=== PATIENT | female | born 1970 | race Caucasian/White ===

== ENCOUNTER 2017-01-29 11:55 | Emergency (ER) | payer OTHER ==
[~2017-01-29] VITALS: Ht 170.2 cm; Wt 90.5 kg
[~2017-01-29 11:55] MED LIST: ALBUAER2 INH; ATOR10TA88 PO; CETI10TA84 PO; CITA40TA4 PO; FENO134C PO; FERROUS SULFATE PO; LRS10 PO; NAPR500T3 PO; NSNN50 NAE; TNR25 PO
[2017-01-29 12:04] VITALS: TEMP 36.9; Ht 170.2 cm; Wt 90.5 kg
[2017-01-29] MEDS ORDERED: VNTHFA/IN INH (12:22)
[2017-01-29] MEDS ORDERED: MOME6000 (12:22)
[2017-01-29] MEDS ORDERED: AZITHROMYCIN 250 MG TAB PO STA (12:40)
[2017-01-29] MEDS ORDERED: ALBUT/IPRATROP 3MG/0.5MG NEB 3 ML VIAL INH ONE (12:45)
[2017-01-29 12:56] VITALS: O2SAT 95
[2017-01-29 13:07] VITALS: PULSE 64; O2SAT 97
--- NOTE | 2017-01-29 13:09 | DIAGNOSTIC IMAGING REPORT ---
CHEST ONE VIEW PORTABLE CLINICAL HISTORY: Shortness of breath. COMPARISON STUDY: Chest radiograph August 21, 2014. FINDINGS: Lung volumes are at the lower limits of normal. Lungs are clear. There is no pneumothorax or pleural effusion. Cardiac size is normal. Mediastinal contours are normal. There is no evidence of pulmonary edema. IMPRESSION: No acute cardiopulmonary findings. Electronically signed by: Tay De Leon M.D. 01/29/2017 1:08 PM Dictated Date/Time: 01/29/2017 1:08 PM
[2017-01-29 13:13] LABS: HEMATOCRIT 38.3 % (37-47); MEAN CELL VOLUME 83.3 fL (80-100); MEAN CORPUSCULAR HEMOGLOBIN 28.5 pg (25-34); MEAN CORPUSCULAR HGB CONC 34.2 g/dl (32-36); MEAN PLATELET VOLUME 9.3 fL (7.4-10.4); PLATELET COUNT 317 K/uL (130-400); WHITE BLOOD COUNT 11.56 K/uL (4.8-10.8)
--- NOTE | 2017-01-29 13:16 | EMERGENCY ROOM VISIT NOTE ---
History Report prepared by Laura: Usman Patel Under the Supervision of: Dr. Yong Forte M.D. First contact with patient: 12:08 Chief Complaint: FLU LIKE SX Stated Complaint: SICK History of Present Illness The patient is a 46 year old female who presents to the Emergency Room with complaints of a persistent illness beginning about 3 days ago. She notes she initially developed a sore throat and then a cough. She reports being diagnosed with bronchitis 2 days ago, and was put on Augmentin and prednisone. She denies having any abdominal pain, but notes occasionally urinating with her cough. The patient last took Tylenol last night, and also uses an inhaler. Source of History: patient Onset: about 3 days ago Position: other (global) Quality: other (illness) Timing: other (persistent) Associated Symptoms: + cough, + sorethroat, + urinary symptoms (urination with cough), No abdominal pain Review of Systems See HPI for pertinent positives & negatives. A total of 10 systems reviewed and were otherwise negative. Past Medical & Surgical Medical Problems: (1) History of acute bronchitis Family History Diabetes mellitus Heart disease Hypertension Lung disease Social History Smoking Status: Never Smoker Alcohol Use: none Drug Use: none Marital Status: Housing Status: lives with family Occupation Status: other Current/Historical Medications Scheduled Albuterol Hfa (Ventolin Hfa), 2-4 PUFFS INH Q6H Atenolol (Atenolol), 25 MG PO QAM Atorvastatin (Lipitor), 10 MG PO QAM Azithromycin (Zithromax), 250 MG PO DAILY Cetirizine (Zyrtec), 10 MG PO QAM Citalopram (Citalopram Hydrobromide), 40 MG PO QAM Fenofibrate Micronized (Tricor), 134 MG PO QAM Miscellaneous Medications Mometasone Furoate (Nasal) (Mometasone Furoate) Allergies Coded Allergies: Oxycodone (Verified Adverse Reaction, Unknown, "IT WINDS ME UP!"-CAN'T RELAX-ALSO INEFFECTIVE, 01/29/17) Physical Exam Vital Signs Date Time Temp Pulse Resp B/P Pulse Ox O2 Delivery O2 Flow Rate FiO2 01/29/17 14:42 104 18 129/81 95 Room Air 01/29/17 13:08 76 01/29/17 13:07 64 16 97 Room Air 01/29/17 12:56 95 01/29/17 12:04 36.9 68 18 157/104 95 Physical Exam GENERAL: Patient is a healthy-appearing well-nourished HEAD: Normocephalic atraumatic EYES: Ocular movements intact pupils equal and react to light OROPHARYNX mucous membranes are moist no exudates present no erythema or edema present NECK: Supple no nuchal rigidity CHEST: Good equal expansion LUNGS: Bilateral wheezing in the bases. CARDIAC: Normal S1 and S2 ABDOMEN: Soft nontender no guarding BACK: No CVA tenderness EXTREMITIES: No pain upon palpation normal muscle strength in all groups no clubbing cyanosis or edema NEURO: Patient is following commands is answering questions appropriately. Alert and oriented x3 Cranial Nerves 2-12 grossly intact Medical Decision & Procedures ER Provider Diagnostic Interpretation: Radiology results as stated below per my review and radiologist interpretation: CHEST ONE VIEW PORTABLE FINDINGS: Lung volumes are at the lower limits of normal. Lungs are clear. There is no pneumothorax or pleural effusion. Cardiac size is normal. Mediastinal contours are normal. There is no evidence of pulmonary edema. IMPRESSION: No acute cardiopulmonary findings. Electronically signed by: Tay De Leon M.D. 01/29/2017 1:08 PM Dictated Date/Time: 01/29/2017 1:08 PM Laboratory Results 01/29/17 12:50 Red Blood Count 4.60, Mean Corpuscular Volume 83.3, Mean Corpuscular Hemoglobin 28.5, Mean Corpuscular Hemoglobin Concent 34.2, Mean Platelet Volume 9.3, Neutrophils (%) (Auto) 69.0, Lymphocytes (%) (Auto) 22.5, Monocytes (%) (Auto) 7.5, Eosinophils (%) (Auto) 0.4, Basophils (%) (Auto) 0.3, Neutrophils # (Auto) 7.98, Lymphocytes # (Auto) 2.60, Monocytes # (Auto) 0.87, Eosinophils # (Auto) 0.05, Basophils # (Auto) 0.03 01/29/17 12:50 Test 01/29/17 12:17 01/29/17 12:50 01/29/17 13:03 01/29/17 13:30 Influenza Type A (RT-PCR) Neg for Influ A (NEG) Influenza Type A Antigen Neg for Influ A (NEG) Influenza Type B Antigen Neg for Influ B (NEG) Influenza Type B (RT-PCR) Neg for Influ B (NEG) White Blood Count 11.56 K/uL (4.8-10.8) Red Blood Count 4.60 M/uL (4.2-5.4) Hemoglobin 13.1 g/dL (12.0-16.0) Hematocrit 38.3 % (37-47) Mean Corpuscular Volume 83.3 fL (80-100) Mean Corpuscular Hemoglobin 28.5 pg (25-34) Mean Corpuscular Hemoglobin Concent 34.2 g/dl (32-36) Platelet Count 317 K/uL (130-400) Mean Platelet Volume 9.3 fL (7.4-10.4) Neutrophils (%) (Auto) 69.0 % Lymphocytes (%) (Auto) 22.5 % Monocytes (%) (Auto) 7.5 % Eosinophils (%) (Auto) 0.4 % Basophils (%) (Auto) 0.3 % Neutrophils # (Auto) 7.98 K/uL (1.4-6.5) Lymphocytes # (Auto) 2.60 K/uL (1.2-3.4) Monocytes # (Auto) 0.87 K/uL (0.11-0.59) Eosinophils # (Auto) 0.05 K/uL (0-0.5) Basophils # (Auto) 0.03 K/uL (0-0.2) RDW Standard Deviation 39.9 fL (36.4-46.3) RDW Coefficient of Variation 13.3 % (11.5-14.5) Immature Granulocyte % (Auto) 0.3 % Immature Granulocyte # (Auto) 0.03 K/uL (0.00-0.02) Anion Gap 5.0 mmol/L (3-11) Est Creatinine Clear Calc Drug Dose 118.6 ml/min Estimated GFR () 120.5 Estimated GFR (Non- 103.9 BUN/Creatinine Ratio 20.1 (10-20) Calcium Level 9.2 mg/dl (8.5-10.1) Total Bilirubin 0.3 mg/dl (0.2-1) Aspartate Amino Transf (AST/SGOT) 10 U/L (15-37) Alanine Aminotransferase (ALT/SGPT) 22 U/L (12-78) Alkaline Phosphatase 84 U/L (45-117) Total Protein 7.9 gm/dl (6.4-8.2) Albumin 3.7 gm/dl (3.4-5.0) Globulin 4.2 gm/dl (2.5-4.0) Albumin/Globulin Ratio 0.9 (0.9-2) Urine Color YELLOW Urine Appearance CLEAR (CLEAR) Urine pH 6.5 (4.5-7.5) Urine Specific [place] 1.003 (1.000-1.030) Urine Protein NEG (NEG) Urine Glucose (UA) NEG (NEG) Urine Ketones NEG (NEG) Urine Occult Blood NEG (NEG) Urine Nitrite NEG (NEG) Urine Bilirubin NEG (NEG) Urine Urobilinogen NEG (NEG) Urine Leukocyte Esterase NEG (NEG) Labs reviewed by ED physician. Medications Administered Medications (Trade) Dose Ordered Sig/Elizabeth Route Start Time Stop Time Status Last Admin Dose Admin Albuterol/ Ipratropium (Duoneb) 12 ml ONE ONCE INH 01/29/17 12:45 01/29/17 12:46 DC 01/29/17 13:06 12 ML Azithromycin (Zithromax Tab) 500 mg NOW STAT PO 01/29/17 12:40 01/29/17 12:44 DC 01/29/17 13:03 500 MG Ketorolac Tromethamine (Toradol Inj) 30 mg NOW STAT IV 01/29/17 13:29 01/29/17 13:30 DC 01/29/17 13:56 30 MG ECG Indication: other (illness) Rate (beats per minute): 62 Rhythm: normal sinus Findings: no acute ischemic change, no ectopy ED Course 1236: Past medical records reviewed. The patient was evaluated in room A12B. A complete history and physical examination was performed. 1240: Ordered Zithromax Tab 500 mg PO. 1245: Ordered Duoneb 12 ml INH. 1329: Ordered Toradol Inj 30 mg IV, and NSS 1,000 ml @ 999 mls/hr IV. 1420: Upon reexamination the patient is doing well. I discussed results and treatment plan with the patient. She verbalizes agreement and understanding. The patient is ready for discharge. Medical Decision Differential diagnosis: Etiologies such as infections, reactive airway disease, pneumonia, pneumothorax , COPD, CHF, cardiac ischemia, pulmonary embolism, musculoskeletal, gastrointestinal, as well as others were entertained. This is a 46-year-old female who presents emergency department complaining of upper respiratory like symptoms. The patient was given a DuoNeb breathing treatment in the emergency department. She was a 28 started on prednisone as well as Augmentin and given cough syrup by her primary care physician. I do believe the patient's white blood count is elevated due to starting prednisone. I believe the patient is well enough to be discharged home. I will increase her coverage by placing the patient on azithromycin. She was given a spacer for her inhaler at home. Patient was in agreement with the treatment plan. Impression Primary Impression: Bronchitis Scribe Attestation The scribe's documentation has been prepared under my direction and personally reviewed by me in its entirety. I confirm that the note above accurately reflects all work, treatment, procedures, and medical decision making performed by me. Departure Information Dispostion Home / Self-Care Prescriptions Azithromycin (ZITHROMAX) 250 Mg Tab 250 MG PO DAILY, #4 TAB Prov: Yong Forte MD 01/29/17 Referrals Rosalind Pruitt M.D. (PCP) Patient Instructions ED URI Viral W Wheezing, My [facility] Additional Instructions Continue taking Prednisone, Augmentin and cough syrup Take 1000 mg Tylenol every 6 hours Take 600 mg Ibuprofen every 6 hours Use inhaler twice every 6 hours Use honey for cough Culture results are usually available in approx 48 hours You have been examined and treated today on an emergency basis only. This is not a substitute for, or an effort to provide, complete comprehensive medical care. It is impossible to recognize and treat all injuries or illnesses in a single emergency department visit. It is therefore important that you follow up closely with Dr Pruitt. Call as soon as possible for an appointment. Thank you for your time and consideration. I look forward to speaking with you again soon. Please don't hesitate to call us if you have any questions.
[2017-01-29 13:22] LABS: URINE APPEARANCE CLEAR (CLEAR); URINE BILIRUBIN NEG (NEG); URINE COLOR YELLOW; URINE NITRITE NEG (NEG); URINE PH 6.5 (4.5-7.5); URINE SPECIFIC GRAVITY 1.003 (1.000-1.030); UROBILINOGEN NEG (NEG)
[2017-01-29 13:25] LABS: MANUAL MICROSCOPIC REQUIRED? NO; REVIEW REQ? NO
[2017-01-29] MEDS ORDERED: SODIUM CHLORIDE 0.9% 1000ML 1,000 ML IV STA (13:29)
[2017-01-29] MEDS ORDERED: KETOROLAC TROMETHAMINE 30 MG/ML VIAL IV STA (13:29)
[2017-01-29 13:40] LABS: BUN/CREATININE RATIO 20.1 (10-20); CALCIUM 9.2 mg/dl (8.5-10.1); CREATININE 0.67 mg/dl (0.60-1.20); POTASSIUM 3.7 mmol/L (3.5-5.1)
[2017-01-29 13:41] LABS: BASO % 0.3 %; BASO ABS # 0.03 K/uL (0-0.2); COMPLETE YES; EOS % 0.4 %; IG% 0.3 %; LYMPH % 22.5 %; MONO % 7.5 %
[2017-01-29 13:43] LABS: ALB/GLOB RATIO 0.9 (0.9-2)
[2017-01-29] MEDS ORDERED: AZIT250T5 PO (13:52)
[2017-01-29 14:18] LABS: INFLUENZA A PCR Neg for Influ A (NEG); INFLUENZA B PCR Neg for Influ B (NEG)
[2017-01-29 14:42] VITALS: BP 129/81; PULSE 104; O2SAT 95
[2017-02-01 13:33] LABS: BORDETELLA PERTUSSIS SOURCE Nasal Swab
== END 2017-01-29 14:42 | disposition home or self-care (01) ==
LOC: C.EDB 11:57 → C.EDA 14:42
DX: J40 Bronchitis, not specified as acute or chronic (principal); Z79.899 Other long term (current) drug therapy; Z88.5 Allergy status to narcotic agent; Z83.3 Family history of diabetes mellitus; Z82.49 Family history of ischemic heart disease and other diseases of the circulatory system

== ENCOUNTER 2018-03-15 19:17 | Emergency (ER) | payer OTHER ==
[~2018-03-15] VITALS: Ht 170.2 cm; Wt 89.1 kg
[~2018-03-15 19:17] MED LIST changes: -ALBUAER2 INH; +ATOR10TA82 PO; -ATOR10TA88 PO; -FERROUS SULFATE PO; -LRS10 PO; +MOME6000 NAE; -NAPR500T3 PO; -NSNN50 NAE; +VNTHFA/IN INH
[2018-03-15 19:21] VITALS: TEMP 36.7; Ht 170.2 cm; Wt 89.1 kg
[2018-03-15] MEDS ORDERED: IBUPROFEN 200 MG TAB PO STA (19:34)
[2018-03-15] MEDS ORDERED: ACETAMINOPHEN 500 MG TAB PO STA (19:34)
[2018-03-15] MEDS ORDERED: ALBUT/IPRATROP 3MG/0.5MG NEB 3 ML VIAL INH STA (19:34)
--- NOTE | 2018-03-15 19:45 | EMERGENCY ROOM VISIT NOTE ---
History Report prepared by Laura: Samaria Ascencio Under the Supervision of: Dr. Nathan Jacques M.D. First contact with patient: 19:25 Chief Complaint: COUGH Stated Complaint: COUGH History of Present Illness The patient is a 47 year old white female with a past medical history of bronchitis, pneumonia who presents to the ED with a cc of constant cough beginning 2 weeks ago. Cough produces thick clear sputum. She finished a course of Augmentin last week to no relief. Positive upset stomach, diarrhea, chest pain. She does not smoke. She has had sick contacts at work. She notes that she traveled to [place] over the weekend. Source of History: patient Onset: 2 weeks ago Position: chest Quality: other (cough) Timing: constant Associated Symptoms: + chest pain, + diarrhea Note: Pt reports upset stomach. Review of Systems See HPI for pertinent positives and negatives. A total of ten systems were reviewed and were otherwise negative. Past Medical & Surgical Medical Problems: (1) History of acute bronchitis Family History Diabetes mellitus Heart disease Hypertension Lung disease Social History Smoking Status: Never Smoker Alcohol Use: none Drug Use: none Marital Status: Housing Status: lives with family Occupation Status: other Current/Historical Medications Scheduled Atenolol (Atenolol), 25 MG PO QAM Atorvastatin (Lipitor), 10 MG PO QAM Cetirizine (Zyrtec), 10 MG PO QAM Citalopram (Citalopram Hydrobromide), 40 MG PO QAM Fenofibrate Micronized (Tricor), 134 MG PO QAM Mometasone Furoate (Nasal) (Mometasone Furoate), 2 SPRAYS SHARIF DAILY Multivitamin (Multivitamin), 1 TAB PO DAILY Scheduled PRN Albuterol Hfa (Ventolin Hfa), 2-4 PUFFS INH Q6H PRN for SOB/Wheezing Allergies Coded Allergies: Oxycodone (Verified Adverse Reaction, Unknown, "IT WINDS ME UP!"-CAN'T RELAX-ALSO INEFFECTIVE, 01/29/17) Physical Exam Vital Signs Date Time Temp Pulse Resp B/P (MAP) Pulse Ox O2 Delivery O2 Flow Rate FiO2 03/15/18 21:08 90 03/15/18 20:46 94 20 143/83 95 Room Air 03/15/18 20:03 97 Room Air 03/15/18 20:00 97 Room Air 03/15/18 19:21 36.7 100 18 142/97 97 Room Air Physical Exam GENERAL: Awake, alert, well-appearing, NAD, wearing glasses. HENT: Normocephalic, atraumatic. EYES: Normal conjunctiva. Sclera non-icteric. PERRL. No anisocoria. NECK: Supple. No nuchal rigidity. FROM. RESPIRATORY: CTAB, no rhonchi, wheezing, crackles CARDIAC: RRR, no MRG ABDOMEN: Soft, mild epigastric discomfort, not peritonitic, BS+ MSK: No chest wall TTP, no LE edema NEURO: GCS 15, CN 2-12 intact, moves all 4s on command. Deliberate stuttering speech. SKIN: No rash or jaundice noted. Medical Decision & Procedures ER Provider Diagnostic Interpretation: Radiology results as stated below per my review and radiologist interpretation: CHEST ONE VIEW PORTABLE HISTORY: 47 years-old Female EVALUATE RESPIRATORY DISTRESS.DYSPNEA acute respiratory distress with cough COMPARISON: Chest radiograph 01/29/2017 TECHNIQUE: Portable AP view of the chest FINDINGS: Cardiomediastinal and hilar silhouettes are within normal limits. No pneumothorax, pleural effusion, focal airspace consolidation or overt pulmonary edema. The bones of the chest appear grossly intact. Cholecystectomy clips noted. IMPRESSION: No acute process. The above report was generated using voice recognition software. It may contain grammatical, syntax or spelling errors. Electronically signed by: Marlon Dimas M.D. 03/15/2018 8:16 PM Dictated Date/Time: 03/15/2018 8:15 PM Laboratory Results 03/15/18 19:55 Red Blood Count 4.88, Mean Corpuscular Volume 83.0, Mean Corpuscular Hemoglobin 28.5, Mean Corpuscular Hemoglobin Concent 34.3, Mean Platelet Volume 9.4, Neutrophils (%) (Auto) 62.7, Lymphocytes (%) (Auto) 26.2, Monocytes (%) (Auto) 8.6, Eosinophils (%) (Auto) 1.9, Basophils (%) (Auto) 0.2, Neutrophils # (Auto) 3.27, Lymphocytes # (Auto) 1.37, Monocytes # (Auto) 0.45, Eosinophils # (Auto) 0.10, Basophils # (Auto) 0.01 03/15/18 19:55 Test 03/15/18 19:55 White Blood Count 5.22 K/uL (4.8-10.8) Red Blood Count 4.88 M/uL (4.2-5.4) Hemoglobin 13.9 g/dL (12.0-16.0) Hematocrit 40.5 % (37-47) Mean Corpuscular Volume 83.0 fL (80-100) Mean Corpuscular Hemoglobin 28.5 pg (25-34) Mean Corpuscular Hemoglobin Concent 34.3 g/dl (32-36) Platelet Count 222 K/uL (130-400) Mean Platelet Volume 9.4 fL (7.4-10.4) Neutrophils (%) (Auto) 62.7 % Lymphocytes (%) (Auto) 26.2 % Monocytes (%) (Auto) 8.6 % Eosinophils (%) (Auto) 1.9 % Basophils (%) (Auto) 0.2 % Neutrophils # (Auto) 3.27 K/uL (1.4-6.5) Lymphocytes # (Auto) 1.37 K/uL (1.2-3.4) Monocytes # (Auto) 0.45 K/uL (0.11-0.59) Eosinophils # (Auto) 0.10 K/uL (0-0.5) Basophils # (Auto) 0.01 K/uL (0-0.2) RDW Standard Deviation 38.5 fL (36.4-46.3) RDW Coefficient of Variation 12.8 % (11.5-14.5) Immature Granulocyte % (Auto) 0.4 % Immature Granulocyte # (Auto) 0.02 K/uL (0.00-0.02) Prothrombin Time 10.7 SECONDS (9.0-12.0) Prothromb Time International Ratio 1.0 (0.9-1.1) Activated Partial Thromboplast Time 27.2 SECONDS (21.0-31.0) Partial Thromboplastin Ratio 1.0 Anion Gap 7.0 mmol/L (3-11) Est Creatinine Clear Calc Drug Dose 123.8 ml/min Estimated GFR () 122.1 Estimated GFR (Non- 105.3 BUN/Creatinine Ratio 15.7 (10-20) Calcium Level 8.8 mg/dl (8.5-10.1) Total Bilirubin 0.4 mg/dl (0.2-1) Aspartate Amino Transf (AST/SGOT) 18 U/L (15-37) Alanine Aminotransferase (ALT/SGPT) 20 U/L (12-78) Alkaline Phosphatase 79 U/L (45-117) Total Protein 7.9 gm/dl (6.4-8.2) Albumin 3.6 gm/dl (3.4-5.0) Globulin 4.3 gm/dl (2.5-4.0) Albumin/Globulin Ratio 0.8 (0.9-2) Laboratory results reviewed by me Medications Administered Medications (Trade) Dose Ordered Sig/Elizabeth Route Start Time Stop Time Status Last Admin Dose Admin Acetaminophen (Tylenol Tab) 1,000 mg NOW STAT PO 03/15/18 19:34 03/15/18 19:35 DC 03/15/18 19:57 1,000 MG Albuterol/ Ipratropium (Duoneb) 3 ml NOW STAT INH 03/15/18 19:34 03/15/18 19:35 DC 03/15/18 19:57 3 ML Ibuprofen (Advil Tab) 400 mg NOW STAT PO 03/15/18 19:34 03/15/18 19:36 DC 03/15/18 19:57 400 MG ECG Per My Interpretation Indication: chest pain Rate (beats per minute): 83 Rhythm: sinus rhythm Findings: T-wave inversion (single TWI lead 3), other (normal intervals, normal axis) Comparison ECG Date: 29-Jan-2017 Change: no significant change ED Course 1927: The patient was evaluated in room B6. A complete history and physical exam was performed. 2121: I reevaluated the patient. Discussed results and discharge instructions: She verbalized understanding and agreement. The patient is ready for discharge. Medical Decision Nursing notes reviewed. Ancillary studies and prior records reviewed. The patient is a 47 year old white female with a past medical history of bronchitis, pneumonia who presents to the ED with a cc of constant cough beginning 2 weeks ago. Differential diagnosis: Etiologies such as infections, reactive airway disease, pneumonia, pneumothorax , COPD, CHF, cardiac ischemia, pulmonary embolism, musculoskeletal, gastrointestinal, as well as others were entertained. Patient was seen and evaluated the bedside. Patient has had some issues with some recurrent bronchitis and pneumonia. Patient is noted some cough this been ongoing for approximately 2 weeks. Patient had finished a course of Augmentin approximately week prior. Patient noted that her most recent bowel movement it was more watery in nature. Patient denies any stream or well water, hunting, camping, travel. The patient did have a recent antibiotic use. Patient did have blood work completed along with a chest x-ray. Patient's blood work is very reassuring. White blood cell counts within normal limits patient is not anemic. Kidney functions normal. Patient's chest x-ray is clear. The patient is afebrile with normal vital signs. I believe the patient is suitable for outpatient follow-up and treatment at this time. Patient was given strict follow-up, discharge, and return precautions. All questions were answered. Patient was deemed suitable for outpatient follow-up at this time. Patient agreed with the plan of care and was safely discharged home. Medication Reconcilliation Current Medication List: was personally reviewed by me Blood Pressure Screening Patient's blood pressure: Elevated blood pressure Blood pressure disposition: Referred to PCP Impression Primary Impression: Acute bronchitis Additional Impression: Hypokalemia Scribe Attestation The scribe's documentation has been prepared under my direction and personally reviewed by me in its entirety. I confirm that the note above accurately reflects all work, treatment, procedures, and medical decision making performed by me. Departure Information Dispostion Home / Self-Care Referrals Rosalind Pruitt M.D. (PCP) Patient Instructions Bronchitis Acute, Hypokalemia [place], My [facility] Additional Instructions Please return to the emergency department if you have worsening or recurrent symptoms not amenable to at-home treatment. Please call for a follow-up appointment with her primary care physician. Please take your medications as prescribed. If you have other concerns and/or complaints please feel free to also call your primary care physician's office or return the ED for further evaluation, management, and treatment. You may take 800 mg Ibuprofen every 6 hours as needed for pain/fever with food unless told by your physician not to take NSAIDs. You may take tylenol 1000 mg every 6 hours as needed for pain/fever unless told by your physician to not take it or have liver problems. You may take motrin and tylenol separately or at the same time. Take your medications as prescribed. You have been examined and treated today on an emergency basis only. This is not a substitute for, or an effort to provide, complete comprehensive medical care. It is impossible to recognize and treat all injuries or illnesses in a single emergency department visit. It is therefore important that you follow up closely with [facility], your PCP, and/or your specialist(s). Call as soon as possible for an appointment. Thank you for your time and consideration. I look forward to speaking with you again soon. Please don't hesitate to call us if you have any questions. Problem Qualifiers Primary Impression: Acute bronchitis Bronchitis organism: unspecified organism Qualified Codes: J20.9 - Acute bronchitis, unspecified
[2018-03-15] MEDS ORDERED: MULT-506 PO (19:54)
[2018-03-15 20:00] VITALS: O2SAT 97
[2018-03-15 20:14] LABS: BASO % 0.2 %; BASO ABS # 0.01 K/uL (0-0.2); EOS % 1.9 %; HEMATOCRIT 40.5 % (37-47); HEMOGLOBIN 13.9 g/dL (12.0-16.0); IG# 0.02 K/uL (0.00-0.02); LYMPH % 26.2 %; LYMPH ABS # 1.37 K/uL (1.2-3.4); MEAN CORPUSCULAR HEMOGLOBIN 28.5 pg (25-34); MEAN CORPUSCULAR HGB CONC 34.3 g/dl (32-36); MEAN PLATELET VOLUME 9.4 fL (7.4-10.4); MONO % 8.6 %; MONO ABS # 0.45 K/uL (0.11-0.59); NEUT % 62.7 %; NEUT ABS # 3.27 K/uL (1.4-6.5); PLATELET COUNT 222 K/uL (130-400); RED CELL DISTRIBUTION WIDTH CV 12.8 % (11.5-14.5); RED CELL DISTRIBUTION WIDTH SD 38.5 fL (36.4-46.3); WHITE BLOOD COUNT 5.22 K/uL (4.8-10.8)
--- NOTE | 2018-03-15 20:18 | DIAGNOSTIC IMAGING REPORT ---
CHEST ONE VIEW PORTABLE HISTORY: 47 years-old Female EVALUATE RESPIRATORY DISTRESS.DYSPNEA acute respiratory distress with cough COMPARISON: Chest radiograph 01/29/2017 TECHNIQUE: Portable AP view of the chest FINDINGS: Cardiomediastinal and hilar silhouettes are within normal limits. No pneumothorax, pleural effusion, focal airspace consolidation or overt pulmonary edema. The bones of the chest appear grossly intact. Cholecystectomy clips noted. IMPRESSION: No acute process. The above report was generated using voice recognition software. It may contain grammatical, syntax or spelling errors. Electronically signed by: Marlon Dimas M.D. 03/15/2018 8:16 PM Dictated Date/Time: 03/15/2018 8:15 PM
[2018-03-15 20:26] LABS: PTT PATIENT 27.2 SECONDS (21.0-31.0)
[2018-03-15 20:33] LABS: ALBUMIN 3.6 gm/dl (3.4-5.0); CALCIUM 8.8 mg/dl (8.5-10.1); CREATININE 0.63 mg/dl (0.60-1.20)
[2018-03-15 20:36] LABS: TOTAL PROTEIN 7.9 gm/dl (6.4-8.2)
[2018-03-15] MEDS ORDERED: POTASSIUM CHLORIDE 20 MEQ TABCR PO STA (21:28)
[2018-03-15 21:59] VITALS: BP 130/66; PULSE 80; O2SAT 97
== END 2018-03-15 21:59 | disposition home or self-care (01) ==
LOC: C.EDB 19:18
DX: J20.9 Acute bronchitis, unspecified (principal); E87.6 Hypokalemia; Z88.5 Allergy status to narcotic agent

== ENCOUNTER 2019-11-09 07:41 | Inpatient (IN) ==
[2019-11-09] MEDS ORDERED: KETOROLAC 30 MG/ML VIAL IV ONE (08:07)
[2019-11-09 08:20] LABS: Basophils # (auto) 0.01 K/uL (0-0.2); Basophils % (auto) 0.1 %; Eosinophils # (auto) 0.02 K/uL (0-0.5); Eosinophils % (auto) 0.2 %; Hematocrit (blood only) 38.4 % (37-47); Hemoglobin 12.7 g/dL (12.0-16.0); Immature Granulocytes # (auto) 0.03 K/uL (0.00-0.02); Immature Granulocytes % (auto) 0.3 %; Lymphocytes # (auto) 1.21 K/uL (1.2-3.4); Lymphocytes % (auto) 10.5 %; Mean Corpuscular Hemoglobin 28.8 pg (25-34); Mean Corpuscular Hgb Conc 33.1 g/dL (32-36); Mean Corpuscular Volume 87.1 fL (80-100); Monocytes # (auto) 0.51 K/uL (0.11-0.59); Monocytes % (auto) 4.4 %; Neutrophils # (auto) 9.71 K/uL (1.4-6.5); Neutrophils % (auto) 84.5 %; Platelet Count 213 K/uL (130-400); RDW Coefficient of Variation 13.6 % (11.5-14.5); RDW Standard Deviation 43.6 fL (36.4-46.3); Red Blood Count 4.41 M/uL (4.2-5.4); White Blood Count 11.49 K/uL (4.8-10.8)
[2019-11-09 08:25] LABS: Appearance Urine Turbid (Clear); Bacteria Urine Automated 1+ (Negative); Blood Urine Trace (Negative); Color Urine Dark Yellow; Epithelial Cell Urine Auto >30 /lpf (0-5); Glucose Urine UA Negative (Negative); Ketones Urine Trace (Negative); Leukocyte Esterase Urine Negative (Negative); Nitrite Urine Negative (Negative); Protein Urine Negative (Negative); Specific Gravity Urine 1.031 (1.000-1.030); Urobilinogen Urine Negative (Negative)
[2019-11-09] MEDS ORDERED: SODIUM CHLORIDE 0.9% 1000ML 1,000 ML IV ONE (08:27)
[2019-11-09 08:35] LABS: Bilirubin Urine Negative (Negative); Ictotest Urine Negative (Negative)
[2019-11-09 08:36] LABS: BUN Creatinine Ratio 14.6 (10-20); Calcium 8.8 mg/dl (8.5-10.1); Creatinine Clr Calc Pharmacy 76.7 ml/min; Est GFR (African American) 75.5; Est GFR (Non-African American) 65.2; Potassium 3.5 mmol/L (3.5-5.1)
[2019-11-09 08:39] LABS: Amorphous Sediment Urine Present (None Prsent)
[2019-11-09] MEDS ORDERED: MoRPHine SULFATE 4 MG/ML 1 ML CARP\\VIAL IV STA (09:34)
[2019-11-09] MEDS ORDERED: ONDANSETRON INJ 2 MG/ML 2 ML VIAL IV STA (09:35)
--- NOTE | 2019-11-09 10:40 | Emergency Department Note ---
History of Present Illness General Chief complaint: Kidney Stone Stated complaint: kidney stones - cant urinate Time Seen by Provider: 11/09/19 07:48 Source: patient and family Mode of arrival: ambulatory Limitations: no limitations History of Present Illness Maximum Pain Intensity: 4 This 49-year-old white female presents for reevaluation of her right flank. Patient was seen here yesterday and diagnosed with a right-sided obstructing 4 mm kidney stone at the vesicoureteral junction. She states the pain never improved after discharge from the hospital. It has become worse. She has been unable to get comfortable. She states she has had chills and sweats. No fever. She continues to have nausea and vomiting. She has been unable to eat or retain anything for the last 2 days. No diarrhea. She feels as though she has been drinking adequately but is not urinating much. She is concerned that something is blocked. No urgency or visible hematuria. Occasional burning with urination as well as frequency. Patient does have a history of cerebral palsy. Home Medications Home Medications Medication Instructions Recorded Confirmed Type atorvastatin [Lipitor] 10 mg PO QAM 03/10/19 11/09/19 History multivitamin 1 tab PO QAM 03/10/19 11/09/19 History albuterol sulfate 90 mcg/actuation 2 puff INHALATION Q4H PRN #18 gm 08/14/19 11/09/19 Rx aerosol inhaler cetirizine 10 mg tablet 10 mg PO QAM 08/14/19 11/09/19 History citalopram 40 mg tablet 40 mg PO QAM #90 tab 08/14/19 11/09/19 Rx famotidine 20 mg tablet 20 mg PO BID 08/14/19 11/09/19 History mometasone 50 mcg/actuation nasal 2 spray INTRANASAL HS #17 gm 08/14/19 11/09/19 Rx spray hydrocodone-acetaminophen [[place]] 1 tab PO Q6H PRN #14 tab 11/08/19 11/09/19 Rx atenolol 25 mg PO QAM 11/09/19 11/09/19 History fenofibrate micronized 134 mg PO QAM 11/09/19 11/09/19 History tamsulosin [Flomax] 0.4 mg PO QAM 11/09/19 11/09/19 History Allergies Allergy/AdvReac Type Severity Reaction Status Date / Time oxycodone AdvReac Unknown "IT WINDS Verified 11/09/19 09:15 ME UP!"-CAN'T RELAX-ALSO INEFFECTIVE tramadol AdvReac nausea and Verified 11/09/19 09:15 vomiting Past Med/Surg History Medical History Acid reflux Allergic rhinitis Anxiety Asthma Cerebral palsy Hearing difficulty History of kidney stones Hyperlipidemia Hypertension Sensorineural hearing loss of both ears Surgical History H/O varicose vein ligation S/P carpal tunnel release R wrist S/P cholecystectomy S/P lumbar fusion S/P tubal ligation Family History Father Coronary heart disease Myocardial infarction Hypertension Mother , Jun 2019 Diabetes Interstitial lung disease Sjogren's disease Pacemaker Brother Diabetes Other No family history of bleeding disorder Social History Preferred Language: Syriac Communication Ability: Effective Visual Impairment: No Limitations Hearing Ability: Hard of Hearing Customer Consulting Manager Required: No Beliefs That Will Affect Care: None marital status: Current Living Situation: Spouse current occupational status: employed 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 Other Information That Helps Us Care for You: No Feels Safe at Home: Yes Safety Concerns: Feels Safe At This Time Smoking Status: Never smoker Do You Dip or Chew Tobacco: No ; Second Hand Exposure: Yes (childhood) ; Tobacco Cessation Education Requested by Patient: No Hx Alcohol Use: Yes Alcohol Intake Frequency: Rarely Hx Substance Use: No Childhood Exposure to Second-Hand Smoke: Yes Other Diet Comment: regular during the past year weight has: remained stable Dental Care, Regularly: Yes Physical Activity Frequency: 3-4 Times per Week Physical Activity Frequency Comment: walking at week Seatbelt Use: always Sunscreen Use: Yes Review of Systems Unchanged from yesterday's review. Physical Exam Vital Signs Vital Signs - 24 hr 11/09/19 07:46 11/09/19 09:41 Temperature 36.5 C Temperature Source Oral Pulse Rate 102 H Pulse Rate [Apical] 68 Respiratory Rate 20 16 Respiratory Effort / Characteristics Non-Labored Spontaneous Respiratory Depth Normal Respiratory Pattern Regular Blood Pressure 153/93 H Blood Pressure [Left Arm] 116/76 Blood Pressure Mean 113 Blood Pressure Mean [Left Arm] 89 Pulse Oximetry 96 97 Oxygen Delivery Method Room Air Room Air Sepsis Recent Fever Within 48 Hours No Sepsis Action Taken by Nursing No Action Required General: Well-developed, well-nourished, middle-aged white female, in obvious discomfort. Laying on the bed. Alert and oriented. Looks older than her stated age. Skin: Warm and dry with good turgor. No rashes or lesions. No ecchymosis or erythema. The patient is not diaphoretic. No abrasions. Heart: Heart RRR. No MGR. Peripheral pulses are 2+. Lungs: Lungs are clear to auscultation. No crackles rhonchi or wheezing. Good air movement. The patient is able to take a deep breath. Abdomen: Abdomen was inspected, auscultated, and palpated. Bowel sounds present x 4. Soft, right lower quadrant pain with palpation. No hepato-splenomegaly. No masses noted. No rebound, negative Joseph sign. No pain over McBurney's point. There is right-sided CVA tenderness. Musculoskeletal: Gross motor function of the upper and lower extremities is intact and unremarkable. Neurologic: Gross sensation is intact across the upper and lower extremities by soft touch. Course Administered Medications Acetaminophen (Tylenol) 650 mg PO Q8H [facility] Stop: 12/09/19 12:59 Last Admin: 11/10/19 13:08 Dose: 650 mg Documented by: [id number] Admin: 11/10/19 05:56 Dose: 650 mg Documented by: [id number] Admin: 11/09/19 20:12 Dose: 650 mg Documented by: [id number] Admin: 11/09/19 13:49 Dose: 650 mg Documented by: [id number] Atenolol (Tenormin) 25 mg PO [facility] Stop: 12/10/19 08:59 Last Admin: 11/10/19 08:24 Dose: 25 mg Documented by: [id number] Atorvastatin Calcium (Lipitor) [facility] [place]: 12/10/19 08:59 Last Admin: 11/10/19 08:24 Dose: 10 mg Documented by: [id number] Cetirizine HCl (Zyrtec) 10 mg PO [facility] Stop: 12/10/19 08:59 Last Admin: 11/10/19 08:25 Dose: 10 mg Documented by: [id number] Citalopram Hydrobromide (Celexa) 40 mg PO QAM [facility] Stop: 12/10/19 08:59 Last Admin: 11/10/19 08:24 Dose: 40 mg Documented by: [id number] Famotidine (Pepcid) 20 mg PO BID [facility] Stop: 12/09/19 20:59 Last Admin: 11/10/19 08:24 Dose: 20 mg Documented by: [id number] Admin: 11/09/19 20:12 Dose: 20 mg Documented by: [id number] Fluticasone Propionate (Flonase) 2 sprays NA HS [facility] Stop: 12/09/19 20:59 Last Admin: 11/09/19 20:12 Dose: 2 sprays Documented by: [id number] Heparin Sodium (Porcine) (Heparin Sodium (Porcine)) 5,000 units SQ Q8 [facility] Stop: 12/09/19 13:59 Last Admin: 11/10/19 13:08 Dose: Not Given Documented by: [id number] Admin: 11/10/19 05:57 Dose: 5,000 units Documented by: [id number] Cosigned by: [id number] Admin: 11/09/19 22:15 Dose: 5,000 units Documented by: [id number] Cosigned by: [id number] Admin: 11/09/19 14:49 Dose: 5,000 units Documented by: [id number] Cosigned by: [id number] Sodium Chloride (Nss 1000ml) 1,000 mls @ 80 mls/hr IV .[id number] [facility] Stop: 12/10/19 14:29 Last Admin: 11/10/19 15:24 Dose: 80 mls/hr Documented by: [id number] Ceftriaxone Sodium 2,000 mg/ (Dextrose) 70 mls @ 100 mls/hr IV Q24H [facility]; Protocol Stop: 11/12/19 14:59 Last Infusion: 11/10/19 16:49 Dose: 0 mls/hr Documented by: [id number] Admin: 11/10/19 15:24 Dose: 100 mls/hr Documented by: [id number] Miscellaneous (Order Awaiting Action) 1 ea N/A QS TAMARA Stop: 12/09/19 15:59 Last Admin: 11/10/19 15:24 Dose: Not Given Documented by: [id number] Admin: 11/10/19 08:24 Dose: Not Given Documented by: [id number] Admin: 11/09/19 23:24 Dose: Not Given Documented by: [id number] Admin: 11/09/19 19:27 Dose: Not Given Documented by: [id number] Multivitamins (Multivitamin Tab) 1 tab PO QAM [facility] Stop: 12/10/19 08:59 Last Admin: 11/10/19 08:24 Dose: 1 tab Documented by: [id number] Tamsulosin HCl (Flomax) 0.4 mg PO QAM [facility] Stop: 12/10/19 08:59 Last Admin: 11/10/19 08:24 Dose: 0.4 mg Documented by: [id number] Discontinued Medications Sodium Chloride (Nss 1000ml) 1,000 mls @ 999 mls/hr IV .Q1H1M ONE Stop: 11/09/19 09:27 Last Infusion: 11/09/19 09:50 Dose: 0 mls/hr Documented by: [id number] Admin: 11/09/19 08:46 Dose: 999 mls/hr Documented by: [id number] Sodium Chloride (Nss 1000ml) 1,000 mls @ 150 mls/hr IV .Q6H40M TAMARA Stop: 11/10/19 12:59 Last Admin: 11/10/19 09:20 Dose: Not Given Documented by: [id number] Infusion: 11/10/19 09:19 Dose: 0 mls/hr Documented by: [id number] Infusion: 11/10/19 08:07 Dose: 150 mls/hr Documented by: [id number] Admin: 11/10/19 03:04 Dose: 150 mls/hr Documented by: [id number] Infusion: 11/10/19 03:04 Dose: 150 mls/hr Documented by: [id number] Admin: 11/09/19 20:39 Dose: 150 mls/hr Documented by: [id number] Infusion: 11/09/19 20:26 Dose: 150 mls/hr Documented by: [id number] Admin: 11/09/19 13:45 Dose: 150 mls/hr Documented by: [id number] Ketorolac Tromethamine (Toradol) 30 mg IV NOW ONE Stop: 11/09/19 08:08 Last Admin: 11/09/19 08:12 Dose: 30 mg Documented by: [id number] Morphine Sulfate (Morphine Sulfate) 4 mg IV NOW STA Stop: 11/09/19 09:35 Last Admin: 11/09/19 09:47 Dose: 4 mg Documented by: [id number] Ondansetron HCl (Zofran) 4 mg IV NOW STA Stop: 11/09/19 09:36 Last Admin: 11/09/19 09:47 Dose: 4 mg Documented by: [id number] Medical Decision Making Differential Diagnosis Renal colic, gastroenteritis, UTI, appendicitis, ovarian cyst Medical Records Attestation: I reviewed the patient's medical records. Home Medications Current Medication List: was personally reviewed by me Laboratory Data Attestation: I reviewed the patient's lab results. CBC, PRP, and UA were obtained today. WBCs are mildly elevated at 11.49. PRP is unremarkable. Normal BUN and creatinine. Urine is dark yellow and turbid. Trace ketones, trace blood, 5-10 RBCs and 1+ bacteria per high-powered field. Epithelials are present. Result diagrams: 11/10/19 06:05 11/10/19 06:05 Lab Results 11/09/19 11/09/19 11/09/19 Range/Units 07:55 08:09 08:09 WBC 11.49 H (4.8-10.8) K/uL RBC 4.41 (4.2-5.4) M/uL Hgb 12.7 (12.0-16.0) g/dL Hct 38.4 (37-47) % MCV 87.1 (80-100) fL MCH 28.8 (25-34) pg MCHC 33.1 (32-36) g/dL RDW Std Deviation 43.6 (36.4-46.3) fL RDW Coeff of Susan 13.6 (11.5-14.5) % Plt Count 213 (130-400) K/uL MPV 9.0 (7.4-10.4) fL Immature Gran % (Auto) 0.3 % Neut % (Auto) 84.5 % Lymph % (Auto) 10.5 % [place] % (Auto) 4.4 % Eos % (Auto) 0.2 % Baso % (Auto) 0.1 % Immature Gran # (Auto) 0.03 H (0.00-0.02) K/uL Neut # (Auto) 9.71 H (1.4-6.5) K/uL Lymph # (Auto) 1.21 (1.2-3.4) K/uL [place] # (Auto) 0.51 (0.11-0.59) K/uL Eos # (Auto) 0.02 (0-0.5) K/uL Baso # (Auto) 0.01 (0-0.2) K/uL Sodium 137 (136-145) mmol/L Potassium 3.5 (3.5-5.1) mmol/L Chloride 105 (98-107) mmol/L Carbon Dioxide 26 (21-32) mmol/L Anion Gap 6.0 (3-11) BUN 15 (7-18) mg/dl Creatinine 1.00 (0.6-1.2) mg/dl Est Cr Clr Drug Dosing 76.7 ml/min Est GFR ( Amer) 75.5 Est GFR (Non-Af Amer) 65.2 BUN/Creatinine Ratio 14.6 (10-20) Glucose 131 H (70-99) mg/dl Calcium 8.8 (8.5-10.1) mg/dl Urine Color Dark Yellow Urine Appearance Turbid A (Clear) Urine pH 5.0 (4.5-7.5) Ur Specific [place] 1.031 H (1.000-1.030) Urine Protein Negative (Negative) Urine Glucose (UA) Negative (Negative) Urine Ketones Trace H (Negative) Urine Blood Trace H (Negative) Urine Nitrite Negative (Negative) Urine Bilirubin Negative (Negative) Urine Urobilinogen Negative (Negative) Ur Leukocyte Esterase Negative (Negative) Urine WBC (Auto) 1-5 (0-5) /hpf Urine RBC (Auto) 5-10 H (0-4) /hpf U Hyaline Cast (Auto) 10-30 H (0-5) /lpf U Epithel Cells (Auto) >30 H (0-5) /lpf Urine Bacteria (Auto) 1+ H (Negative) Amorphous Sediment Present A (None Prsent) Granular Casts 1-5 H (0) /lpf Blood Pressure Blood Pressure Findings: Normal blood pressure MDM Narrative Patient was evaluated in A3. Conservative care measures were discussed. IV was established. Labs were obtained. New UA was also obtained. Bladder scan obtained today revealed a residual of only 3 mL's. I did review her CT scan from yesterday. She had a 4 mm obstructing stone at the vesicoureteral junction. Patient was visibly uncomfortable and frequently writhing in bed. She was given Toradol 30 mg IV and morphine 4 mg IV for pain. She was also given Zofran 4 mg IV for nausea. Patient was hydrated with 1 L normal sterile saline IV bolus. Pain was able to be controlled in the ED with IV medication. She had Percocet for pain control at home, and this did not help her pain. She has effectively failed outpatient management. Patient will be admitted to the hospital for pain control for intractable renal colic. This was discussed with she and her and they are in agreement. I did speak with the [facility] hospitalist service. Please see that dictation for final management. Possibility of UA contamination was discussed with the hospitalist service. They will repeat it tomorrow. Impression & Plan Right ureteral stone, Renal colic Discharge Plan Visit Data *Final* Discharge Date/Time: 11/09/19 12:13 Chief Complaint: Kidney Stone Stated Complaint: kidney stones - cant urinate ED Provider: Yong Gaitan ED Midlevel Provider: Christiano Wayne Discharge Problem: Right ureteral stone, Renal colic Patient Disposition: Admitted As Inpatient Discharge Instructions Interventions: ED Discharge Assessment Last Done: 11/09/19 12:13
--- NOTE | 2019-11-09 11:44 | History & Physical Report ---
Date of Service November 09, 2019 Assessment & Plan (1) Right ureteral stone: (2) Hydroureteronephrosis: -Admit to [facility] - WBC is slightly elevated at 11.49, slightly decreased compared to yesterday's labs, creatinine = 1.0 where her baseline is typically 0.8, BUN = 15 -NSS at 150 mL/h x 1 day -Strain all urine, follow strict I's/O's -UA reviewed, appears contaminated recheck UA tomorrow morning after administration of some fluids, follow initial for culture sensitivities if grows out anything. Patient reports burning and increased frequency but likely is due to stone. -Pain control with MS IV 2-4 mg prn, Tylenol [id number] -Cont flomax -Avoid nephrotoxins -Follow a.m. WBC and PRP (3) Intractable pain: -Secondary to nephrolithiasis as above (4) Cerebral palsy: -Stable - holding meloxicam and ibuprofen for now with other agents for pain control (5) Hyperlipidemia: -Continue atorvastatin 10 mg QAM (6) Acid reflux: - Continue famotidine 20 mg BID (7) Hypertension: -Continue atenolol 25 mg QAM (8) DVT prophylaxis: teds, heparin subq CODE: FULL Dispo: From home, to assist with dc planning History of Present Illness Primary Care Provider: Carlie Scott DO This is a 49-year-old female with past medical history of cerebral palsy, GERD, HLD, who presents with right flank pain which began several days ago. She was evaluated in the ER last night due to significant pain, nausea and vomiting and was found to have a 4 mm obstructing calculus at the right vesiculouretero junction, causing moderate right hydroureteronephrosis. She was prescribed pain medication and antiemetics and sent home last evening. She re-presents this morning with similar complaints, notes that the pain medication did not work last night, and continues to have nausea and vomiting. She has not eaten anything solid since last (2 days ago) when this began. Patient denies any fevers, sweats or chills. She reports that she has not had increased urinary frequency as well as burning whenever she does go. She reports her urine has been a little dark. Her oral intake has been quite poor since she has felt extremely nauseous in the past 2 days. WBC is slightly elevated at 11.49, slightly decreased compared to yesterday's labs, creatinine = 1.0 where her baseline is typically 0.8, BUN = 15 Allergies Allergy/AdvReac Type Severity Reaction Status Date / Time oxycodone AdvReac Unknown "IT WINDS Verified 11/09/19 09:15 ME UP!"-CAN'T RELAX-ALSO INEFFECTIVE tramadol AdvReac nausea and Verified 11/09/19 09:15 vomiting Home Medications Home Medications Medication Instructions Recorded Confirmed Type atorvastatin [Lipitor] 10 mg PO QAM 03/10/19 11/09/19 History ibuprofen [Motrin IB] 200 mg PO TID PRN 03/10/19 11/09/19 History multivitamin 1 tab PO QAM 03/10/19 11/09/19 History albuterol sulfate 90 mcg/actuation 2 puff INHALATION Q4H PRN #18 gm 08/14/19 11/09/19 Rx aerosol inhaler cetirizine 10 mg tablet 10 mg PO QAM 08/14/19 11/09/19 History citalopram 40 mg tablet 40 mg PO QAM #90 tab 08/14/19 11/09/19 Rx famotidine 20 mg tablet 20 mg PO BID 08/14/19 11/09/19 History mometasone 50 mcg/actuation nasal 2 spray INTRANASAL HS #17 gm 08/14/19 11/09/19 Rx spray hydrocodone-acetaminophen [[place]] 1 tab PO Q6H PRN #14 tab 11/08/19 11/09/19 Rx atenolol 25 mg PO QAM 11/09/19 11/09/19 History fenofibrate micronized 134 mg PO QAM 11/09/19 11/09/19 History meloxicam 15 mg PO DAILY PRN 11/09/19 11/09/19 History tamsulosin [Flomax] 0.4 mg PO QAM 11/09/19 11/09/19 History Past Med/Surg History Social History Preferred Language: Uzbek Communication Ability: Effective Visual Impairment: No Limitations Hearing Ability: Hard of Hearing 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 Required: No Beliefs That Will Affect Care: None marital status: Current Living Situation: Spouse current occupational status: employed 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 Other Information That Helps Us Care for You: No Feels Safe at Home: Yes Safety Concerns: Feels Safe At This Time Smoking Status: Never smoker Do You Dip or Chew Tobacco: No ; Second Hand Exposure: Yes (childhood) ; Tobacco Cessation Education Requested by Patient: No Hx Alcohol Use: Yes Alcohol Intake Frequency: Rarely Hx Substance Use: No Childhood Exposure to Second-Hand Smoke: Yes Other Diet Comment: regular during the past year weight has: remained stable Dental Care, Regularly: Yes Physical Activity Frequency: 3-4 Times per Week Physical Activity Frequency Comment: walking at week Seatbelt Use: always Sunscreen Use: Yes Review of Systems Review of Systems: Constitutional: No fever, sweats or chills Eyes: No diplopia, no worsening or blurred vision ENT: normal hearing, no trouble swallowing Respiratory: No cough, sputum, dyspnea at rest or on exertion Cardiovascular: No chest pain, tightness or palpitations Abdomen: + Right-sided flank pain as described per HPI, + nausea, vomiting. No diarrhea or constipation Musculoskeletal: No joint pain, calf pain, swelling Neurologic: No weakness, numbness/tingling, or balance problems Psychiatric: No anxiety or depression Skin: No rash or itch Physical Exam Physical Exam: General: awake, alert, no apparent distress, + speech difficulty secondary to cerebral palsy Head: Normocephalic, atraumatic ENT: PERRL, EOMI, no pharyngeal exudate, mucous membranes moist Chest: Clear to auscultation, on room air, no adventitious breath sounds Cardiac: Regular rate and rhythm, no murmur, no JVD, normal peripheral pulses, good capillary refill Abdominal: NABS x 4 quadrants, soft, nondistended, nontender to palpation after receiving pain medications in the ER, no rebound, guarding or tenderness Extremities: Normal inspection, no peripheral edema or erythema, calfs nontender to palpation Psych: Normal mood and affect Neuro: AAO x 3, no gross motor deficits-she is able to move herself around in bed without difficulty, speech somewhat broken due to CP, no peripheral sensory deficits Skin: no rash or erythema Constitutional: WD/WN, vitals as above Eyes: normal visual horvath by confrontation and + anicteric sclerae Neck: normal visual inspection and trachea midline Respiratory: normal respiratory effort, lungs clear to auscultation Cardiovascular: Rate/Rhythm: regular rate and regular rhythm Gastrointestinal (Abdomen): Inspection/Auscultation: abdomen not distended Percussion/Palpation: abdomen soft; abdomen nontender Musculoskeletal: Head/Neck/Chest: normocephalic and head atraumatic Neg for peripheral LE edema, + pedal pulses Skin: no rashes, warm and dry Neurologic: awake; not confused Speech / Cognition: normal speech Psychiatric: Orientation: oriented x 3 Affect: + flat affect speech is with broken patten, but discernable and able to have an overall normal conversation with pt Lymphatic: Exam as done by Clari Walker DO Results & Data Vital Signs (Past 12 Hours) Vital Signs Temp Pulse Pulse Resp BP BP Pulse Ox 11/09/19 11:00 98 H 16 103/57 L 98 11/09/19 09:41 68 16 116/76 97 11/09/19 07:46 36.5 C 102 H 20 153/93 [address] SCAN OF THE ABDOMEN AND PELVIS WITHOUT IV CONTRAST CLINICAL HISTORY: Right flank pain. Hematuria. COMPARISON STUDY: Abdominal CT dated 07/11/2013. TECHNIQUE: CT scan of the abdomen and pelvis is performed from the lung bases to the proximal femora. Images are reviewed in the axial, sagittal, and coronal planes. IV contrast was not administered for this examination as per the referring clinician. A dose lowering technique was utilized adhering to the principles of ALARA. CT DOSE: 824.43 mGy.cm FINDINGS: Lung bases: The heart is normal in size and without pericardial effusion. The lung bases are clear noting dependent atelectasis. Liver: The unenhanced liver is normal in size, contour, and attenuation. There is no intrahepatic biliary ductal dilatation. Gallbladder: Surgically absent noting clips in the gallbladder fossa. Spleen: Normal in size and attenuation. Pancreas: Unremarkable. Adrenal glands: Unremarkable. Kidneys: The unenhanced kidneys are normal in size. There is a 4 mm obstructing calculus at the right vesicoureteral junction seen on image #[id number]. This causes moderate right hydroureteronephrosis. There is associated right-sided perinephric and periureteric stranding and fluid. There is an additional 3 mm nonobstructing calculus in the right kidney. No left renal calculi are identified and there is no left-sided hydronephrosis. There is no evidence of contour deforming renal mass lesion. Abdominal vasculature: The abdominal aorta is normal in course and caliber. Bowel: There are scattered colonic diverticula without CT evidence of acute diverticulitis. No bowel obstruction is seen. The appendix is well-visualized and normal. Peritoneum: There is no intraperitoneal free air or abdominal ascites. Lymphadenopathy: None. Pelvic viscera: The bladder is decompressed and grossly unremarkable. The uterus and adnexa are normal as visualized noting left ovarian follicles. Skeletal structures: There is postoperative change from L4-L5 spinal fusion. No lytic or blastic lesions are seen. IMPRESSION: 1. There is a 4 mm obstructing calculus at the right vesicoureteral junction. This causes moderate right hydroureteronephrosis. 2. There is an additional small nonobstructing right renal calculus. 3. Additional findings as above. ECG Additional Comments: 08-NOV-2019 12:43:25 [facility]-EDSTAT ROUTINE RETRIEVAL Normal sinus rhythm Moderate voltage criteria for LVH, may be normal variant Nonspecific ST abnormality Borderline ECG When compared with ECG of 10-MAR-2019 11:45, Nonspecific T wave abnormality no longer evident in Anterior leads Confirmed by Chidi Clay ([id number]) on 11/09/2019 7:46:32 AM 25mm/s 10mm/mV 150Hz 9.0.9 12SL 241 ANDRADE: 15 Referred by: Carlie Scott Confirmed By: Chidi Martins. rate 82 BPM FL interval 142 ms QRS duration 78 ms QT/QTc 390/455 ms P-R-T axes 50 -3 -2 Code Status & VTE Plan Code Status Full code -discussed with the patient and her at bedside Supervising Physician Co-Signing Physician Notes Pt seen and examined by me. Denies chest pain or SOB. Pt was dx with kidney stone in ED last night and d/c'd home, however pain continued to worsen. Pt has had minimal PO intake the last few days. She has had increased UOP since arrival to the ED. Agree with HPI/ROS as noted by PA See above for my exam in PE section Agree with plan as outlined above R renal stone Intolerance to PO Renal c/s IVF, flomax PG Care Time/CCT Total # of Minutes Spent Total Time Spent with Patient: Total time spent is greater than 50% in coord ination of care (as documented) at patient's floor/unit and/or counseling patient:
[2019-11-09] MEDS ORDERED: MoRPHine SULFATE 4 MG/ML 1 ML CARP\\VIAL IV PRN (12:30)
[2019-11-09] MEDS ORDERED: ALBUTEROL HFA 8 GM INHALER INH PRN (12:30)
[2019-11-09] MEDS ORDERED: ONDANSETRON INJ 2 MG/ML 2 ML VIAL IV PRN (12:30)
[2019-11-09] MEDS: SODIUM CHLORIDE 0.9% 1000ML 1,000 ML IV SCH ×2 (13:45→20:39)
[2019-11-09] MEDS: ACETAMINOPHEN 325 MG TAB PO SCH ×2 (13:49→20:12)
[2019-11-09] MEDS: HEPARIN SOD 5,000 UNIT/0.5 ML VIAL SQ SCH ×2 (14:49→22:15)
[2019-11-09] MEDS: FENOFIBRATE - ORDER AWAITING ACTION SCH ×2 (19:27→23:24)
[2019-11-09] MEDS: FAMOTIDINE 20 MG TAB PO SCH (20:12)
[2019-11-09] MEDS: FLUTICASONE PROPIONATE NA SPR 16 GM BTL SCH (20:12)
[2019-11-10] MEDS: SODIUM CHLORIDE 0.9% 1000ML 1,000 ML IV SCH ×3 (03:04→15:24)
[2019-11-10] MEDS: ACETAMINOPHEN 325 MG TAB PO SCH ×3 (05:56→21:02)
[2019-11-10] MEDS: HEPARIN SOD 5,000 UNIT/0.5 ML VIAL SQ SCH ×3 (05:57→21:05)
[2019-11-10 06:36] LABS: Hematocrit (blood only) 36.1 % (37-47); Hemoglobin 11.5 g/dL (12.0-16.0); Mean Corpuscular Hemoglobin 28.8 pg (25-34); Mean Corpuscular Hgb Conc 31.9 g/dL (32-36); Mean Corpuscular Volume 90.3 fL (80-100); Platelet Count 205 K/uL (130-400); RDW Standard Deviation 46.7 fL (36.4-46.3); White Blood Count 6.49 K/uL (4.8-10.8)
[2019-11-10 07:15] LABS: Albumin Level 2.8 gm/dl (3.4-5.0); BUN Creatinine Ratio 11.4 (10-20); Calcium 8.1 mg/dl (8.5-10.1); Est GFR (African American) 110.5; Est GFR (Non-African American) 95.4; Potassium 3.7 mmol/L (3.5-5.1)
[2019-11-10 07:18] LABS: Albumin Globulin Ratio 0.8 (0.9-2); Bilirubin,Total 0.3 mg/dl (0.2-1); Globulin 3.5 gm/dl (2.5-4.0); Total Protein 6.3 gm/dl (6.4-8.2)
[2019-11-10] MEDS: ATORVASTATIN 10 MG TAB PO SCH (08:24)
[2019-11-10] MEDS: TAMSULOSIN HCL 0.4 MG CAP PO SCH (08:24)
[2019-11-10] MEDS: ATENOLOL 25 MG TABLET PO SCH (08:24)
[2019-11-10] MEDS: FENOFIBRATE - ORDER AWAITING ACTION SCH ×3 (08:24→22:47)
[2019-11-10] MEDS: CITALOPRAM 40 MG TAB PO SCH (08:24)
[2019-11-10] MEDS: MULTIVITAMIN TAB PO SCH (08:24)
[2019-11-10] MEDS: FAMOTIDINE 20 MG TAB PO SCH ×2 (08:24→21:02)
[2019-11-10] MEDS: CETIRIZINE HCL 10 MG TABLET PO SCH (08:25)
--- NOTE | 2019-11-10 10:04 | Discharge Summary ---
Date of Service November 10, 2019 Admission HPI Per Admitting Provider This is a 49-year-old female with past medical history of cerebral palsy, GERD, HLD, who presents with right flank pain which began several days ago. She was evaluated in the ER last night due to significant pain, nausea and vomiting and was found to have a 4 mm obstructing calculus at the right vesiculouretero junction, causing moderate right hydroureteronephrosis. She was prescribed pain medication and antiemetics and sent home last evening. She re-presents this morning with similar complaints, notes that the pain medication did not work last night, and continues to have nausea and vomiting. She has not eaten anything solid since last (2 days ago) when this began. Patient denies any fevers, sweats or chills. She reports that she has not had increased urinary frequency as well as burning whenever she does go. She reports her urine has been a little dark. Her oral intake has been quite poor since she has felt extremely nauseous in the past 2 days. WBC is slightly elevated at 11.49, slightly decreased compared to yesterday's labs, creatinine = 1.0 where her baseline is typically 0.8, BUN = 15 Admission Exam Per Admitting Provider General: awake, alert, no apparent distress, + speech difficulty secondary to cerebral palsy Head: Normocephalic, atraumatic ENT: PERRL, EOMI, no pharyngeal exudate, mucous membranes moist Chest: Clear to auscultation, on room air, no adventitious breath sounds Cardiac: Regular rate and rhythm, no murmur, no JVD, normal peripheral pulses, good capillary refill Abdominal: NABS x 4 quadrants, soft, nondistended, nontender to palpation after receiving pain medications in the ER, no rebound, guarding or tenderness Extremities: Normal inspection, no peripheral edema or erythema, calfs nontender to palpation Psych: Normal mood and affect Neuro: AAO x 3, no gross motor deficits-she is able to move herself around in bed without difficulty, speech somewhat broken due to CP, no peripheral sensory deficits Skin: no rash or erythema Principal Diagnosis Right Ureteral stone with hydroureteronephrosis Discharge Data Allergies Allergy/AdvReac Type Severity Reaction Status Date / Time oxycodone AdvReac Unknown "IT WINDS Verified 11/09/19 09:15 ME UP!"-CAN'T RELAX-ALSO INEFFECTIVE tramadol AdvReac nausea and Verified 11/09/19 09:15 vomiting Consultations 11/09/19 11:21 ED Decision to Admit Stat 11/09/19 12:30 Consult Case Management - Discharge Planning Routine Hospital Course (1) Right ureteral stone: (2) Hydroureteronephrosis: -Admit to [facility] - WBC is slightly elevated at 11.49, slightly decreased compared to yesterday's labs, creatinine = 1.0 where her baseline is typically 0.8, BUN = 15 -NSS at 150 mL/h x 1 day -Strain all urine, follow strict I's/O's -UA reviewed, appears contaminated recheck UA tomorrow morning after administration of some fluids, follow initial for culture sensitivities if grows out anything. Patient reports burning and increased frequency but likely is due to stone. -Pain control with MS IV 2-4 mg prn, Tylenol [id number] -Cont flomax -Avoid nephrotoxins -Follow a.m. WBC and PRP (3) Intractable pain: -Secondary to nephrolithiasis as above (4) Cerebral palsy: -Stable - holding meloxicam and ibuprofen for now with other agents for pain control (5) Hyperlipidemia: -Continue atorvastatin 10 mg QAM (6) Acid reflux: - Continue famotidine 20 mg BID (7) Hypertension: -Continue atenolol 25 mg QAM (8) DVT prophylaxis: teds, heparin subq CODE: FULL Dispo: From home, CM to assist with dc planning Discharge Plan Discharge Items Reason For Visit: NEPHROLITHIASIS,INTRACTABLE PAIN Medications and DC Order Prescriptions: No Action cetirizine [Zyrtec] 10 mg tablet 10 mg PO QAM RF: 0 citalopram 40 mg tablet 40 mg PO QAM Qty: 90 RF: 3 albuterol sulfate 90 mcg/actuation HFA aerosol inhaler 2 puff INHALATION Q4H PRN (Reason: Shortness Of Breath Or Wheezing) Qty: 18 RF: 1 mometasone 50 mcg/actuation spray,non-aerosol 2 spray INTRANASAL HS Qty: 17 RF: 5 hydrocodone-acetaminophen [[place]] 5-325 mg tablet 1 tab PO Q6H PRN (Reason: pain) Qty: 14 RF: 0 multivitamin Tablet 1 tab PO QAM RF: 0 atorvastatin [Lipitor] 10 mg Tablet 10 mg PO QAM RF: 0 ibuprofen [Motrin IB] 200 mg Tablet 200 mg PO TID PRN (Reason: Pain) RF: 0 famotidine [Pepcid] 20 mg tablet 20 mg PO BID RF: 0 meloxicam 15 mg tablet 15 mg PO DAILY PRN (Reason: pain) RF: 0 atenolol 25 mg tablet 25 mg PO QAM RF: 0 fenofibrate micronized 134 mg capsule 134 mg PO QAM RF: 0 tamsulosin [Flomax] 0.4 mg capsule 0.4 mg PO QAM RF: 0 Admission Data Admit Date/Time: 11/09/19 11:25 Attending Provider: Carlos House Admit Provider: Clari Walker Primary Care Provider: Carlie Scott Other Providers: Eleonora Bang ; Clari Walker
[2019-11-10 12:32] LABS: Appearance Urine Clear (Clear); Bilirubin Urine Negative (Negative); Blood Urine 3+ (Negative); Color Urine Yellow; Glucose Urine UA Negative (Negative); Ketones Urine Negative (Negative); Leukocyte Esterase Urine 1+ (Negative); Nitrite Urine Negative (Negative); Protein Urine Negative (Negative); Specific Gravity Urine 1.003 (1.000-1.030); Urobilinogen Urine Negative (Negative)
[2019-11-10 12:42] LABS: Epithelial Cell Urine >30 /lpf (0-5); RBC Urine 0-4 /hpf (0-4)
[2019-11-10 12:44] LABS: Bacteria Urine 2+ (Negative); Hyaline Casts Urine 0-5 /lpf (0-5)
--- NOTE | 2019-11-10 13:53 | XRay Report ---
KUB CLINICAL HISTORY: R sided stone COMPARISON STUDY: CT of the abdomen and pelvis November 08, 2019. FINDINGS: Incidental note is made of cholecystectomy clips and an L4-L5 discectomy and fusion. Patter n is normal. There is possible visualization of a 3 mm distal right ureteral calculus. Evaluation dif ficult given stool within the rectum. IMPRESSION: Possible visualization of the 3 mm distal right ureteral calculus. ACT 112: Negative or not required by law. Electronically signed by: Tay De Leon M.D. 11/10/2019 1:52 PM
--- NOTE | 2019-11-10 14:17 | Hospitalist Progress Note ---
Date of Service November 10, 2019 Assessment & Plan (1) Right ureteral stone: * Initially with 4mm obstructing calculus at R UVJ on imaging from 11/08/19 with moderate R hydroureteronephrosis. Discharged from ER but returned with worsening right sided abdominal pain. WBC elevated at 11.4k on admission, Cr 1.0 (baseline 0.8), BUN 15. Afebrile. * NSS * Strain all urine --> Stone to lab for analysis * Initial UA with likely contamination. After passage of stone this morning, repeat UA obtained, which still has epi >> WBC, however is +leuk est and 2+ bacteria today. Given increased frequency/burning as well as elevated WBC on admission and fever prior to admission, will start ceftriaxone and follow cultures * Repeat KUB today with possible 3mm distal right ureteral calculus (seen on previous CT, however patient still with 3/10 pain with CVA tenderness) * Cr 0.73, BUN 8 today -- back to baseline * Urology consult -- appreciate input * NPO after midnight for possible procedure * Avoid nephrotoxic agents * Flomax * CBC, BMP in AM (2) Hydroureteronephrosis: * As above (3) Intractable pain: * Secondary to nephrolithiasis as above (4) Cerebral palsy: * Stable * Held meloxicam and ibuprofen for now with other agents for pain control while inpatient (5) Hyperlipidemia: * Continued atorvastatin 10 mg QAM (6) Acid reflux: * Continued famotidine 20 mg BID (7) Hypertension: * Continued atenolol 25 mg QAM (8) DVT prophylaxis: * teds, heparin subq while inpatient Dispo: Urology consult in AM, possible discharge Supervising Physician Co-Signing Physician Notes Attending Attestation: Chart reviewed in detail, care plan d/w RODNEY Alvarado. I agree w/ the rangel components of her documentation. KUB x-ray late today with ongoing visualization of a distal ureteral stone. Still with pain, and u/a suggestive of possible UTI. Patient to stay overnight for pain control & urology consultation in am. Carlos House MD Subjective Patient states she believes she passed her stone this morning. Stone was sent to lab for analysis. Pain improved, from 8-10/10 on admission to 3/10 this morning. She states she still has pain in her right low back with radiation to groin, however. She states she feels like she is ready for discharge. Discussed that we would like to obtain KUB and repeat UA prior to making final decision on discharge. Patient demonstrated understanding. Review of Systems Review of Systems: All systems reviewed & are unremarkable except as noted in HPI & below Constitutional: no fever and no chills Eyes: no diplopia and no problem reported Respiratory: no cough and no dyspnea Cardiovascular: no chest pain and no edema Gastrointestinal: + nausea (decreased); no abdominal pain, no vomiting, no constipation and no diarrhea/loose stools Genitourinary: + dysuria and + hematuria Integumentary: no rash and no lesions Physical Exam Constitutional: WD/WN, vitals as above no acute distress Eyes: + anicteric sclerae and PERRL Neck: trachea midline, no thyromegaly Respiratory: normal respiratory effort, lungs clear to auscultation Cardiovascular: RRR, no murmur, no edema Gastrointestinal (Abdomen): normal bowel sounds, soft, nontender, no hepatosplenomegaly Skin: no rashes, warm and dry Neurologic: patellar DTR's 2+ bilat, sensation intact able to move all extremities. slowed, but clear speech. Psychiatric: A+Ox3, euthymic affect Genitourinary: minimal R CVA tenderness Results & Data Vital Signs (Past 12 Hours) Vital Signs Temp Pulse Resp BP Pulse Ox 11/10/19 07:40 36.8 C 92 H 16 122/77 98 Laboratory Results 11/10/19 11/10/19 11/10/19 Range/Units 12:00 06:15 06:05 WBC (4.8-10.8) K/uL RBC (4.2-5.4) M/uL Hgb (12.0-16.0) g/dL Hct (37-47) % MCV (80-100) fL MCH (25-34) pg MCHC (32-36) g/dL RDW Std Deviation (36.4-46.3) fL RDW Coeff of Susan (11.5-14.5) % Plt Count (130-400) K/uL MPV (7.4-10.4) fL Sodium 142 (136-145) mmol/L Potassium 3.7 (3.5-5.1) mmol/L Chloride 112 H (98-107) mmol/L Carbon Dioxide 26 (21-32) mmol/L Anion Gap 4.0 (3-11) BUN 8 D (7-18) mg/dl Creatinine 0.73 (0.6-1.2) mg/dl Est Cr Clr Drug Dosing 105.0 ml/min Est GFR ( Amer) 110.5 Est GFR (Non-Af Amer) 95.4 BUN/Creatinine Ratio 11.4 (10-20) Glucose 83 (70-99) mg/dl Calcium 8.1 L (8.5-10.1) mg/dl Total Bilirubin 0.3 (0.2-1) mg/dl AST 13 L (15-37) U/L ALT 16 (12-78) U/L Alkaline Phosphatase 61 (45-117) U/L Total Protein 6.3 L (6.4-8.2) gm/dl Albumin 2.8 L (3.4-5.0) gm/dl Globulin 3.5 (2.5-4.0) gm/dl Albumin/Globulin Ratio 0.8 L (0.9-2) Urine Color Yellow Urine Appearance Clear (Clear) Urine pH 7.0 (4.5-7.5) Ur Specific [place] 1.003 (1.000-1.030) Urine Protein Negative (Negative) Urine Glucose (UA) Negative (Negative) Urine Ketones Negative (Negative) Urine Blood 3+ H (Negative) Urine Nitrite Negative (Negative) Urine Bilirubin Negative (Negative) Urine Urobilinogen Negative (Negative) Ur Leukocyte Esterase 1+ H (Negative) Urine RBC 0-4 (0-4) /hpf Urine WBC 10-30 H (0-5) /hpf Ur Epithelial Cells >30 H (0-5) /lpf Urine Bacteria 2+ H (Negative) Hyaline Casts 0-5 (0-5) /lpf Stone Source Pending Stone Weight Pending Stone Composition Pending Stone Composition 2 Pending Major Stone Nidus Pending 11/10/19 Range/Units 06:05 WBC 6.49 (4.8-10.8) K/uL RBC 4.00 L (4.2-5.4) M/uL Hgb 11.5 L (12.0-16.0) g/dL Hct 36.1 L (37-47) % MCV 90.3 (80-100) fL MCH 28.8 (25-34) pg MCHC 31.9 L (32-36) g/dL RDW Std Deviation 46.7 H (36.4-46.3) fL RDW Coeff of Susan 14.0 (11.5-14.5) % Plt Count 205 (130-400) K/uL MPV 9.0 (7.4-10.4) fL Sodium (136-145) mmol/L Potassium (3.5-5.1) mmol/L Chloride (98-107) mmol/L Carbon Dioxide (21-32) mmol/L Anion Gap (3-11) BUN (7-18) mg/dl Creatinine (0.6-1.2) mg/dl Est Cr Clr Drug Dosing ml/min Est GFR ( Amer) Est GFR (Non-Af Amer) BUN/Creatinine Ratio (10-20) Glucose (70-99) mg/dl Calcium (8.5-10.1) mg/dl Total Bilirubin (0.2-1) mg/dl AST (15-37) U/L ALT (12-78) U/L Alkaline Phosphatase (45-117) U/L Total Protein (6.4-8.2) gm/dl Albumin (3.4-5.0) gm/dl Globulin (2.5-4.0) gm/dl Albumin/Globulin Ratio (0.9-2) Urine Color Urine Appearance (Clear) Urine pH (4.5-7.5) Ur Specific [place] (1.000-1.030) Urine Protein (Negative) Urine Glucose (UA) (Negative) Urine Ketones (Negative) Urine Blood (Negative) Urine Nitrite (Negative) Urine Bilirubin (Negative) Urine Urobilinogen (Negative) Ur Leukocyte Esterase (Negative) Urine RBC (0-4) /hpf Urine WBC (0-5) /hpf Ur Epithelial Cells (0-5) /lpf Urine Bacteria (Negative) Hyaline Casts (0-5) /lpf Stone Source Stone Weight Stone Composition Stone Composition 2 Major Stone Nidus Diagnostic Findings KUB IMPRESSION: Possible visualization of the 3 mm distal right ureteral calculus. PG Care Time/CCT Total # of Minutes Spent Total Time Spent with Patient: Total time spent is greater than 50% in coordination of care (as documented) at patient's floor/unit and/or counseling patient:
[2019-11-10] MEDS ORDERED: cefTRIAXone SODIUM 2,000 MG in DEXTROSE 5% 50 ML IV SCH (15:00)
[2019-11-10] MEDS: FLUTICASONE PROPIONATE NA SPR 16 GM BTL SCH (21:02)
[2019-11-11] MEDS: SODIUM CHLORIDE 0.9% 1000ML 1,000 ML IV SCH (04:44)
[2019-11-11] MEDS: ACETAMINOPHEN 325 MG TAB PO SCH ×3 (04:45→12:31)
[2019-11-11] MEDS: HEPARIN SOD 5,000 UNIT/0.5 ML VIAL SQ SCH (04:46)
[2019-11-11 06:37] LABS: Hematocrit (blood only) 36.1 % (37-47); Hemoglobin 11.7 g/dL (12.0-16.0); Mean Corpuscular Hemoglobin 28.4 pg (25-34); Mean Corpuscular Hgb Conc 32.4 g/dL (32-36); Mean Corpuscular Volume 87.6 fL (80-100); Mean Platelet Volume 9.3 fL (7.4-10.4); Platelet Count 198 K/uL (130-400); RDW Coefficient of Variation 13.8 % (11.5-14.5); RDW Standard Deviation 44.1 fL (36.4-46.3); Red Blood Count 4.12 M/uL (4.2-5.4); White Blood Count 5.64 K/uL (4.8-10.8)
--- NOTE | 2019-11-11 07:09 | XRay Report ---
KUB HISTORY: Kidney stones. COMPARISON: KUB 11/10/2019. FINDINGS: The bowel gas pattern is unremarkable. There are no dilated loops of small bowel to suggest an obstruction. No renal calculi. No ureteral calculi. Calcifications in the deep pelvis likely rep resent phleboliths. These remain unchanged. The distal right ureteral calculus seen on the prior stud ies is not clearly identified. This could be obscured by overlying bowel gas or may have passed in th e interval. L4-5 posterior decompression and fusion. Prior cholecystectomy. No pneumoperitoneum or pn eumatosis. IMPRESSION: The distal right ureteral calculus seen on the prior studies is not clearly identified. This could be obscured by overlying bowel gas or may have passed in the interval. ACT 112: Negative or not required by law. Electronically signed by: Pernell Matthews M.D. 11/11/2019 7:08 AM
[2019-11-11 07:13] LABS: Albumin Level 2.9 gm/dl (3.4-5.0); BUN Creatinine Ratio 13.1 (10-20); Calcium 8.8 mg/dl (8.5-10.1); Creatinine Clr Calc Pharmacy 117.9 ml/min; Est GFR (African American) 119.1; Est GFR (Non-African American) 102.8; Potassium 3.6 mmol/L (3.5-5.1)
[2019-11-11 07:16] LABS: Albumin Globulin Ratio 0.8 (0.9-2); Bilirubin,Total 0.2 mg/dl (0.2-1); Globulin 3.6 gm/dl (2.5-4.0); Total Protein 6.5 gm/dl (6.4-8.2)
[2019-11-11] MEDS: FAMOTIDINE 20 MG TAB PO SCH (08:32)
[2019-11-11] MEDS: CITALOPRAM 40 MG TAB PO SCH (08:32)
[2019-11-11] MEDS: CETIRIZINE HCL 10 MG TABLET PO SCH (08:32)
[2019-11-11] MEDS: FENOFIBRATE - ORDER AWAITING ACTION SCH (08:32)
[2019-11-11] MEDS: TAMSULOSIN HCL 0.4 MG CAP PO SCH (08:32)
[2019-11-11] MEDS: MULTIVITAMIN TAB PO SCH (08:32)
[2019-11-11] MEDS: ATORVASTATIN 10 MG TAB PO SCH (08:32)
[2019-11-11] MEDS: ATENOLOL 25 MG TABLET PO SCH (08:32)
--- NOTE | 2019-11-11 08:55 | Urology Consultation ---
Date of Consultation November 11, 2019 Assessment & Plan (1) Right ureteral stone: (2) Hydroureteronephrosis: 49 yo F admitted with 4 mm right obstructing stone, moderate right hydronephrosis, renal colic. Lab work and chart reviewed. Afebrile, lab work stable. Pt reports stone passage; stone sent for analysis, which is pending. Stone not visualized on KUB today. Pt feeling better, some intermittent nonspecific right flank/abdominal pain much improved from admission likely reflux. Discussed possibility of retained stone fragment. Reviewed ER criteria. Okay to resume diet from perspective, ordered. Will follow-up outpatient with IVP in 2-3 weeks to confirm passage. Recommend continue on Flomax until follow-up. UC&S pending. Not highly suspicious of infection. Antibiotics per primary team. History of Present Illness Attending Physician: Gurdeep Gotti MD History of Present Illness 49 yo F admitted for intractable right flank pain secondary to 4 mm right obstructing stone, moderate right hydronephrosis. New consult. Pt presented to [facility] ED on 11/08/19 for right flank pain. Diagnosed with 4 mm obstructing right kidney stone and moderate right hydronephrosis. She was discharged to home to try MET. She returned to ED on 11/09/19 after failing outpatient management. Chart review: Afebrile Cr - 0.65 WBC - wnl Urine culture - repeat pending CT abd/pelvis 11/08 - 4 mm obstructing calculus at the right UVJ, moderate right hydroureteronephrosis; additional small nonobstructing right renal calculus KUB / - possible visualization of the 3 mm distal right ureteral calculus KUB / - previously seen right ureteral stone not visualized Stone analysis - pending Pt treated with IV Ceftriaxone Pt awake and lying in bed. No new issues overnight. States she passed the stone yesterday. Stone sent for analysis. Some intermittent mild right flank pain radiating to abdomen/groin. Pain controlled with Tylenol. Denies frequency, urgency, dysuria, or difficulty voiding. She reports some hematuria last night, but says she started her menses. Pt reports history of right nephrolithiasis. Reports spontaneous stone passage in the past. Last stone ~2005. Says she followed with urology in the remote past. Allergies Allergy/AdvReac Type Severity Reaction Status Date / Time oxycodone AdvReac Unknown "IT WINDS Verified 11/09/19 09:15 ME UP!"-CAN'T RELAX-ALSO INEFFECTIVE tramadol AdvReac nausea and Verified 11/09/19 09:15 vomiting Home Medications Home Medications Medication Instructions Recorded Confirmed Type atorvastatin [Lipitor] 10 mg PO QAM 03/10/19 11/09/19 History multivitamin 1 tab PO QAM 03/10/19 11/09/19 History albuterol sulfate 90 mcg/actuation 2 puff INHALATION Q4H PRN #18 gm 08/14/19 11/09/19 Rx aerosol inhaler cetirizine 10 mg tablet 10 mg PO QAM 08/14/19 11/09/19 History citalopram 40 mg tablet 40 mg PO QAM #90 tab 08/14/19 11/09/19 Rx famotidine 20 mg tablet 20 mg PO BID 08/14/19 11/09/19 History mometasone 50 mcg/actuation nasal 2 spray INTRANASAL HS #17 gm 08/14/19 11/09/19 Rx spray hydrocodone-acetaminophen [[place]] 1 tab PO Q6H PRN #14 tab 11/08/19 11/09/19 Rx atenolol 25 mg PO QAM 11/09/19 11/09/19 History fenofibrate micronized 134 mg PO QAM 11/09/19 11/09/19 History tamsulosin [Flomax] 0.4 mg PO QAM 11/09/19 11/09/19 History Patient History Medical History Acid reflux Allergic rhinitis Anxiety Asthma Cerebral palsy Hearing difficulty History of kidney stones Hyperlipidemia Hypertension Sensorineural hearing loss of both ears Surgical History H/O varicose vein ligation S/P carpal tunnel release R wrist S/P cholecystectomy S/P lumbar fusion S/P tubal ligation Family History Father Coronary heart disease Myocardial infarction Hypertension Mother , Jun 2019 Diabetes Interstitial lung disease Sjogren's disease Pacemaker Brother Diabetes Other No family history of bleeding disorder Social History (Reviewed 11/11/19 @ 09:16 by RUDOLPH Mcghee Preferred Language: Czech Communication Ability: Effective Visual Impairment: No Limitations Hearing Ability: Hard of Hearing Check Weigher Required: No Beliefs That Will Affect Care: None marital status: Current Living Situation: Spouse current occupational status: employed current occupation: [employer] Other Information That Helps Us Care for You: No Feels Safe at Home: Yes Safety Concerns: Feels Safe At This Time Smoking Status: Never smoker Do You Dip or Chew Tobacco: No ; Second Hand Exposure: Yes (childhood) ; Tobacco Cessation Education Requested by Patient: No Hx Alcohol Use: Yes Alcohol Intake Frequency: Rarely Hx Substance Use: No Childhood Exposure to Second-Hand Smoke: Yes Other Diet Comment: regular during the past year weight has: remained stable Dental Care, Regularly: Yes Physical Activity Frequency: 3-4 Times per Week Physical Activity Frequency Comment: walking at week Seatbelt Use: always Sunscreen Use: Yes Review of Systems Review of Systems: All systems reviewed & are unremarkable except as noted in HPI & below Physical Exam Constitutional: well developed and well nourished; no acute distress and not ill appearing Respiratory: normal respiratory effort Cardiovascular: Extremities: no pedal edema Gastrointestinal (Abdomen): Inspection/Auscultation: abdomen normal to inspection; abdomen not distended Percussion/Palpation: abdomen soft; abdomen nontender and no guarding Musculoskeletal: Extremities: extremities normal to inspection Neurologic: moves all extremities and awake Psychiatric: Orientation: alert and oriented x 3 Results & Data Vital Signs (Past 12 Hours) Vital Signs Temp Pulse Resp BP BP Pulse Ox 11/11/19 06:56 36.3 C L 73 19 138/64 97 11/10/19 23:35 36.8 C 75 16 126/76 96 PG Care Time/CCT Total # of Minutes Spent Total Time Spent with Patient: Total time spent is greater than 50% in coordination of care (as documented) at patient's floor/unit and/or counseling patient:
[2019-11-11] MEDS ORDERED: POLYETHYLENE (MIRALAX) 17 GM PACK PO STA (10:24)
--- NOTE | 2019-11-11 17:30 | Discharge Summary ---
Date of Service November 11, 2019 Principal Diagnosis Kidney stone Discharge Exam Constitutional WD/WN, vitals as above no acute distress Eyes normal visual horvath by confrontation, + anicteric sclerae and PERRL Neck trachea midline, no thyromegaly normal visual inspection and trachea midline Respiratory normal respiratory effort, lungs clear to auscultation Cardiovascular RRR, no murmur, no edema Rate/Rhythm: regular rate and regular rhythm Gastrointestinal (Abdomen) normal bowel sounds, soft, nontender, no hepatosplenomegaly Inspection/Auscultation: abdomen not distended Percussion/Palpation: abdomen soft; abdomen nontender Musculoskeletal Head/Neck/Chest: normocephalic and head atraumatic Skin no rashes, warm and dry Neurologic patellar DTR's 2+ bilat, sensation intact awake; not confused Speech / Cognition: normal speech Psychiatric A+Ox3, euthymic affect Orientation: oriented x 3 Affect: + flat affect Discharge Data Allergies Allergy/AdvReac Type Severity Reaction Status Date / Time oxycodone AdvReac Unknown "IT WINDS Verified 11/09/19 09:15 ME UP!"-CAN'T RELAX-ALSO INEFFECTIVE tramadol AdvReac nausea and Verified 11/09/19 09:15 vomiting Consultations 11/09/19 11:21 ED Decision to Admit Stat 11/09/19 12:30 Consult Case Management - Discharge Planning Routine 11/10/19 13:59 Consult Urology Routine Hospital Course (1) Right ureteral stone: Initially with 4mm obstructing calculus at R UVJ on imaging from 11/08/19 with moderate R hydroureteronephrosis. Discharged from ER but returned with worsening right sided abdominal pain. WBC elevated at 11.4k on admission, Cr 1.0 (baseline 0.8), BUN 15. Afebrile. * Passed the stone on her own. Seen by urology. Continue Flomax; no abx needed. Follow up in 3-4 weeks. (2) Hydroureteronephrosis: * As above (3) Intractable pain: * Secondary to nephrolithiasis as above (4) Cerebral palsy: * Stable * Held meloxicam and ibuprofen for now with other agents for pain control while inpatient (5) Hyperlipidemia: * Continued atorvastatin 10 mg QAM (6) Acid reflux: * Continued famotidine 20 mg BID (7) Hypertension: * Continued atenolol 25 mg QAM (8) DVT prophylaxis: * teds, heparin subq while inpatient Total Time Total Time Spent Total Time Spent (In Minutes): 35 Discharge Plan Discharge Items Patient Disposition: Home - Self-Care Reason For Visit: NEPHROLITHIASIS,INTRACTABLE PAIN Discharge Diagnosis: Kidney Stone Goals: You have been hospitalized for an acute medical problem. During your stay at [facility], we have made an effort to correct the problem that brought you to the hospital while keeping you as comfortable as possible. Medications were used to bring your condition under control and your discharge instructions will include directions for any medications you should take after leaving the hospital. Please make sure you see your Primary Care Provider as part of your follow up plan. Activity: Resume your previous activity Non-emergency contact: Primary Care Provider Call non-emergency contact if: you have any medication questions, your symptoms worsen and your pain is not controlled Follow-up/Referrals: Carlie Scott, [Primary Care Provider] - Diet: Carb Consistent or DM2 Addtl Attending Provider Instructions: You have been hospitalized for uncontrolled pain with a right sided kidney stone. Pain medication and fluids were provided during your stay, and you passed fragments of the stone. There is a stone analysis for what you passed this morning pending. Two urine specimens were sent while you were in the hospital, and so far, neither has grown any clear indication of infection. We are sending you out without any antibiotics because there is a risk of giving you antibiotics when you do not have an infection. If you develop fevers, chills, or other concerning symptoms, please call your PCP or urology doctors. You are being sent with a prescription for Flomax (tamsulosin) on discharge. Given resolution of your pain, you are being discharged home. It is recommended that you avoid ibuprofen/Aleve for the next week or two, as this can be damaging to your kidneys if you develop a stone that blocks your kidneys. You may continue to use the pain medication provided to you during the last admission as needed for breakthrough pain. If you develop symptoms of constipation, you may want to consider adding Miralax or Colace over the counter to help while you are taking pain medications. You should follow up with Urology in 2-3 weeks. Follow up with your primary care provider in the next 3-5 days. If you develop worsening pain, fever or chills, or for any other symptoms that are concerning for you, please return to the emergency room. It has been a pleasure being a part of the medical team providing for you during this hospital stay. Take care! Pending Studies at Discharge: Yes Studies:: Stone Analysis Stand-Alone Forms: My [facility], Work/School Release (Inpt) Medications and DC Order Prescriptions: Continued cetirizine [Zyrtec] 10 mg tablet 10 mg PO QAM RF: 0 citalopram 40 mg tablet 40 mg PO QAM Qty: 90 RF: 3 albuterol sulfate 90 mcg/actuation HFA aerosol inhaler 2 puff INHALATION Q4H PRN (Reason: Shortness Of Breath Or Wheezing) Qty: 18 RF: 1 mometasone 50 mcg/actuation spray,non-aerosol 2 spray INTRANASAL HS Qty: 17 RF: 5 hydrocodone-acetaminophen [[place]] 5-325 mg tablet 1 tab PO Q6H PRN (Reason: pain) Qty: 14 RF: 0 multivitamin Tablet 1 tab PO QAM RF: 0 atorvastatin [Lipitor] 10 mg Tablet 10 mg PO QAM RF: 0 famotidine [Pepcid] 20 mg tablet 20 mg PO BID RF: 0 atenolol 25 mg tablet 25 mg PO QAM RF: 0 fenofibrate micronized 134 mg capsule 134 mg PO QAM RF: 0 tamsulosin [Flomax] 0.4 mg capsule 0.4 mg PO QAM RF: 0 Discontinued ibuprofen [Motrin IB] 200 mg Tablet 200 mg PO TID PRN (Reason: Pain) RF: 0 meloxicam 15 mg tablet 15 mg PO DAILY PRN (Reason: pain) RF: 0 Discharge Orders: Discharge Order (Routine); Ordered 11/11/19 Ordered By: Gurdeep Gotti Admission Data Admit Date/Time: 11/09/19 11:25 Attending Provider: Gurdeep Gotti Admit Provider: Clari Walker Primary Care Provider: Carlie Scott Other Providers: Sunny Gotti I. ; Gurdeep Gotti Other Interventions: Discharge Summary Assessment (RN) Last Done: 11/11/19 12:09 DC Date/Time DO NOT enter until pt leaves facility: 11/11/19 13:09
[2019-11-14 16:26] LABS: Component 2 DNR; Source Kidney
== END 2019-11-11 13:09 | disposition home or self-care (01) | DRG 694 ==
LOC: ED 07:41 → 3W 11:25 → SUATTDRO 11:25 → 3W 12:13

== ENCOUNTER 2021-01-19 07:11 | Observation (INO) ==
--- NOTE | 2021-01-07 09:08 | PAT Medication Instructions ---
Medication Instructions Date of Service January 07, 2021 Home Medications Medication Instructions Recorded albuterol sulfate 90 mcg/actuation 2 puff INHALATION Q4H PRN #18 gm 08/14/19 aerosol inhaler citalopram 40 mg tablet 40 mg PO QAM #90 tab 03/02/20 fenofibrate micronized 134 mg 134 mg PO QAM #90 cap 07/24/20 capsule pantoprazole 20 mg tablet,delayed 20 mg PO QAM #30 tab 10/21/20 release atorvastatin 10 mg tablet 10 mg PO QAM #90 tab 12/02/20 multivitamin 1 tab PO QAM albuterol sulfate 90 mcg/actuation aerosol inhaler 2 puff INHALATION Q4H PRN cetirizine 10 mg tablet 10 mg PO QAM citalopram 40 mg tablet 40 mg PO QAM fenofibrate micronized 134 mg capsule 134 mg PO QAM acetaminophen 325 mg PO BID PRN albuterol sulfate 0.63 mg INHALATION Q4H PRN atenolol 25 mg PO QAM mometasone [Nasonex] 2 spray INTRANASAL HS pantoprazole 20 mg tablet,delayed release 20 mg PO QAM atorvastatin 10 mg tablet 10 mg PO QAM famotidine [Pepcid] 20 mg PO BID PRN STOP taking 48 hours before surgery fenofibrate micronized 134 mg capsule 134 mg PO QAM DO NOT take the morning of surgery multivitamin 1 tab PO QAM cetirizine 10 mg tablet 10 mg PO QAM famotidine [Pepcid] 20 mg PO BID PRN Take morning of surgery With a small sip of water, OTHERWISE NOTHING TO EAT OR DRINK AFTER MIDNIGHT: albuterol sulfate 90 mcg/actuation aerosol inhaler 2 puff INHALATION Q4H PRN (if needed) citalopram 40 mg tablet 40 mg PO QAM acetaminophen 325 mg PO BID PRN (okay to take up to 4 hours prior to surgery if needed) albuterol sulfate 0.63 mg INHALATION Q4H PRN (if needed) atenolol 25 mg PO QAM pantoprazole 20 mg tablet,delayed release 20 mg PO QAM atorvastatin 10 mg tablet 10 mg PO QAM famotidine [Pepcid] 20 mg PO BID PRN (if needed) Please bring rescue inhaler with you to hospital day of surgery Take evening before surgery albuterol sulfate 90 mcg/actuation aerosol inhaler 2 puff INHALATION Q4H PRN (if needed) acetaminophen 325 mg PO BID PRN (if needed) albuterol sulfate 0.63 mg INHALATION Q4H PRN (if needed) mometasone [Nasonex] 2 spray INTRANASAL HS famotidine [Pepcid] 20 mg PO BID PRN(if needed) Other Notes If you have any questions please call us at [phone] or [phone] or [phone] or [phone]
--- NOTE | 2021-01-08 08:31 | History & Physical Report ---
Date of Service January 08, 2021 date of surgery: 01/19/21 Procedure: Right Patellofemoral Arthroplasty Assessment & Plan (1) Patellofemoral arthritis of right knee: Further care discussed with patient and at this point in time has failed conservative measures and would like to proceed with a Right knee patellofemoral replacement at [facility] by Dr Shannon. discussed she will use a walker after her surgery, Plan on discharge will be home with home health physical therapy. DVT prophalaxis with TEDs, SCDs and will also place on aspirin 81 mg p.o. b.i.d. for a month postop. Patient will have follow up appointment in our office two weeks post op for staple/suture removal and re-evaluation. Patient otherwise has no other questions or concerns. History of Present Illness Chief Complaint: Right knee pain Primary Care Provider: Carlie Scott DO Suly is a 50 year old female with underlying cerebral palsy, presents with right knee pain, presents for pre-op evaluation prior to a Right knee patellofemoral replacement at [facility] by Dr Shannon. she complains of pain, decreased range of motion, and stiffness in her Right knee. Currently the patient states that the symptoms are moderate-severe. The pain is described as aching, sharp and throbbing. Her symptoms are aggravated by ascending stairs, daily activities, first steps while awake walking. Prior NSAIDs include IBU and Aleve. she also has sensitivity to Tramadol and Oxycodone. she has been treated with previous cortisone and visco injections in the past without much relief. she admits to sometimes using a cane for assistance with ambulation. Allergies Allergy/AdvReac Type Severity Reaction Status Date / Time oxycodone AdvReac Unknown "IT WINDS Verified 01/06/21 10:07 ME UP!"-CAN'T RELAX-ALSO INEFFECTIVE tramadol AdvReac nausea and Verified 01/06/21 10:07 vomiting Home Medications Medication Instructions Recorded Confirmed Type multivitamin 1 tab PO QAM 03/10/19 01/06/21 History albuterol sulfate 90 mcg/actuation 2 puff INHALATION Q4H PRN #18 gm 08/14/19 01/06/21 Rx aerosol inhaler cetirizine 10 mg tablet 10 mg PO QAM 08/14/19 01/06/21 History citalopram 40 mg tablet 40 mg PO QAM #90 tab 03/02/20 01/06/21 Rx fenofibrate micronized 134 mg 134 mg PO QAM #90 cap 07/24/20 01/06/21 Rx capsule acetaminophen 325 mg PO BID PRN 10/08/20 01/06/21 History albuterol sulfate 0.63 mg INHALATION Q4H PRN 10/08/20 01/06/21 History atenolol 25 mg PO QAM 10/08/20 01/06/21 History mometasone [Nasonex] 2 spray INTRANASAL HS 10/08/20 01/06/21 History pantoprazole 20 mg tablet,delayed 20 mg PO QAM #30 tab 10/21/20 01/06/21 Rx release atorvastatin 10 mg tablet 10 mg PO QAM #90 tab 12/02/20 01/06/21 Rx famotidine [Pepcid] 20 mg PO BID PRN 01/06/21 01/06/21 History Past Med/Surg History Medical History Acid reflux Anxiety Asthma well controlled, rarely uses inhaler. uses inhaler more with hot humid days. Cerebral palsy affects Left side, able to walk without difficulty. uses cane prn. affected speech. speech is clear, slow. Hearing difficulty History of esophageal dilatation History of kidney stones 2005 and 11/2019 - no surgical intervention Hydroureteronephrosis Hyperlipidemia Hypertension Osteoarthritis Patellofemoral arthritis Pneumonia ~2010, no problems recently. Sleep apnea Cpap Speech impairment clear speech, slow speech. Surgical History H/O varicose vein ligation History of colonoscopy History of esophagogastroduodenoscopy (EGD) S/P carpal tunnel release R wrist S/P cholecystectomy S/P lumbar fusion S/P tubal ligation Family History Father Coronary heart disease Myocardial infarction Hypertension Mother , Jun 2019 Sjogren's disease Diabetes Pacemaker Interstitial lung disease Brother Diabetes Other No family history of adverse response to anesthesia No family history of bleeding disorder Denies family history of Ovarian cancer Prostate cancer Breast cancer Lung cancer Colorectal cancer Social History Smoking Status: Never smoker Second Hand Exposure: Yes (as a childhood); Do You Dip or Chew Tobacco: No; Tobacco Cessation Education Requested by Patient: No Hx Alcohol Use: Yes Alcohol Intake Frequency: Monthly or Less Alcohol Intake Frequency Comment: social Hx Substance Use: No Preferred Language: Greenlandic Communication Ability: Effective Communication Ability Comment: slow speech. clear speech. Visual Impairment: No Limitations Hearing Ability: Hard of Hearing Grey Percher Required: No Beliefs That Will Affect Care: None marital status: Current Living Situation: Spouse current occupational status: employed current occupation: [employer] Other Information That Helps Us Care for You: No Feels Safe at Home: Yes Safety Concerns: Feels Safe At This Time Childhood Exposure to Second-Hand Smoke: Yes Diet Comment: regular during the past year weight has: remained stable Dental Care, Regularly: Yes Physical Activity Frequency: 3-4 Times per Week Physical Activity Frequency Comment: walking at week Seatbelt Use: always Sunscreen Use: Yes Assistive Devices: CPAP, Glasses, Hearing Aid - Bilateral and Nebulizer Assistive Devices Comment: uses cane prn Review of Systems Review of Systems: All systems reviewed & are unremarkable except as noted in HPI & below Constitutional: no fever, no chills and no sweats Respiratory: no cough and no dyspnea Cardiovascular: no chest pain, no dyspnea and no orthopnea Gastrointestinal: no abdominal pain, no nausea and no vomiting Musculoskeletal: as per Subjective / HPI Physical Exam Physical Exam: Ht: 5ft 7in WT: 95.2kg BP: 120/72 Constitutional: WD/WN, vitals as above no acute distress Respiratory: normal respiratory effort, lungs clear to auscultation no respiratory distress, no labored breathing and does not use accessory muscles Cardiovascular: RRR, no murmur, no edema Gastrointestinal (Abdomen): normal bowel sounds, soft, nontender, no hepatosplenomegaly Musculoskeletal: Knee: + knee abnormal to inspection (Right Knee), + effusion (+1 effusion), + limited ROM of knee (ROM 0/3/110), + knee ROM with crepitation (moderate crepitation with motion), + joint line tenderness (medial joint line) and + Joan's sign positive; no deformity, no skin erythema, no ecchymosis, no valgus laxity, no varus laxity, anterior drawer test negative, Shannan's sign negative and pivot shift test negative Results & Data Results & Data ([facility]) Diagnostic Findings Right knee xrays from 01/04/21 showing advanced DJD of the right patellofemoral joint with osteophyte formation, subchondral sclerosis, lateral tracking of the patella on sunrise view. Findings consistent with advanced DJD of the right patellofemoral joint.
--- NOTE | 2021-01-11 11:40 | Anesthesiology Consultation ---
Date of Service January 11, 2021 Assessment & Plan (1) Encounter for pre-operative examination: Per assessment on 01/11: Travel screen negative. No known COVID-19 positive contacts or current COVID-19 related symptoms. Patient received first vaccine (patient initially scheduled to have second vaccine DOS but will r/s to after surgery). Surgeon arranging preop COVID testing. Awaiting results. Chart Review Chart Review: Acceptable Risk for Surgery and Patient seen in Pre Admission Testing Teaching & Discussion Pre-Anesthesia Teaching/Discussion Notes: Instructed NPO after midnight before surgery,except medications with 15 cc of water. Medication instructions provided according to the PAT guidelines. History Surgery Operation Date: 01/19/21 07:15 Proposed Procedures p Right Patella Femoral Arthroplasty - Bacilio Shannon DO Height/Weight Height: 5 ft 7 in Weight: 96.3 kg Allergies Allergy/AdvReac Type Severity Reaction Status Date / Time oxycodone AdvReac Unknown hyperactivi Verified 01/11/21 11:38 ty tramadol AdvReac N/V Verified 01/11/21 11:38 Medications Home Medications Medication Instructions Recorded Confirmed Last Taken multivitamin 1 tab PO QAM 03/10/19 01/06/21 10/18/20 11:00 albuterol sulfate 90 mcg/actuation 2 puff INHALATION Q4H PRN #18 gm 08/14/19 01/06/21 Unknown aerosol inhaler cetirizine 10 mg tablet 10 mg PO QAM 08/14/19 01/06/21 10/18/20 11:00 citalopram 40 mg tablet 40 mg PO QAM #90 tab 03/02/20 01/06/21 10/18/20 11:00 fenofibrate micronized 134 mg 134 mg PO QAM #90 cap 07/24/20 01/06/21 10/18/20 11:00 capsule acetaminophen 325 mg PO BID PRN 10/08/20 01/06/21 Unknown albuterol sulfate 0.63 mg INHALATION Q4H PRN 10/08/20 01/06/21 Unknown atenolol 25 mg PO QAM 10/08/20 01/06/21 10/19/20 07:30 mometasone [Nasonex] 2 spray INTRANASAL HS 10/08/20 01/06/21 10/18/20 22:30 pantoprazole 20 mg tablet,delayed 20 mg PO QAM #30 tab 10/21/20 01/06/21 Unknown release atorvastatin 10 mg tablet 10 mg PO QAM #90 tab 12/02/20 01/06/21 Unknown famotidine [Pepcid] 20 mg PO BID PRN 01/06/21 01/06/21 Unknown Past Medical History Medical History Acid reflux controlled Anxiety Asthma well controlled Cerebral palsy Left sided deficits, slow speech, ambulates with cane PRN Hearing difficulty History of kidney stones 2005 and 11/2019 - no surgical intervention Hydroureteronephrosis Hyperlipidemia Hypertension Osteoarthritis Sleep apnea CPAP Exercise / Class Metabolic Activity III < 4 Walking/Shop/Light housework (uses cane PRN) Past Family History Family History Father Coronary heart disease Myocardial infarction Hypertension Mother , Jun 2019 Sjogren's disease Diabetes Pacemaker Interstitial lung disease Brother Diabetes Other No family history of adverse response to anesthesia No family history of bleeding disorder Denies family history of Ovarian cancer Prostate cancer Breast cancer Lung cancer Colorectal cancer Past Surgical History Surgical History H/O varicose vein ligation History of colonoscopy History of esophageal dilatation History of esophagogastroduodenoscopy (EGD) 10/19/20: MAC sedation at [facility] S/P carpal tunnel release Right S/P cholecystectomy S/P lumbar fusion S/P tubal ligation Past Anesthesia History No Hx of Anesthesia Complications and No Family Hx of Anesthesia Complications History of PONV No Hx of PONV and Hx of Motion Sickness (mild) Social History Smoking Status: Never smoker Do You Dip or Chew Tobacco: No Hx Alcohol Use: Yes alcohol intake frequency: holidays/special occasions only Hx Substance Use: No substance use type: does not use Review of Systems Patient denies chest pain, shortness of breath, fever, chills, cough, wheezing, palpitations. Physical Exam Vital Signs VITALS BP 128/82 P 66 TEMP 98.2 SP02 95%RA RESP 16 PHYSICAL Full neck and c-spine range of motion (+ cervicalgia r/t arthritis per pt). Full TMJ range of motion. TMD 3.5 finger breaths Mallampati Score 2 Dentition: missing lower front tooth/molar Lungs: clear throughout to auscultation Cardiac: regular rate and rhythm, no murmurs noted Spine: normal Carotid arteries: negative bruit Extremities: no edema Testing Laboratory Results 01/11/21 12:22 01/11/21 12: PT 10.4 Seconds (9.0-12.0) 01/11/21 12: INR 1.0 (0.9-1.1) 01/11/21 12: APTT 25.4 Seconds (21.0-31.0) 01/11/21 12:22 Hemoglobin A1c 5.7 % (4.5-5.6) H 01/11/21 12:22 Urine Color Yellow 01/11/21 12: Urine Appearance Clear (Clear) 01/11/21 12: Urine pH 7.5 (4.5-7.5) 01/11/21 12: Ur Specific [place] 1.008 (1.000-1.030) 01/11/21 12:22 Urine Protein Negative (Negative) 01/11/21 12:22 Urine Glucose (UA) Negative (Negative) 01/11/21 12:22 Urine Ketones Negative (Negative) 01/11/21 12:22 Urine Nitrite Negative (Negative) 01/11/21 12:22 Ur Leukocyte Esterase Negative (Negative) 01/11/21 12:22 Blood Type A Positive 01/11/21 12:22 Antibody Screen NEGATIVE 01/11/21 12:22 Electrocardiogram Date: 09/25/20 Normal sinus rhythm at 63 bpm. Minimal voltage criteria for LVH, may be normal variant. No significant change compared to 11/08/2019 per computer systems software architect review. Chest X-Ray Date: 09/25/20 Findings: + NAD
[2021-01-11 13:20] LABS: Basophils # (auto) 0.03 K/uL (0-0.2); Basophils % (auto) 0.5 %; Eosinophils # (auto) 0.05 K/uL (0-0.5); Eosinophils % (auto) 0.8 %; Hematocrit (blood only) 39.2 % (37-47); Hemoglobin 13.2 g/dL (12.0-16.0); Immature Granulocytes # (auto) 0.01 K/uL (0.00-0.02); Immature Granulocytes % (auto) 0.2 %; Lymphocytes # (auto) 1.88 K/uL (1.2-3.4); Lymphocytes % (auto) 31.5 %; Mean Corpuscular Hemoglobin 28.4 pg (25-34); Mean Corpuscular Hgb Conc 33.7 g/dL (32-36); Mean Corpuscular Volume 84.5 fL (80-100); Mean Platelet Volume 9.8 fL (7.4-10.4); Monocytes # (auto) 0.31 K/uL (0.11-0.59); Monocytes % (auto) 5.2 %; Neutrophils # (auto) 3.68 K/uL (1.4-6.5); Neutrophils % (auto) 61.8 %; Platelet Count 349 K/uL (130-400); RDW Coefficient of Variation 13.4 % (11.5-14.5); RDW Standard Deviation 40.9 fL (36.4-46.3); Red Blood Count 4.64 M/uL (4.2-5.4); White Blood Count 5.96 K/uL (4.8-10.8)
[2021-01-11 13:21] LABS: Appearance Urine Clear (Clear); Bilirubin Urine Negative (Negative); Blood Urine Negative (Negative); Color Urine Yellow; Glucose Urine UA Negative (Negative); Ketones Urine Negative (Negative); Leukocyte Esterase Urine Negative (Negative); Nitrite Urine Negative (Negative); Protein Urine Negative (Negative); Specific Gravity Urine 1.008 (1.000-1.030); Urobilinogen Urine Negative (Negative); pH Urine 7.5 (4.5-7.5)
[2021-01-11 13:36] LABS: Estimated Average Glucose 117 mg/dl; Hemoglobin A1C 5.7 % (4.5-5.6); Partial Thromboplastin Time 25.4 Seconds (21.0-31.0); Prothrombin Time 10.4 Seconds (9.0-12.0)
[2021-01-11 15:32] LABS: Albumin Level 3.8 gm/dl (3.4-5.0); BUN Creatinine Ratio 18.4 (10-20); Calcium 9.5 mg/dl (8.5-10.1); Creatinine Clr Calc Pharmacy 115.3 ml/min; Est GFR (African American) 116.6; Est GFR (Non-African American) 100.6
[~2021-01-19 07:11] MED LIST changes: +ACETAMINOPHEN 500 MG TAB PO SCH; -ATOR10TA82 PO; -CETI10TA84 PO; -CITA40TA4 PO; +CeleBREX 200 MG CAP PO SCH; +EPINEPHrine INJ 1 MG/ML AMP ONE; +FAMOTIDINE 20 MG TAB PO SCH; -FENO134C PO; +GABAPENTIN 600 MG DOSE PO SCH; +LR 15ML/HR IV SCH; +METOCLOPRAMIDE HCL 10 MG TABLET PO SCH; -MOME6000 NAE; +ROPIVACAINE 0.5% 5 MG/ML 30 ML VIAL ONE; +ROPIVACAINE 0.5% HCL/PF 150 MG, BUPIVACAINE 0.75% MPF 20 ML, EPINEPHrine 30MG/30ML (OR ... INFIL SCH; -TNR25 PO; +TRANEXAMIC ACID 1,000 MG **IV Intra-op IV SCH; +TRANEXAMIC ACID 1,000 MG **IV Pre-op IV SCH; -VNTHFA/IN INH; +ceFAZolin 2000MG 2,000 MG/15 ML SYR IV SCH; +oxyCODONE HCL 10 MG TABCR (OxyCONTIN) PO SCH
[2021-01-19] MEDS ORDERED: PHENYLEPHRINE 100MCG/ML 5ML SYR ONE (07:48)
[2021-01-19] MEDS ORDERED: PROPOFOL IV EMULSION 10 MG/ML 20 ML VIAL IV ONE ×2 (07:48→11:21)
[2021-01-19] MEDS ORDERED: LIDOCAINE HCL 2% 2 ML VIAL/AMP(20MG/ML) INFIL ONE (07:48)
[2021-01-19] MEDS ORDERED: ePHEDrine sulfate 50 MG/ML SYR ONE (07:48)
[2021-01-19] MEDS ORDERED: fentaNYL citrate 100 MCG/2 ML VIAL ONE (07:49)
[2021-01-19] MEDS ORDERED: MIDAZOLAM HCL 1 MG/ML 2ML VIAL ONE (07:49)
[2021-01-19] MEDS ORDERED: LABETALOL HCL IV 5 MG/ML 20ML IV PRN (08:10)
[2021-01-19] MEDS ORDERED: ONDANSETRON INJ 2 MG/ML 2 ML VIAL IV PRN ×2 (08:10→13:14)
[2021-01-19] MEDS ORDERED: ePHEDrine sulfate 50 MG/ML AMP IV PRN (08:10)
[2021-01-19] MEDS ORDERED: PHENYLEPHRINE 100MCG/ML 5ML SYR IV PRN (08:10)
[2021-01-19] MEDS ORDERED: ATROPINE SULFATE 0.1 MG/ML 10ML SYR IV PRN (08:10)
[2021-01-19] MEDS ORDERED: fentaNYL citrate 100 MCG/2 ML VIAL IV PRN (08:10)
--- NOTE | 2021-01-19 08:49 | History & Physical Bridge Note ---
Date of Service January 19, 2021 History & Physical Bridge Note I have examined the patient, reviewed the History & Physical and in the interval since the performance of the History & Physical I have noted the following changes of clinical significance: no changes noted
[2021-01-19] MEDS ORDERED: BUPIVACAINE 0.5 % 5 MG/1 ML PF 10ML VIAL ONE (08:59)
[2021-01-19] MEDS ORDERED: ORTHO JOINT ANESTHETIC ONE (09:17)
[2021-01-19] MEDS ORDERED: BACITRACIN INJ 50,000 UNIT VIAL ONE (09:17)
--- NOTE | 2021-01-19 11:40 | Operative Report ---
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 Mio STEVENS Estimated Blood Loss 5 Findings Consistent with Post-Op Diagnosis Patient presents with severe DJD of the patellofemoral joint medial lateral compartments are relatively uninvolved patient has isolated patellofemoral DJD with eburnated bone in the patellofemoral joint lateral tracking patella marginal osteophytes of the patella as well as the superior trochlea Specimens Bone and cartilage Drains Medium bore Hemovac Anesthesia Type MAC Spinal Regional Complications none Disposition Accompanied Patient To Recovery: No Disposition: Recovery Room Indications Patient presents with severe end-stage patellofemoral DJD no response to conservative management patient is attempted previous corticosteroid injections Visco supplementations activity modification patellofemoral bracing physical therapy patient has advanced the patellofemoral isolated DJD Description of Procedure Initiation of regional anesthesia with sedation the right lower extremity soc ially prepped draped in sterile fashion for surgery this type utilizing #10 blade incision made over the region of the extensor mechanism of the knee dissection carried down to the region of the medial parapatellar retinaculum the medial parapatellar retinaculum was opened special attention was paid to protect the meniscal coronal ligaments around the the medial meniscus of the patella was subluxed lateralward's the patellofemoral joint was evaluated market eburnated bone was noted medial lateral menisci visualized and probed noted to be intact no tearing or attenuation was noted at the anterior posterior crucial ligaments were visualized and probed noted to be intact in the medial lateral compartment otherwise involved patellofemoral compartment compartment was eburnated [id number] subsequently utilizing the [employer] patellofemoral arthroplasty guidance the anterior femoral cut was made for anterior referencing the wound was irrigated the appropriate trial was placed utilizing progressively larger reamers the trochlear notch was reamed to accommodate the patellofemoral arthroplasty trial excellent left contour was noted such that no patellofemoral maltracking was noted socially patella was cut and sized to a size 32 trials were placed the patellofemoral joint was noted to track in excellent position subsequently after having thoroughly irrigated debridement lavage the final components were brought to the field and cemented with the patellofemoral component for second secondly the patella the medial parapatellar retinaculum closed #1 Vicryl over medium bore Hemovac subcu was closed with 2-0 Vicryl skin was closed with a running subcu suture and a V lock the sterile compressive dressing was placed the patient is taken recovery stable condition operative port dictated by Shiva please note a joint mix was injected into the periosteum as well as the subcutaneous tissues. RODNEY Little was necessary prepping draping retraction wound closure of deep fascia subcu and skin was necessary for the case I attest to the content of the Intraoperative Record and any orders documented therein. Any exceptions are noted below.
--- NOTE | 2021-01-19 12:46 | Anesthesiology Progress Note ---
Date of Service January 19, 2021 Anesthesia Post Procedure Vital Signs Vital Signs: Temp Pulse Pulse Resp BP BP Pulse Ox 01/19/21 12:35 95 H 15 142/90 H 97 01/19/21 12:25 103 H 15 150/81 H 98 01/19/21 12:19 36.7 C 99 H 18 142/101 H 96 01/19/21 08:15 36.9 C 74 18 138/99 98 Pain Intensity Right Knee: Pain Intensity: 1 Transfer of Care Handoff Completed per policy Notes Mental Status: alert / awake / arousable Patient Amnestic to Procedure: Yes Nausea / Vomiting: adequately controlled Pain: adequately controlled Airway Patency, RR, SpO2: stable & adequate BP & HR: stable & adequate Hydration State: stable & adequate Neuraxial Anesthesia: was administered and sensory block is resolving Anesthetic Complications: no major complications apparent and Pt Satisfied with anesthetic care
--- NOTE | 2021-01-19 13:01 | XRay Report ---
RIGHT KNEE 2 VIEWS History: Right knee arthroplasty. Degenerative arthritis. Postop. FINDINGS: The patient is status post a right patellofemoral arthroplasty. The hardware is intact. No fracture or dislocation. Surgical drains are in place. IMPRESSION: Right patellofemoral arthroplasty. No evidence for hardware complication. ACT 112: Negative or not required by law. Electronically signed by: Pernell Matthews M.D. 01/19/2021 1:00 PM
[2021-01-19] MEDS ORDERED: METOCLOPRAMIDE HCL INJ 5 MG/ML 2 ML VIAL IV PRN (13:14)
[2021-01-19] MEDS ORDERED: diphenhydrAMINE Capsule 25 MG CAP PO PRN (13:14)
[2021-01-19] MEDS ORDERED: NALOXONE HCL 0.4 MG/1 ML VIAL/CARP IV PRN (13:14)
[2021-01-19] MEDS ORDERED: bisacodyL 10 MG SUPP PR PRN (13:14)
[2021-01-19] MEDS ORDERED: ALBUTEROL 0.083% NEBU SOLN 3 ML VIAL INH PRN (13:14)
[2021-01-19] MEDS ORDERED: ALBUTEROL HFA 8 GM INHALER INH PRN (13:14)
[2021-01-19] MEDS ORDERED: oxyCODONE HCL IR 5 MG TAB (IMMEDIATE RELEASE) PO PRN (13:14)
[2021-01-19] MEDS ORDERED: HYDROmorphone INJ 1 MG/ML SYRINGE IV PRN (13:14)
[2021-01-19] MEDS ORDERED: MAGNESIUM HYDROXIDE SUSP 30 ML UDC PO PRN (13:14)
[2021-01-19] MEDS: KETOROLAC 30 MG/ML VIAL IV SCH ×3 (14:03→20:44)
[2021-01-19] MEDS: SODIUM CHLORIDE 0.9% 1000ML 1,000 ML IV SCH ×2 (14:03→23:43)
--- NOTE | 2021-01-19 16:30 | Consultation ---
Date of Consultation January 19, 2021 Assessment & Plan (1) Patellofemoral arthritis of right knee: management per ortho plans to go home with therapy encouraged her to take deep breaths with incentive spirometer DVT prophylaxis per ortho (2) Asthma: no wheezing on exam, breathing comfortably (3) Sensorineural hearing loss of both ears: at baseline, need to speak loudly (4) Sleep apnea: (5) Acid reflux: Pepcid BID PRN (6) Anxiety: mood stable (7) Cerebral palsy: has chronic left sided weakness, slow speech, hearing difficulties ambulates with cane check labs in the morning will sign off at this time History of Present Illness Requesting Physician: Dr. Shannon Reason for Consultation: medical management Attending Physician: Bacilio Shannon DO History of Present Illness 50 yo female with history of cerebral palsy presents for right patellar arthroplasty. Pain well controlled, breathing well, no chest pain after surgery. Vitals stable. As far as medical history, she has anxiety, asthma, GERD, hearing difficulties and issues stemming from her CP, left sided weakness and speech issues. Allergies Allergy/AdvReac Type Severity Reaction Status Date / Time oxycodone AdvReac Unknown hyperactivi Verified 01/19/21 07:46 ty tramadol AdvReac N/V Verified 01/19/21 07:46 Home Medications Medication Instructions Recorded Confirmed Type multivitamin 1 tab PO QAM 03/10/19 01/19/21 History albuterol sulfate 90 mcg/actuation 2 puff INHALATION Q4H PRN #18 gm 08/14/19 01/19/21 Rx aerosol inhaler cetirizine 10 mg tablet 10 mg PO QAM 08/14/19 01/19/21 History citalopram 40 mg tablet 40 mg PO QAM #90 tab 03/02/20 01/19/21 Rx fenofibrate micronized 134 mg 134 mg PO QAM #90 cap 07/24/20 01/19/21 Rx capsule albuterol sulfate 0.63 mg INHALATION Q4H PRN 10/08/20 01/13/21 History atenolol 25 mg PO QAM 10/08/20 01/19/21 History mometasone [Nasonex] 2 spray INTRANASAL HS 10/08/20 01/19/21 History pantoprazole 20 mg tablet,delayed 20 mg PO QAM #30 tab 10/21/20 01/19/21 Rx release atorvastatin 10 mg tablet 10 mg PO QAM #90 tab 12/02/20 01/19/21 Rx famotidine [Pepcid] 20 mg PO BID PRN 01/06/21 01/19/21 History acetaminophen 1,000 mg PO Q8 14 Days #84 tab 01/20/21 Rx aspirin 81 mg PO BID 30 Days #60 tab 01/20/21 Rx cefadroxil 500 mg PO BID #14 cap 01/20/21 Rx celecoxib [Celebrex] 200 mg PO BID 14 Days #28 cap 01/20/21 Rx polyethylene glycol 3350 [Miralax] 17 g PO DAILY PRN #5 ea 01/20/21 Rx Patient History Medical History Acid reflux controlled Anxiety Asthma well controlled Cerebral palsy Left sided deficits, slow speech, ambulates with cane PRN Hearing difficulty History of kidney stones 2005 and 11/2019 - no surgical intervention Hydroureteronephrosis Hyperlipidemia Hypertension Obesity Osteoarthritis Sleep apnea CPAP Surgical History H/O varicose vein ligation History of colonoscopy History of esophageal dilatation History of esophagogastroduodenoscopy (EGD) 10/19/20: MAC sedation at [facility] S/P carpal tunnel release Right S/P cholecystectomy S/P lumbar fusion S/P tubal ligation Family History Father Coronary heart disease Myocardial infarction Hypertension Mother , Jun 2019 Sjogren's disease Diabetes Pacemaker Interstitial lung disease Brother Diabetes Other No family history of adverse response to anesthesia No family history of bleeding disorder Denies family history of Ovarian cancer Prostate cancer Breast cancer Lung cancer Colorectal cancer Social History Smoking Status: Never smoker Second Hand Exposure: Yes (as a childhood); Do You Dip or Chew Tobacco: No; Tobacco Cessation Education Requested by Patient: No Hx Alcohol Use: Yes Alcohol Intake Frequency: Monthly or Less Alcohol Intake Frequency Comment: social Hx Substance Use: No Preferred Language: [place] Communication Ability: Effective Communication Ability Comment: slow speech. clear speech. 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[employer] Furnishings Required: No Beliefs That Will Affect Care: None marital status: Current Living Situation: Spouse current occupational status: employed current occupation: [employer] day[employer] Other Information That Helps Us Care for You: No Feels Safe at Home: Yes Safety Concerns: Feels Safe At This Time Childhood Exposure to Second-Hand Smoke: Yes Diet Comment: regular during the past year weight has: remained stable Dental Care, Regularly: Yes Physical Activity Frequency: 3-4 Times per Week Physical Activity Frequency Comment: walking at week Seatbelt Use: always Sunscreen Use: Yes Assistive Devices: Glasses and Walker Assistive Devices Comment: uses cane prn Review of Systems 2 Review of Systems: All systems reviewed & are unremarkable except as noted in Subjective Constitutional: no fever, no chills, no sweats, no fatigue and no weakness Respiratory: no cough and no dyspnea Cardiovascular: no chest pain and no edema Gastrointestinal: no abdominal pain, no nausea, no vomiting, no constipation and no diarrhea/loose stools Musculoskeletal: + joint pain (knee pain) Physical Exam Constitutional: WD/WN, vitals as above no acute distress Eyes: PERRL, conjunctivae normal, anicteric sclerae ENMT: external ear and nose normal, oropharynx normal Ears: + hearing impairment Neck: trachea midline, no thyromegaly Respiratory: normal respiratory effort, lungs clear to auscultation Cardiovascular: RRR, no murmur, no edema Gastrointestinal (Abdomen): normal bowel sounds, soft, nontender, no hepatosplenomegaly Musculoskeletal: Head/Neck/Chest: normocephalic, head atraumatic and neck supple Extremities: + abnormal strength (left side weakness); no cyanosis, no clubbing and no petechiae Skin: no rashes, warm and dry Neurologic: patellar DTR's 2+ bilat, sensation intact and PERRL, EOMI, accommodation nl, no face palsy, no dysarthria Psychiatric: A+Ox3, euthymic affect Lymphatic: no cervical or axillary lymphadenopathy Results & Data ([facility]) Vital Signs (Past 12 Hours) Vital Signs Temp Pulse Pulse Pulse Resp BP BP 01/19/21 16:01 36.2 C L 88 17 127/84 01/19/21 15:04 36.2 C L 89 17 120/78 01/19/21 13:56 36.3 C L 91 H 16 127/79 01/19/21 13:30 36.4 C L 92 H 16 134/85 01/19/21 13:00 36.5 C 97 H 16 152/91 H 01/19/21 12:45 36.5 C 94 H 15 147/96 H 01/19/21 12:35 95 H 15 142/90 H 01/19/21 12:25 103 H 15 150/81 H 01/19/21 12:19 36.7 C 99 H 18 142/101 H 01/19/21 08:15 36.9 C 74 18 138/99 Pulse Ox 01/19/21 16:01 96 01/19/21 15:04 97 01/19/21 13:56 99 01/19/21 13:30 99 01/19/21 13:00 91 01/19/21 12:45 97 01/19/21 12:35 97 01/19/21 12:25 98 01/19/21 12:19 96 01/19/21 08:15 98 Medications Administered Current Inpatient Medications Acetaminophen (Acetaminophen 500 Mg Tab) 1,000 mg PO Q8 [facility] Stop: 02/18/21 15:59 Albuterol (Albuterol 0.083% Nebu Soln 3 Ml Vial) 0.63 mg INH Q4H PRN PRN Reason: sob Stop: 02/18/21 13:13 Albuterol (Albuterol Hfa 8 Gm Inhaler) 2 puffs INH Q4H PRN PRN Reason: Shortness Of Breath Or Wheezing Stop: 02/18/21 13:13 Aspirin (Aspirin 81 Mg Ectab) 81 mg PO BID [facility] Stop: 02/18/21 20:59 Atenolol (Atenolol 25 Mg Tablet) 25 mg PO QAM [facility] Stop: 02/19/21 08:59 Atorvastatin Calcium (Atorvastatin 10 Mg Tab) 10 mg PO QAM [facility] Stop: 02/19/21 08:59 Bisacodyl (Bisacodyl 10 Mg Supp) 10 mg TN DAILY PRN PRN Reason: Constipation Stop: 02/18/21 13:13 Celecoxib (Celebrex 200 Mg Cap) 200 mg PO BID [facility]ARA Stop: 02/19/21 20:59 Cetirizine HCl (Cetirizine Hcl 10 Mg Tablet) 10 mg PO QAM [facility] Stop: 02/19/21 08:59 Citalopram Hydrobromide (Citalopram 40 Mg Tab) 40 mg PO QAM [facility] Stop: 02/19/21 08:59 Diphenhydramine HCl (Diphenhydramine Capsule 25 Mg Cap) 25 mg PO Q8H PRN PRN Reason: Itching Stop: 02/18/21 13:13 Docusate Sodium (Docusate Sodium 100 Mg Cap) 100 mg PO BID [facility] Stop: 02/18/21 20:59 Fluticasone Propionate (Fluticasone Propionate Na Spr 16 Gm Btl) 2 sprays SHARIF HS [facility] Stop: 02/18/21 20:59 Hydromorphone HCl (Hydromorphone Inj 1 Mg/Ml Syringe) 1 mg IV Q4H PRN PRN Reason: Pain Stop: 02/02/21 13:13 Sodium Chloride (Nss 1000ml) 1,000 mls @ 100 mls/hr IV .Q10H [facility] Stop: 01/20/21 06:00 Last Admin: 01/19/21 14:03 Dose: 100 mls/hr Documented by: Cefazolin Sodium (Ancef 2000mg) 2,000 mg in 15 mls @ 3.75 mls/min IV Q8H [facility]; Protocol Stop: 01/20/21 02:03 Ketorolac Tromethamine (Ketorolac 30 Mg/Ml Vial) 30 mg IV Q6H [facility] Stop: 01/20/21 08:01 Last Admin: 01/19/21 14:03 Dose: Not Given Documented by: Magnesium Hydroxide (Magnesium Hydroxide Susp 30 Ml Udc) 30 ml PO Q6H PRN PRN Reason: Constipation Stop: 02/18/21 13:13 Metoclopramide HCl (Metoclopramide Hcl Inj 5 Mg/Ml 2 Ml Vial) 10 mg IV Q6H PRN PRN Reason: Nausea And Vomiting Stop: 02/18/21 13:13 Miscellaneous (Fenofibrate 134 Mg: Order Awaiting Action) 1 ea N/A QS [facility] Stop: 02/19/21 07:59 Multivitamins (Multivitamin Tab) 1 tab PO QAM [facility] Stop: 02/19/21 08:59 Naloxone HCl (Naloxone Hcl 0.4 Mg/1 Ml Vial/Carp) 0.1 mg IV Q5M PRN PRN Reason: Oversedation/Resp Depression Stop: 02/18/21 13:13 Ondansetron HCl (Ondansetron Inj 2 Mg/Ml 2 Ml Vial) 4 mg IV Q6H PRN PRN Reason: Nausea And Vomiting Stop: 02/18/21 13:13 Oxycodone HCl (Oxycodone Hcl Ir 5 Mg Tab (Immediate Release)) 5 - 10 mg PO Q4H PRN PRN Reason: Pain or Pre PT Stop: 02/02/21 13:13 Sennosides (Senna 8.6 Mg Tab) 17.2 mg PO HS [facility] Stop: 02/18/21 20:59 PG Care Time/CCT Total # of Minutes Spent Total Time Spent with Patient: Total time spent is greater than 50% in coordination of care (as documented) at patient's floor/unit and/or counseling patient: Coding Level of Care Code 84507 Inpt Consult Level 2 Diagnoses Patellofemoral arthritis of right knee M17.11 Asthma J45.909 Sensorineural hearing loss of both ears H90.3 Sleep apnea G47.30 Acid reflux K21.9 Anxiety F41.9 Cerebral palsy G80.9
[2021-01-19] MEDS: ACETAMINOPHEN 500 MG TAB PO SCH ×2 (16:52→22:02)
[2021-01-19] MEDS: ceFAZolin 2000MG 2,000 MG/15 ML SYR IV SCH (16:56)
[2021-01-19] MEDS: DOCUSATE SODIUM 100 MG CAP PO SCH (20:37)
[2021-01-19] MEDS: FLUTICASONE PROPIONATE NA SPR 16 GM BTL NAE SCH (20:37)
[2021-01-19] MEDS: ASPIRIN 81 MG ECTAB PO SCH (20:38)
[2021-01-19] MEDS: SENNA 8.6 MG TAB PO SCH (20:39)
[2021-01-20] MEDS: ceFAZolin 2000MG 2,000 MG/15 ML SYR IV SCH (01:06)
[2021-01-20] MEDS: KETOROLAC 30 MG/ML VIAL IV SCH ×2 (01:33→09:37)
[2021-01-20] MEDS: ACETAMINOPHEN 500 MG TAB PO SCH (06:10)
[2021-01-20 07:04] LABS: Hematocrit (blood only) 34.3 % (37-47); Hemoglobin 11.4 g/dL (12.0-16.0); Mean Corpuscular Hemoglobin 28.1 pg (25-34); Mean Corpuscular Hgb Conc 33.2 g/dL (32-36); Mean Corpuscular Volume 84.5 fL (80-100); Platelet Count 247 K/uL (130-400); RDW Coefficient of Variation 13.1 % (11.5-14.5); RDW Standard Deviation 40.1 fL (36.4-46.3); Red Blood Count 4.06 M/uL (4.2-5.4); White Blood Count 10.25 K/uL (4.8-10.8)
--- NOTE | 2021-01-20 07:21 | Orthopedic Progress Note ---
Date of Service January 20, 2021 Assessment & Plan (1) Right knee DJD: Postop day 1 status post right total knee arthroplasty. PT/OT protocols. Weightbearing as tolerated. DVT prophylaxis-aspirin p.o. twice daily, SCDs, JORDY sandra. Pain management as written. Labs pending DC planning-home health services upon discharge. Admission and Anticipated Discharge Date Admission Date: January 19, 2021 Subjective Postop day 1 Patient awake and alert lying in bed. States she is having a little bit of pain this morning. No other complaints. Denies shortness of breath, chest pain, lightheadedness. Physical Exam Physical Exam: Dressings are clean, dry, and intact. Calves are soft and nontender. Neurovascular is intact. Toes are mobile. She has good dorsiflexion and plantarflexion of her right foot. Hemovac drainage was 100 mL from the previous shift. Results & Data ([facility]) Vital Signs (Past 12 Hours) Vital Signs Temp Pulse Pulse Resp BP Pulse Ox 01/20/21 07:16 36.8 C 78 16 138/77 92 01/20/21 03:00 36.7 C 83 20 128/75 94 01/19/21 23:00 36.8 C 85 18 126/78 93
[2021-01-20 07:37] LABS: BUN Creatinine Ratio 15.2 (10-20); Calcium 8.4 mg/dl (8.5-10.1); Creatinine Clr Calc Pharmacy 126.5 ml/min; Est GFR (African American) 120.2; Est GFR (Non-African American) 103.7; Potassium 3.7 mmol/L (3.5-5.1)
[2021-01-20] MEDS: ASPIRIN 81 MG ECTAB PO SCH ×2 (09:37→21:18)
[2021-01-20] MEDS: ATENOLOL 25 MG TABLET PO SCH (09:37)
[2021-01-20] MEDS: CETIRIZINE HCL 10 MG TABLET PO SCH (09:38)
[2021-01-20] MEDS: DOCUSATE SODIUM 100 MG CAP PO SCH ×2 (09:38→21:18)
[2021-01-20] MEDS: MULTIVITAMIN TAB PO SCH (09:38)
[2021-01-20] MEDS: ATORVASTATIN 10 MG TAB PO SCH (09:38)
[2021-01-20] MEDS: CITALOPRAM 40 MG TAB PO SCH (09:38)
[2021-01-20] MEDS ORDERED: KETOROLAC 30 MG/ML VIAL IV PRN (11:26)
[2021-01-20] MEDS ORDERED: HYDROCODONE/ACETAMOPHEN 5/325MG TAB PO PRN (11:26)
[2021-01-20] MEDS ORDERED: MoRPHine SULFATE 4 MG/ML 1 ML CARP\\VIAL IV PRN (11:29)
[2021-01-20] MEDS ORDERED: CeleBREX 200 MG CAP PO SCH (21:00)
[2021-01-20] MEDS: SENNA 8.6 MG TAB PO SCH (21:17)
[2021-01-20] MEDS: FLUTICASONE PROPIONATE NA SPR 16 GM BTL NAE SCH (21:19)
[2021-01-20] MEDS: FAMOTIDINE 20 MG TAB PO PRN (21:22)
[2021-01-21] MEDS: HYDROCODONE/ACETAMOPHEN 5/325MG TAB PO PRN ×2 (05:06→11:36)
[2021-01-21] MEDS: CITALOPRAM 40 MG TAB PO SCH (09:31)
[2021-01-21] MEDS: DOCUSATE SODIUM 100 MG CAP PO SCH (09:31)
[2021-01-21] MEDS: ASPIRIN 81 MG ECTAB PO SCH (09:32)
[2021-01-21] MEDS: MULTIVITAMIN TAB PO SCH (09:32)
[2021-01-21] MEDS: ATORVASTATIN 10 MG TAB PO SCH (09:32)
[2021-01-21] MEDS: FAMOTIDINE 20 MG TAB PO PRN (09:34)
[2021-01-21] MEDS: CETIRIZINE HCL 10 MG TABLET PO SCH (09:35)
[2021-01-21] MEDS: ATENOLOL 25 MG TABLET PO SCH (09:35)
--- NOTE | 2021-01-21 10:26 | Orthopedic Progress Note ---
Date of Service January 21, 2021 Assessment & Plan (1) Right knee DJD: Postop day 2 status post right total knee arthroplasty. PT/OT protocols. Weightbearing as tolerated. DVT prophylaxis-aspirin p.o. twice daily, SCDs, JORDY sandra. Pain management as written. DC planning-home health services upon discharge. Progressing with PT. Plan for discharge to home today. Admission and Anticipated Discharge Date Admission Date: January 19, 2021 Subjective Postop day 2 Patient is sitting up in a chair at the bedside. She is awake and alert. She states that she is feeling well good today and her pain is controlled. No complaints at this time. She is hoping to go home today. Physical Exam Physical Exam: Incision is clean, dry, and intact. Mild erythema around the incision itself, calves are soft nontender. Neurovascular intact. Toes are mobile. Results & Data ([facility]) Vital Signs (Past 12 Hours) Vital Signs Temp Pulse Resp BP Pulse Ox 01/21/21 07:09 36.8 C 76 18 137/92 95
--- NOTE | 2021-01-21 12:44 | Discharge Summary ---
Date of Service date of discharge: January 21, 2021 date of admission: 01-19-21 Admission HPI Per Admitting Provider Suly is a 50 year old female with underlying cerebral palsy, presents with right knee pain, presents for pre-op evaluation prior to a Right knee patellofemoral replacement at [facility] by Dr Shannon. she complains of pain, decreased range of motion, and stiffness in her Right knee. Currently the patient states that the symptoms are moderate-severe. The pain is described as aching, sharp and throbbing. Her symptoms are aggravated by ascending stairs, daily activities, first steps while awake walking. Prior NSAIDs include IBU and Aleve. she also has sensitivity to Tramadol and Oxycodone. she has been treated with previous cortisone and visco injections in the past without much relief. she admits to sometimes using a cane for assistance with ambulation. Principal Diagnosis right knee patellofemoral arthritis Discharge Exam Constitutional WD/WN, vitals as above no acute distress Musculoskeletal Right Knee: NVDI, calf SNT, negative suzy sign. DP palpable, able to wiggle toes/ankle movement without difficulty. dressing clean dry and intact. expected post-operative bruising noted. Discharge Data Allergies Allergy/AdvReac Type Severity Reaction Status Date / Time oxycodone AdvReac Unknown hyperactivi Verified 01/19/21 07:46 ty tramadol AdvReac N/V Verified 01/19/21 07:46 Consultations 01/14/21 16:32 Consult Hospitalist Routine 01/19/21 13:14 Consult Case Management - Discharge Planning Routine Procedures Performed Operation Date: 01/19/21 09:55 Actual Procedures p Right Patella Femoral Arthroplasty(Right) - Bacilio Shannon DO Ordered Studies 01/19/21 05:00 US - OR guided needle placemen Routine Hospital Course (1) Right knee DJD: Postop day 2 status post right total knee arthroplasty. PT/OT protocols. Weightbearing as tolerated. DVT prophylaxis-aspirin p.o. twice daily, SCDsJORDY. Pain management as written. DC planning-home health services upon discharge. Progressing with PT. Plan for discharge to home today. Laboratory Results WBC 10.25 K/uL (4.8-10.8) 01/20/21 06:54 RBC 4.06 M/uL (4.2-5.4) L 01/20/21 06:54 Hgb 11.4 g/dL (12.0-16.0) L 01/20/21 06:54 Hct 34.3 % (37-47) L 01/20/21 06:54 MCV 84.5 fL (80-100) 01/20/21 06:54 MCH 28.1 pg (25-34) 01/20/21 06:54 MCHC 33.2 g/dL (32-36) 01/20/21 06:54 RDW Std Deviation 40.1 fL (36.4-46.3) 01/20/21 06:54 RDW Coeff of Susan 13.1 % (11.5-14.5) 01/20/21 06:54 Plt Count 247 K/uL (130-400) 01/20/21 06:54 MPV 9.0 fL (7.4-10.4) 01/20/21 06:54 Immature Gran % (Auto) 0.2 % 01/11/21 12:22 Neut % (Auto) 61.8 % 01/11/21 12:22 Lymph % (Auto) 31.5 % 01/11/21 12:22 Greenlee % (Auto) 5.2 % 01/11/21 12:22 Eos % (Auto) 0.8 % 01/11/21 12:22 Baso % (Auto) 0.5 % 01/11/21 12:22 Neut # (Auto) 3.68 K/uL (1.4-6.5) 01/11/21 12:22 Lymph # (Auto) 1.88 K/uL (1.2-3.4) 01/11/21 12:22 Greenlee # (Auto) 0.31 K/uL (0.11-0.59) 01/11/21 12:22 Eos # (Auto) 0.05 K/uL (0-0.5) 01/11/21 12:22 Baso # (Auto) 0.03 K/uL (0-0.2) 01/11/21 12:22 Immature Gran # (Auto) 0.01 K/uL (0.00-0.02) 01/11/21 12:22 PT 10.4 Seconds (9.0-12.0) 01/11/21 12:22 INR 1.0 (0.9-1.1) 01/11/21 12:22 APTT 25.4 Seconds (21.0-31.0) 01/11/21 12:22 PTT Ratio 1.0 01/11/21 12:22 Sodium 143 mmol/L (136-145) 01/20/21 06:54 Potassium 3.7 mmol/L (3.5-5.1) 01/20/21 06:54 Chloride 111 mmol/L (98-107) H 01/20/21 06:54 Carbon Dioxide 26 mmol/L (21-32) 01/20/21 06:54 Anion Gap 6.0 (3-11) 01/20/21 06:54 BUN 9 mg/dl (7-18) 01/20/21 06:54 Creatinine 0.62 mg/dl (0.6-1.2) 01/20/21 06:54 Est Cr Clr Drug Dosing 126.5 ml/min 01/20/21 06:54 Est GFR ( Amer) 120.2 01/20/21 06:54 Est GFR (Non-Af Amer) 103.7 01/20/21 06:54 BUN/Creatinine Ratio 15.2 (10-20) 01/20/21 06:54 Glucose 113 mg/dl (70-99) H 01/20/21 06:54 Estimat Average Glucose 117 mg/dl 01/11/21 12:22 Hemoglobin A1c 5.7 % (4.5-5.6) H 01/11/21 12:22 Calcium 8.4 mg/dl (8.5-10.1) L 01/20/21 06:54 Albumin 3.8 gm/dl (3.4-5.0) 01/11/21 12:22 Urine Color Yellow 01/11/21 12:22 Urine Appearance Clear (Clear) 01/11/21 12:22 Urine pH 7.5 (4.5-7.5) 01/11/21 12:22 Ur Specific [place] 1.008 (1.000-1.030) 01/11/21 12:22 Urine Protein Negative (Negative) 01/11/21 12:22 Urine Glucose (UA) Negative (Negative) 01/11/21 12:22 Urine Ketones Negative (Negative) 01/11/21 12:22 Urine Blood Negative (Negative) 01/11/21 12:22 Urine Nitrite Negative (Negative) 01/11/21 12:22 Urine Bilirubin Negative (Negative) 01/11/21 12:22 Urine Urobilinogen Negative (Negative) 01/11/21 12:22 Ur Leukocyte Esterase Negative (Negative) 01/11/21 12:22 Blood Type A Positive 01/11/21 12:22 Antibody Screen NEGATIVE 01/11/21 12:22 Vital Signs Temp 36.8 C 01/21/21 12:07 Pulse 76 01/21/21 12:07 Resp 18 01/21/21 12:07 BP 137/92 01/21/21 12:07 Pulse Ox 95 01/21/21 12:07 Intake & Output 01/20/21 01/21/21 01/21/21 18:59 06:59 18:59 Intake Total 1115 / 1595 480 / 1595 Output Total 125 / 125 Balance 990 / 1470 480 / 1470 Weight 96.3 kg Intake: IV 755 / 755 Nss 1000ML 1,000 ml @ 100 mls/ 755 / 755 hr IV .Q10H TAMARA Rx#:[id number] Oral 360 / 840 480 / 840 Output: Drain Output 125 / 125 Right Knee Hemovac 125 / 125 Other: # Unmeasured Voids 1 1 Total Time Total Time Spent Total Time Spent (In Minutes): 20 Total Time Includes: Examination of the Patient, Discharge Planning and Medication Reconciliation Discharge Plan Discharge Items Patient Disposition: Home - Home Health Services Reason For Visit: Osteoarthritis, Right Knee Discharge Diagnosis: Right patellofemoral joint replacement Activity: Per Instructions section Weightbearing: Right weightbearing Weightbearing Comment: WBAT with walker Non-emergency contact: Surgeon Call non-emergency contact if: you have any medication questions, your temperature is above 101, your wound has increased redness, your wound has increased drainage and your wound pain has increased Follow-up/Referrals: Carlie Scott DO [Primary Care Provider] - Diet: Regular Addtl Attending Provider Instructions: ACTIVITY RECOMMENDATIONS: SELF CARE INSTRUCTIONS AFTER PATELLOFEMORAL JOINT REPLACEMENT A. You may need to continue a physical therapy program after discharge from the hospital. There are several options available to you. Your doctor will assist you in selecting the best one for you. 1. An out-patient facility 2 to 3 times a week for therapy or home therapy. 2. Continue working on all exercises taught to you in the hospital. Your goals should be to increase bending of your knee to 90 degrees and beyond and to fully straighten your knee. B. You may progress at your own pace from walking with a walker or crutches to a cane; then to no assistive devices. C. Make walking a part of your daily routine. Be up as much as comfortable with rest periods throughout the day. Rest with leg elevation is very important. Use the ice wrap frequently for the first 3-4 weeks. D. There are no restrictions on activities. You may ride in a car, shop, participate in information lead and all social activities. E. Wear the long elastic stockings (JORDY hose) 20 hours a day for 2 weeks after surgery. They can be removed several times a day for laundering and for a bath. F. You may shower, no tub baths until cleared by your doctor. SPECIAL CARE INSTRUCTIONS: VERY IMPORTANT TO READ AND REVIEW A. There are a few signs you need to watch for after you are home. Call [facility] if you notice any of the followin. Increased severe knee pain. Some pain is expected especially when you exercise. 2. Increased swelling in your leg or knee; pain or swelling of the calf muscle in either lower leg. 3. Any fluid drainage from the incision. 4. Shortness of breath or chest pain. B. Please call [facility] at if you have any concerns or questions about your operation or recovery. The doctor or his nurse will return your call promptly. C. You must take antibiotics before dental work, bladder, bowel or other surgery. Your doctor will provide you with a permanent care to carry describing this precaution. IMPORTANT: * REMEMBER TO TAKE ASPIRIN, 81 MG, TWICE DAILY FOR 4 WEEKS UNLESS OTHERWISE DIRECTED. THIS IS YOUR BLOOD THINNER. * HIGH RISK PATIENTS MAY BE PRESCRIBED A STRONGER BLOOD THINNER. THIS WILL BE PROVIDED AT DISCHARGE. * CALL IF INCREASED PAIN, REDNESS, DRAINAGE OR FEVER GREATER THAT 101. * WEAR JORDY HOSE 20 HOURS PER DAY FOR 2 WEEKS. * DERMABOND Prineo- This is a mesh tape dressing that is covered with glue. It should remain in place until the incision is properly healed, usually 10-14 days. This dressing is designed to naturally slough off. You may trim the excess mesh tape as it peels off. Incision may be briefly wet in a shower. Dry immediately by blotting with a clean, dry towel. Do not bath or swim until instructed by your doctor. Do not scratch, rub, or pick at the dressing. Do not apply any topical ointments or lotions until dressing is completely removed and/or instructed by your doctor. There may be a small piece of suture material at one end of your incision. Do not pull or trim this. If it is bothersome or catching on clothing, you may cover it with a band-aid. IF INCISION IS LEAKING THROUGH DRESSING, CALL THE OFFICE . FOLLOW UP VISIT: If appointment is not already scheduled: Please call [facility] to make a follow-up appointment for 2 weeks after your surgery at . Stand-Alone Forms: My [facility] [employer], Opioid Pain Management, Smoking Cessation Medications and DC Order Prescriptions: New acetaminophen 500 mg Tablet 1,000 mg PO Q8 14 Days Qty: 84 RF: 0 aspirin 81 mg Tablet,Delayed Release (Dr/Ec) 81 mg PO BID 30 Days Qty: 60 RF: 0 celecoxib [Celebrex] 200 mg Capsule 200 mg PO BID 14 Days Qty: 28 RF: 0 cefadroxil 500 mg capsule 500 mg PO BID Qty: 14 RF: 0 polyethylene glycol 3350 [Miralax] 17 gram powder in packet 17 g PO DAILY PRN (Reason: constipation) Qty: 5 RF: 0 Continued citalopram 40 mg tablet 40 mg PO QAM Qty: 90 RF: 3 fenofibrate micronized 134 mg capsule 134 mg PO QAM Qty: 90 RF: 1 pantoprazole [Protonix] 20 mg tablet,delayed release (DR/EC) 20 mg PO QAM Qty: 30 RF: 5 atorvastatin [Lipitor] 10 mg tablet 10 mg PO QAM Qty: 90 RF: 3 cetirizine [Zyrtec] 10 mg tablet 10 mg PO QAM RF: 0 albuterol sulfate 90 mcg/actuation HFA aerosol inhaler 2 puff INHALATION Q4H PRN (Reason: Shortness Of Breath Or Wheezing) Qty: 18 RF: 1 multivitamin Tablet 1 tab PO QAM RF: 0 atenolol 25 mg tablet 25 mg PO QAM RF: 0 mometasone [Nasonex] 50 mcg/actuation spray,non-aerosol 2 spray INTRANASAL HS RF: 0 albuterol sulfate 0.63 mg/3 mL Solution For Nebulization 0.63 mg INHALATION Q4H PRN (Reason: sob) RF: 0 famotidine [Pepcid] 20 mg tablet 20 mg PO BID PRN (Reason: Heartburn) RF: 0 Discontinued acetaminophen 325 mg Tablet 650 mg PO BID PRN (Reason: Pain) RF: 0 Discharge Orders: Discharge Order (Routine); Ordered 01/21/21 Ordered By: Ishaan Valentin/Other Patient Handouts: DVT Post Op Prevention Admission Data Admit Date/Time: 01/19/21 12:31 Attending Provider: Bacilio Shannon Admit Provider: Bacilio Shannon Primary Care Provider: Carlie Scott Other Providers: Nick Ribera [facility] Other Interventions: Discharge Summary Assessment (RN) Last Done: 01/21/21 12:07
== END 2021-01-21 14:34 | disposition home health service (06) ==
LOC: 3E 07:11 → ASU 07:11

== ENCOUNTER 2023-06-20 13:51 | Inpatient (IN) ==
--- NOTE | 2023-06-20 13:59 | ED Triage Note ---
Date of Service June 20, 2023 History of Present Illness This patient was briefly evaluated while in triage. An abbreviated physical exam was performed. This patient is a 53-year-old Female who presents to the ED for evaluation of worsening left elbow pain, swelling, and redness. No fevers or discharge from the elbow. She was seen in the ER on 06/16/23 with blood work and CT imaging of the left elbow done at that time. Diagnosed with cellulitis and given Rocephin and Augmentin. Does not feel like it is getting any better with the Augmentin. Has an appt with [facility] tomorrow, but doesn't feel like she can wait that long. Sometimes feels dizzy from the pain. Physical Exam GENERAL: Non-toxic and in no acute distress. HEENT: Pupils equal. No obvious scleral icterus. HEART: Regular rate and rhythm. LUNGS: Clear to auscultation. No accessory muscle use. NEURO: Alert and oriented. No obvious neurological deficits on quick neuro exam. MUSCULOSKELETAL: Edema and erythema to the left olecranon bursa extending to the mid posterior forearm and mildly to the humerus. There is a scab present to the center of the olecranon bursa. No discharge or significant fluctuance. Tender to palpation over the olecranon bursa and olecranon process. Mildly tender to palpation of the left forearm. Pain with any ROM of the left elbow. Neurovascularly intact. Initial orders for labs and / or imaging were placed and patient was placed in the waiting area until a bed is available. Please see further documentation for the full ED course.
[2023-06-20 14:53] LABS: Basophils # (auto) 0.04 K/uL (0-0.2); Basophils % (auto) 0.6 %; Eosinophils # (auto) 0.13 K/uL (0-0.50); Eosinophils % (auto) 1.9 %; Hematocrit (blood only) 40.3 % (37.0-47.0); Hemoglobin 13.4 g/dl (12.0-16.0); Immature Granulocytes # (auto) 0.02 K/uL (0.01-0.20); Immature Granulocytes % (auto) 0.3 %; Lymphocytes # (auto) 1.93 K/uL (1.2-3.4); Lymphocytes % (auto) 28.1 %; Mean Corpuscular Hemoglobin 28.2 pg (25.0-34.0); Mean Corpuscular Hgb Conc 33.3 g/dL (32.0-36.0); Mean Corpuscular Volume 84.7 fL (80.0-100.0); Mean Platelet Volume 9.3 fL (9.4-12.4); Monocytes # (auto) 0.45 K/uL (0.11-0.59); Monocytes % (auto) 6.5 %; Neutrophils # (auto) 4.31 K/uL (1.40-6.50); Neutrophils % (auto) 62.6 %; Platelet Count 263 K/uL (130-400); RDW Coefficient of Variation 12.4 % (11.5-14.5); RDW Standard Deviation 37.7 fL (36.4-46.3); Red Blood Count 4.76 M/uL (4.20-5.40); White Blood Count 6.88 K/ul (4.8-10.8)
[2023-06-20 14:56] LABS: Appearance Urine Clear (Clear); Bilirubin Urine Negative (Negative); Blood Urine Negative (Negative); Color Urine Yellow; Glucose Urine UA Negative (Negative); Ketones Urine Negative (Negative); Leukocyte Esterase Urine Negative (Negative); Nitrite Urine Negative (Negative); Protein Urine Negative (Negative); Specific Gravity Urine 1.007 (1.000-1.030); Urobilinogen Urine Negative (Negative); pH Urine 5.5 (4.5-7.5)
[2023-06-20 15:09] LABS: Albumin Globulin Ratio 1.3 (0.9-2); Albumin Level 4.4 gm/dl (3.4-5.0); BUN Creatinine Ratio 26.1 (10-20); Bilirubin,Total 0.4 mg/dl (0.2-1.0); C Reactive Protein 2.03 mg/dl (0-0.5); Calcium 9.8 mg/dl (8.6-10.3); Creatinine Clr Calc Pharmacy 107.5 ml/min; Est GFR (African American) 113.6 ml/min; Globulin 3.5 gm/dl (2.5-4.0); Potassium 3.8 mmol/L (3.5-5.1); Total Protein 7.9 gm/dl (6.0-8.3)
[2023-06-20] MEDS ORDERED: VANCOMYCIN CONSULT ACTIVE PRN ×2 (15:46→20:29)
[2023-06-20] MEDS ORDERED: VANCOMYCIN HCL 1,750 MG in SODIUM CHLORIDE 0.9% 500 ML IV ONE (15:46)
[2023-06-20] MEDS ORDERED: CEFEPIME 2,000 MG/20 ML VIAL IV STA (15:46)
--- NOTE | 2023-06-20 16:05 | Emergency Department Note ---
Impression & Plan Failure of outpatient treatment, Olecranon bursitis of left elbow, Cellulitis of left forearm ED Provider Note Name: LINDSAY RINCON Age: 53 Sex: F Arrives Via: Walk-In Informant: Patient, ED Provider: Celso Hightower MD Chief Complaint: Infection of arm Impression: As per impression above Medical Decision Making: Pleasant 53-year-old female with diagnosis of a left olecranon bursitis few days ago on antibiotics which has been gradually worsening. She now notes she gets lightheaded with standing. She states the rash on her arm has spread significantly. She does have some fluctuance. Laboratory work-up prior to my evaluation reveals elevated ESR and CRP from baseline. She has now been on antibiotics for several days and apparently this is worsening. The setting of failure of outpatient therapy it is not unreasonable to start IV antibiotics and hospitalize the patient. Patient and are comfortable with this plan. Patient is not septic at this time she is breathing comfortably and she is no distress. I do not feel this is consistent with a vascular issue. There is no evidence of the joint itself being infected at this time Triage/Nursing Notes reviewed by Me Differentials: Bursitis, septic bursitis, septic joint, cellulitis, necrotizing fasciitis, allergic reaction, failure of outpatient therapy, absc ess, sepsis amongst other pathologies considered Vital Signs: reviewed and remarkable for no significant abnormalities Interventions: Vancomycin IV, cefepime IV Labs:Reviewed and remarkable for elevated ESR and CRP beyond baseline. All other labs reviewed by me Imaging:X-ray of the left elbow as per my interpretation there is no fracture nor joint effusion. There is swelling over the olecranon bursa. Radiologist confirmed finding Consults:[place] hospitalist Plan: Disposition:Hospitalization. Condition: Good History of Present Illness:53-year-old female arrives for evaluation of left elbow swelling. Patient has been on antibiotic for the last 5 days due to cellulitis of the left elbow. Since then the elbow has increasingly swelled and she is having increasing pain and warmth. This afternoon she was going to get lightheaded and feverish. No nausea or vomiting but has not had an appetite. She states she just does not feel very well. No specific pain in the elbow joint itself its more over the bursa. She was to see orthopedics tomorrow but states she feels too unwell. She is currently on Augmentin. Past History:See Below Home Medications:See Below Allergies:See Below Vitals:Blood Pressure: 137/90, Pulse 95, RR 18, T 36.6C, O2 95% on RA Physical Exam: GENERAL: Patient is unwell appearing and in minimal distress. NECK: No masses appreciated, nomeningismus, trachea is midline. RESPIRATORY: No dyspnea. Clear to auscultation and equal bilaterally. No wheeze, no rhonchi. CARDIOVASCULAR: Regular rate and rhythm.No murmurs, rubs, gallops appreciated. GASTROINTESTINAL: Abdomen soft, non-tender, no peritonitis. EXTREMITIES: Normal motion all extremities, no cyanosis, no edema. Patient has a large fluctuance of the left ulnar bursa with surrounding cellulitis and warmth. No pain with range of motion or evidence of septic elbow joint. Excellent distal pulses and neurovascular intact NEUROLOGIC: Alert and oriented, no focal neurologic deficit appreciated SKIN: No rash, no jaundice, no diaphoresis. PSYCH: Appropriate GCS: 15 ED Course: Times/Reassessments: Patient agreeable to hospitalization she is comfortable stable Celso Hightower MD Past Med/Surg History Medical History Acid reflux Anxiety Asthma Cerebral palsy Hearing difficulty History of kidney stones Hydroureteronephrosis Hyperlipidemia Hypertension Obesity Osteoarthritis Patellofemoral arthritis of right knee Prediabetes Sleep apnea Surgical History H/O varicose vein ligation History of esophageal dilatation History of esophagogastroduodenoscopy (EGD) History of partial knee replacement (01/2021) History of suburethral sling procedure (09/2022) S/P carpal tunnel release S/P cholecystectomy S/P lumbar fusion S/P tubal ligation 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) Family History Father Coronary heart disease Myocardial infarction Hypertension Mother Sjogren's disease Diabetes Pacemaker Interstitial lung disease Brother Diabetes Other No family history of adverse response to anesthesia No family history of bleeding disorder Denies family history of Ovarian cancer Prostate cancer Breast cancer Lung cancer Colorectal cancer Social History (Reviewed 06/16/23 @ 09:35 by TIAGO Scales Smoking Status: Never smoker Second Hand Exposure: No; Do You Dip or Chew Tobacco: No; Hx Alcohol Use: Yes Alcohol type: wine Alcohol Intake Frequency: Monthly or Less Hx Substance Use: No Preferred Language: Bengali Communication Ability: Effective Communication Ability Comment: slow speech. clear speech. Visual Impairment: No Limitations Hearing Ability: Use of Hearing Aid [employer] Instructor Required: No Beliefs That Will Affect Care: None marital status: Current Living Situation: Spouse current occupational status: employed current occupation: [employer] Feels Safe at Home: Yes Safety Concerns: Feels Safe At This Time Childhood Exposure to Second-Hand Smoke: Yes Diet: regular Diet Comment: regular caffeine: Yes during the past year weight has: remained stable Dental Care, Regularly: Yes Physical Activity Frequency: 5-6 Times per Week Physical Activity Frequency Comment: walking Seatbelt Use: always Sunscreen Use: Yes Assistive Devices: Glasses and Hearing Aid - Bilateral Assistive Devices Comment: hearing aids are at home Allergies Allergies Allergy/AdvReac Type Severity Reaction Status Date / Time oxycodone AdvReac Intermediate hyperactivi Verified 06/20/23 18:56 ty tramadol AdvReac Intermediate N/V Verified 06/20/23 18:56 Home Meds Home Medications Medication Instructions Recorded Confirmed multivitamin 1 tab PO QAM 03/10/19 06/20/23 cetirizine 10 mg tablet (Zyrtec) 10 mg PO QAM 08/14/19 06/20/23 famotidine 20 mg tablet (Pepcid) 20 mg PO BID PRN Heartburn 01/06/21 06/20/23 oxybutynin chloride 5 mg 5 mg PO DAILY 10/17/22 06/20/23 tablet,extended release 24 hr celecoxib 200 mg capsule (Celebrex) 200 mg PO BID PRN Pain 04/21/23 06/20/23 Previous Rx's Medication Instructions Recorded albuterol sulfate 0.63 mg/3 mL 0.63 mg (3 mL) inhalation Q4H PRN 06/02/21 solution for nebulization sob #90 mL CPAP Supplies #1 ea 09/22/21 atorvastatin 10 mg tablet (Lipitor) 10 mg PO QAM #90 tabs 11/10/22 citalopram 40 mg tablet 40 mg PO QAM #90 tabs 01/10/23 ondansetron 4 mg disintegrating 4 mg PO Q6 PRN nausea and vomiting 01/24/23 tablet #14 tabs albuterol sulfate 90 mcg/actuation 2 puff inhalation Q4H PRN 02/13/23 aerosol inhaler Shortness Of Breath Or Wheezing #18 grams atenolol 25 mg tablet 25 mg PO QAM #90 tabs 02/15/23 fenofibrate micronized 134 mg 134 mg PO QAM #90 caps 02/15/23 capsule mometasone 50 mcg/actuation nasal 2 spray intranasal HS #17 grams 03/28/23 spray pantoprazole 20 mg tablet,delayed 20 mg PO QAM #30 tabs 04/10/23 release (Protonix) amoxicillin 875 mg-potassium 1 tab PO BID #20 tabs 06/16/23 clavulanate 125 mg tablet Results & Data (ED) Vital Signs Vital Signs - 24 hr 06/20/23 13:55 06/20/23 18:24 Temperature 36.6 C Temperature Source Oral Pulse Rate 95 H Respiratory Rate 18 16 Respiratory Effort / Characteristics Non-Labored Spontaneous Respiratory Depth Normal Respiratory Pattern Regular Blood Pressure 137/90 Blood Pressure [Right Arm] 144/89 H Blood Pressure Mean 105 Blood Pressure Mean [Right Arm] 107 Blood Pressure Position Sitting Pulse Oximetry 95 98 Oxygen Delivery Method Room Air Room Air Sepsis Recent Fever Within 48 Hours Yes Sepsis New/Unexplained Change in Mental Status No Sepsis Action Taken by Nursing No Action Required Laboratory Data 06/20/23 14:29 06/20/23 14:29 Lab Results 06/20/23 06/20/23 06/20/23 Range/Units 14:29 14:29 14:29 WBC 6.88 (4.8-10.8) K/ul RBC 4.76 (4.20-5.40) M/uL Hgb 13.4 (12.0-16.0) g/dl Hct 40.3 (37.0-47.0) % MCV 84.7 (80.0-100.0) fL MCH 28.2 (25.0-34.0) pg MCHC 33.3 (32.0-36.0) g/dL RDW Std Deviation 37.7 (36.4-46.3) fL RDW Coeff of Susan 12.4 (11.5-14.5) % Plt Count 263 (130-400) K/uL MPV 9.3 L (9.4-12.4) fL Immature Gran % (Auto) 0.3 % Neut % (Auto) 62.6 % Lymph % (Auto) 28.1 % [place] % (Auto) 6.5 % Eos % (Auto) 1.9 % Baso % (Auto) 0.6 % Neut # (Auto) 4.31 (1.40-6.50) K/uL Lymph # (Auto) 1.93 (1.2-3.4) K/uL [place] # (Auto) 0.45 (0.11-0.59) K/uL Eos # (Auto) 0.13 (0-0.50) K/uL Baso # (Auto) 0.04 (0-0.2) K/uL Immature Gran # (Auto) 0.02 (0.01-0.20) K/uL ESR 58 H (0-30) mm/hr Sodium 140 (136-145) mmol/L Potassium 3.8 (3.5-5.1) mmol/L Chloride 103 (98-107) mmol/L Carbon Dioxide 30 (21-32) mmol/L Anion Gap 7 (3-11) BUN 18 (6-23) mg/dl Creatinine 0.69 (0.6-1.2) mg/dl Est Cr Clr Drug Dosing 107.5 ml/min Est GFR ( Amer) 113.6 ml/min Est GFR (Non-Af Amer) 98.0 ml/min BUN/Creatinine Ratio 26.1 H (10-20) Glucose 108 H (70-99(Fasting)) mg/dl Lactate (0.4-2.0) mmol/L Uric Acid 5.8 (2.6-7.2) mg/dl Calcium 9.8 (8.6-10.3) mg/dl Total Bilirubin 0.4 (0.2-1.0) mg/dl AST 17 (13-39) U/L ALT 14 (7-52) U/L Alkaline Phosphatase 94 (34-104) U/L C-Reactive Protein 2.03 H (0-0.5) mg/dl Total Protein 7.9 (6.0-8.3) gm/dl Albumin 4.4 (3.4-5.0) gm/dl Globulin 3.5 (2.5-4.0) gm/dl Albumin/Globulin Ratio 1.3 (0.9-2) Procalcitonin (0-0.5) ng/ml Urine Color Urine Appearance (Clear) Urine pH (4.5-7.5) Ur Specific [place] (1.000-1.030) Urine Protein (Negative) Urine Glucose (UA) (Negative) Urine Ketones (Negative) Urine Blood (Negative) Urine Nitrite (Negative) Urine Bilirubin (Negative) Urine Urobilinogen (Negative) Ur Leukocyte Esterase (Negative) 06/20/23 06/20/23 06/20/23 Range/Units 14:29 14:29 14:29 WBC (4.8-10.8) K/ul RBC (4.20-5.40) M/uL Hgb (12.0-16.0) g/dl Hct (37.0-47.0) % MCV (80.0-100.0) fL MCH (25.0-34.0) pg MCHC (32.0-36.0) g/dL RDW Std Deviation (36.4-46.3) fL RDW Coeff of Susan (11.5-14.5) % Plt Count (130-400) K/uL MPV (9.4-12.4) fL Immature Gran % (Auto) % Neut % (Auto) % Lymph % (Auto) % [place] % (Auto) % Eos % (Auto) % Baso % (Auto) % Neut # (Auto) (1.40-6.50) K/uL Lymph # (Auto) (1.2-3.4) K/uL [place] # (Auto) (0.11-0.59) K/uL Eos # (Auto) (0-0.50) K/uL Baso # (Auto) (0-0.2) K/uL Immature Gran # (Auto) (0.01-0.20) K/uL ESR (0-30) mm/hr Sodium (136-145) mmol/L Potassium (3.5-5.1) mmol/L Chloride (98-107) mmol/L Carbon Dioxide (21-32) mmol/L Anion Gap (3-11) BUN (6-23) mg/dl Creatinine (0.6-1.2) mg/dl Est Cr Clr Drug Dosing ml/min Est GFR ( Amer) ml/min Est GFR (Non-Af Amer) ml/min BUN/Creatinine Ratio (10-20) Glucose (70-99(Fasting)) mg/dl Lactate 1.0 (0.4-2.0) mmol/L Uric Acid (2.6-7.2) mg/dl Calcium (8.6-10.3) mg/dl Total Bilirubin (0.2-1.0) mg/dl AST (13-39) U/L ALT (7-52) U/L Alkaline Phosphatase (34-104) U/L C-Reactive Protein (0-0.5) mg/dl Total Protein (6.0-8.3) gm/dl Albumin (3.4-5.0) gm/dl Globulin (2.5-4.0) gm/dl Albumin/Globulin Ratio (0.9-2) Procalcitonin < 0.05 (0-0.5) ng/ml Urine Color Yellow Urine Appearance Clear (Clear) Urine pH 5.5 (4.5-7.5) Ur Specific [place] 1.007 (1.000-1.030) Urine Protein Negative (Negative) Urine Glucose (UA) Negative (Negative) Urine Ketones Negative (Negative) Urine Blood Negative (Negative) Urine Nitrite Negative (Negative) Urine Bilirubin Negative (Negative) Urine Urobilinogen Negative (Negative) Ur Leukocyte Esterase Negative (Negative) Administered Medications Acetaminophen (Acetaminophen 325 Mg Tab) 650 mg PO Q4H PRN PRN Reason: pain/fever Stop: 07/20/23 20:28 Last Admin: 06/20/23 21:41 Dose: 650 mg Documented By: REMA Fluticasone Propionate (Fluticasone Propionate Na Spr 16 Gm Btl) 2 sprays NA HS TAMARA Stop: 07/20/23 20:59 Last Admin: 06/20/23 21:31 Dose: 2 sprays Documented By: REMA Vancomycin HCl 1,250 mg/ (Sodium Chloride) 275 mls @ 200 mls/hr IV Q12H TAMARA Stop: 06/27/23 20:59 Last Admin: 06/20/23 21:34 Dose: 200 mls/hr Documented By: REMA Discontinued Medications Vancomycin HCl 1,750 mg/ (Sodium Chloride) 535 mls @ 200 mls/hr IV NOW ONE Stop: 06/20/23 18:26 Last Admin: 06/20/23 16:16 Dose: 200 mls/hr Documented By: IAN Cefepime HCl (Maxipime) 2,000 mg in 20 mls @ 5 mls/min IV NOW STA; Protocol Stop: 06/20/23 15:49 Last Admin: 06/20/23 16:12 Dose: 5 mls/min Documented By: IAN Imaging Data Radiologist's Impression: Elbow X-Ray 06/20/23 13:59 XR elbow LT min 3V routine HISTORY: 53 years-old Female Continued pain/redness/swelling left elbow acute left elbow pain COMPARISON: Left forearm CT 06/16/2023 TECHNIQUE: 3 views of the left elbow FINDINGS: Mild marginal spurring of the elbow redemonstrated. No acute fracture, dislocation or osseous erosion. Subcentimeter bone fragment adjacent to the coronoid process again noted. Moderate soft tissue swelling at the olecranon process. IMPRESSION: 1. No acute fracture or dislocation. 2. No joint effusion. 3. Moderate soft tissue swelling of the olecranon soft tissue redemonstrated suggestive of bursitis. Superimposed infectious etiology should be excluded on a clinical basis. Findings are similar to the 06/16/2023 CT examination. ACT 112: Negative or not required by law. The above report was generated using voice recognition software. It may contain grammatical, syntax or spelling errors. Electronically signed by: Shashi Dimas M.D. 06/20/2023 4:07 PM Discharge Plan Visit Data Chief Complaint: Hand Injury/Pain Stated Complaint: HAND AND ELBOW PAIN ED Provider: Celso Hightower Discharge Problem: Failure of outpatient treatment, Olecranon bursitis of left elbow, Cellulitis of left forearm Patient Disposition: Admitted As Inpatient Discharge Instructions Interventions: ED Discharge Assessment Last Done: 06/20/23 20:16
--- NOTE | 2023-06-20 16:09 | XRay Report ---
XR elbow LT min 3V routine HISTORY: 53 years-old Female Continued pain/redness/swelling left elbow acute left elbow pain COMPARISON: Left forearm CT 06/16/2023 TECHNIQUE: 3 views of the left elbow FINDINGS: Mild marginal spurring of the elbow redemonstrated. No acute fracture, dislocation or osseous erosion . Subcentimeter bone fragment adjacent to the coronoid process again noted. Moderate soft tissue swel ling at the olecranon process. IMPRESSION: 1. No acute fracture or dislocation. 2. No joint effusion. 3. Moderate soft tissue swelling of the olecranon soft tissue redemonstrated suggestive of bursitis. Superimposed infectious etiology should be excluded on a clinical basis. Findings are similar to the 06/16/2023 CT examination. ACT 112: Negative or not required by law. The above report was generated using voice recognition software. It may contain grammatical, syntax o r spelling errors. Electronically signed by: Shashi Dimas M.D. 06/20/2023 4:07 PM
--- NOTE | 2023-06-20 19:04 | History & Physical Report ---
Date of Service June 20, 2023 Assessment & Plan (1) Bursitis of left elbow: (2) Cellulitis: (3) Urinary incontinence: (4) Asthma: (5) Acid reflux: (6) Anxiety: (7) Hyperlipidemia: Plan Bursitis of left elbow/cellulitis- Continue vancomycin and cefepime begun in ED Check a uric acid level, as there is a family history of gout Follow clinical examination Hypertension- Continue atenolol Hyperlipidemia- Continue atorvastatin and fenofibrate Asthma- Continue inhalers and nebulizers as outpatient History of Present Illness Chief Complaint: The patient presents to the emergency department with worsening left elbow redness, swelling, warmth and stiffness over the past several days Primary Care Provider: Carlie Scott DO The patient is a 53-year-old female with a past medical history including urinary incontinence, asthma, allergic rhinitis, bilateral sensorineural hearing loss, gastritis, prediabetes, sleep apnea, GERD, hyperlipidemia, hypertension, cerebral palsy, anxiety and kidney stones. Patient reports that she felt a pop in her left elbow about a week ago, since that time its been gradually getting a little bit more uncomfortable, and now over the past 24 hours she has had significantly worsening symptoms. Allergies Allergy/AdvReac Type Severity Reaction Status Date / Time oxycodone AdvReac Intermediate hyperactivi Verified 06/20/23 18:56 ty tramadol AdvReac Intermediate N/V Verified 06/20/23 18:56 Home Medications Medication Instructions Recorded Confirmed Type multivitamin 1 tab PO QAM 03/10/19 06/20/23 History cetirizine 10 mg tablet (Zyrtec) 10 mg PO QAM 08/14/19 06/20/23 History famotidine 20 mg tablet (Pepcid) 20 mg PO BID PRN Heartburn 01/06/21 06/20/23 History albuterol sulfate 0.63 mg/3 mL 0.63 mg (3 mL) inhalation Q4H PRN 06/02/21 Rx solution for nebulization sob #90 mL CPAP Supplies #1 ea 09/22/21 04/21/23 Rx oxybutynin chloride 5 mg 5 mg PO DAILY 10/17/22 06/20/23 History tablet,extended release 24 hr atorvastatin 10 mg tablet (Lipitor) 10 mg PO QAM #90 tabs 11/10/22 06/20/23 Rx citalopram 40 mg tablet 40 mg PO QAM #90 tabs 01/10/23 06/20/23 Rx ondansetron 4 mg disintegrating 4 mg PO Q6 PRN nausea and vomiting 01/24/23 06/20/23 Rx tablet #14 tabs albuterol sulfate 90 mcg/actuation 2 puff inhalation Q4H PRN 02/13/23 06/20/23 Rx aerosol inhaler Shortness Of Breath Or Wheezing #18 grams atenolol 25 mg tablet 25 mg PO QAM #90 tabs 02/15/23 06/20/23 Rx fenofibrate micronized 134 mg 134 mg PO QAM #90 caps 02/15/23 06/20/23 Rx capsule mometasone 50 mcg/actuation nasal 2 spray intranasal HS #17 grams 03/28/23 06/20/23 Rx spray pantoprazole 20 mg tablet,delayed 20 mg PO QAM #30 tabs 04/10/23 06/20/23 Rx release (Protonix) celecoxib 200 mg capsule (Celebrex) 200 mg PO BID PRN Pain 04/21/23 06/20/23 History amoxicillin 875 mg-potassium 1 tab PO BID #20 tabs 06/16/23 06/20/23 Rx clavulanate 125 mg tablet Past Med/Surg History Medical History Acid reflux Anxiety Asthma Cerebral palsy Hearing difficulty History of kidney stones Hydroureteronephrosis Hyperlipidemia Hypertension Obesity Osteoarthritis Patellofemoral arthritis of right knee Prediabetes Sleep apnea Surgical History H/O varicose vein ligation History of esophageal dilatation History of esophagogastroduodenoscopy (EGD) History of partial knee replacement (01/2021) History of suburethral sling procedure (09/2022) S/P carpal tunnel release S/P cholecystectomy S/P lumbar fusion S/P tubal ligation 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) Family History Father Coronary heart disease Myocardial infarction Hypertension Mother Sjogren's disease Diabetes Pacemaker Interstitial lung disease Brother Diabetes Other No family history of adverse response to anesthesia No family history of bleeding disorder Denies family history of Ovarian cancer Prostate cancer Breast cancer Lung cancer Colorectal cancer Social History Smoking Status: Never smoker Second Hand Exposure: No; Do You Dip or Chew Tobacco: No; Hx Alcohol Use: Yes Alcohol Intake Frequency: Monthly or Less Hx Substance Use: No Preferred Language: Bolivian Communication Ability: Effective Communication Ability Comment: slow speech. clear speech. Visual Impairment: No Limitations Hearing Ability: Use of Hearing Aid Route Relief Driver Required: No Beliefs That Will Affect Care: None marital status: Current Living Situation: Spouse current occupational status: employed current occupation: [employer] Feels Safe at Home: Yes Childhood Exposure to Second-Hand Smoke: Yes Diet: regular Diet Comment: regular caffeine: Yes during the past year weight has: remained stable Dental Care, Regularly: Yes Physical Activity Frequency: 5-6 Times per Week Physical Activity Frequency Comment: walking Seatbelt Use: always Sunscreen Use: Yes Assistive Devices: Cane, CPAP, Glasses, Hearing Aid - Bilateral and Nebulizer Review of Systems Review of Systems: The patient denies chest pain, palpitations, shortness of breath, dyspnea on exertion, cough, lower extremity swelling, sore throat, chills, sweats, nausea, vomiting, diarrhea , constipation, abdominal pain, pelvic pain, blood in urine or stool, dysuria, urinary frequency or urgency, lightheadedness, dizziness, headache, memory loss, loss of consciousness, abnormal bruising or bleeding, imbalance, focal or generalized weakness, numbness or tingling in arms or legs, generalized arthralgias or myalgias, back or neck pain, or night sweats. The review of systems is otherwise negative other than for that already noted above, and at least 10 systems have been reviewed. Physical Exam Physical Exam: The patient is awake, alert and oriented 3, well developed and well nourished, normocephalic and atraumatic, lying in bed and in no acute distress. HEENT--PERRL, EOMI, mucous membranes and oropharynx mildly dry. Neck--supple. No JVD. No bruits. Thyroid normal, trachea midline, no adenopathy. Heart--normal S1 and S2. No murmurs, rubs or gallops. Lungs--clear bilaterally, no respiratory distress, no accessory muscle use. Abdomen--normal bowel sounds and soft. Nontender. Nondistended, no hernias or masses, no organomegaly. Extremities--no cyanosis or clubbing. No edema. There are good distal pulses b/l. Dermatologic--left elbow with pocket of fluid at the olecranon process, and diffuse erythema more proximally alf down the forearm Neurologic--cranial nerves II through XII grossly intact. Rheumatologic--normal range of motion. Psychiatric--normal affect. Results & Data Results & Data Vital Signs (Past 12 Hours) Vital Signs Temp Pulse Resp BP BP Pulse Ox O2 Del Method 06/20/23 18:24 16 144/89 H 98 Room Air 06/20/23 13:55 36.6 C 95 H 18 137/90 95 Room Air Laboratory Results Laboratory Results WBC 6.88 K/ul (4.8-10.8) 06/20/23 14: RBC 4.76 M/uL (4.20-5.40) 06/20/23 14: Hgb 13.4 g/dl (12.0-16.0) 06/20/23 14: Hct 40.3 % (37.0-47.0) 06/20/23 14: MCV 84.7 fL (80.0-100.0) 06/20/23 14: MCH 28.2 pg (25.0-34.0) 06/20/23 14: MCHC 33.3 g/dL (32.0-36.0) 06/20/23 14: RDW Std Deviation 37.7 fL (36.4-46.3) 06/20/23 14: RDW Coeff of Susan 12.4 % (11.5-14.5) 06/20/23 14: Plt Count 263 K/uL (130-400) 06/20/23 14: MPV 9.3 fL (9.4-12.4) L 06/20/23 14: Immature Gran % (Auto) 0.3 % 06/20/23 14: Neut % (Auto) 62.6 % 06/20/23 14: Lymph % (Auto) 28.1 % 06/20/23 14:29 White % (Auto) 6.5 % 06/20/23 14:29 Eos % (Auto) 1.9 % 06/20/23 14:29 Baso % (Auto) 0.6 % 06/20/23 14:29 Neut # (Auto) 4.31 K/uL (1.40-6.50) 06/20/23 14:29 Lymph # (Auto) 1.93 K/uL (1.2-3.4) 06/20/23 14: White # (Auto) 0.45 K/uL (0.11-0.59) 06/20/23 14: Eos # (Auto) 0.13 K/uL (0-0.50) 06/20/23 14: Baso # (Auto) 0.04 K/uL (0-0.2) 06/20/23 14: Immature Gran # (Auto) 0.02 K/uL (0.01-0.20) 06/20/23 14:29 ESR 58 mm/hr (0-30) H 06/20/23 14:29 Sodium 140 mmol/L (136-145) 06/20/23 14:29 Potassium 3.8 mmol/L (3.5-5.1) 06/20/23 14:29 Chloride 103 mmol/L (98-107) 06/20/23 14:29 Carbon Dioxide 30 mmol/L (21-32) 06/20/23 14:29 Anion Gap 7 (3-11) 06/20/23 14:29 BUN 18 mg/dl (6-23) 06/20/23 14:29 Creatinine 0.69 mg/dl (0.6-1.2) 06/20/23 14:29 Est Cr Clr Drug Dosing 107.5 ml/min 06/20/23 14:29 Est GFR ( Amer) 113.6 ml/min 06/20/23 14:29 Est GFR (Non-Af Amer) 98.0 ml/min 06/20/23 14:29 BUN/Creatinine Ratio 26.1 (10-20) H 06/20/23 14:29 Glucose 108 mg/dl (70-99(Fasting)) H 06/20/23 14:29 Lactate 1.0 mmol/L (0.4-2.0) 06/20/23 14: Uric Acid 5.8 mg/dl (2.6-7.2) 06/20/23 14: Calcium 9.8 mg/dl (8.6-10.3) 06/20/23 14: Total Bilirubin 0.4 mg/dl (0.2-1.0) 06/20/23 14:29 AST 17 U/L (13-39) 06/20/23 14: ALT 14 U/L (7-52) 06/20/23 14: Alkaline Phosphatase 94 U/L (34-104) 06/20/23 14: C-Reactive Protein 2.03 mg/dl (0-0.5) H 06/20/23 14: Total Protein 7.9 gm/dl (6.0-8.3) 06/20/23 14: Albumin 4.4 gm/dl (3.4-5.0) 06/20/23 14: Globulin 3.5 gm/dl (2.5-4.0) 06/20/23 14: Albumin/Globulin Ratio 1.3 (0.9-2) 06/20/23 14: Procalcitonin < 0.05 ng/ml (0-0.5) 06/20/23 14: Urine Color Yellow 06/20/23 14: Urine Appearance Clear (Clear) 06/20/23 14: Urine pH 5.5 (4.5-7.5) 06/20/23 14: Ur Specific Vaughn 1.007 (1.000-1.030) 06/20/23 14: Urine Protein Negative (Negative) 06/20/23 14: Urine Glucose (UA) Negative (Negative) 06/20/23 14: Urine Ketones Negative (Negative) 06/20/23 14: Urine Blood Negative (Negative) 06/20/23 14: Urine Nitrite Negative (Negative) 06/20/23 14: Urine Bilirubin Negative (Negative) 06/20/23 14: Urine Urobilinogen Negative (Negative) 06/20/23 14:29 Ur Leukocyte Esterase Negative (Negative) 06/20/23 14:29 Impressions Elbow X-Ray 06/20/23 13:59 XR elbow LT min 3V routine HISTORY: 53 years-old Female Continued pain/redness/swelling left elbow acute left elbow pain COMPARISON: Left forearm CT 06/16/2023 TECHNIQUE: 3 views of the left elbow FINDINGS: Mild marginal spurring of the elbow redemonstrated. No acute fracture, dislocation or osseous erosion. Subcentimeter bone fragment adjacent to the coronoid process again noted. Moderate soft tissue swelling at the olecranon process. IMPRESSION: 1. No acute fracture or dislocation. 2. No joint effusion. 3. Moderate soft tissue swelling of the olecranon soft tissue redemonstrated suggestive of bursitis. Superimposed infectious etiology should be excluded on a clinical basis. Findings are similar to the 06/16/2023 CT examination. ACT 112: Negative or not required by law. The above report was generated using voice recognition software. It may contain grammatical, syntax or spelling errors. Electronically signed by: Shashi Dimas M.D. 06/20/2023 4:07 PM We are Code Status & VTE Plan Code Status full code VTE Prophylaxis Plan VTE Prophylaxis will be ordered: Yes PG Care Time/CCT Total # of Minutes Spent Total Time Spent with Patient: Total time spent is greater than 50% in coordination of care (as documented) at patient's floor/unit and/or counseling patient: Coding Level of Care Code 32049 INT INP/OBS CARE MIN Diagnoses Bursitis of left elbow M70.22 Elbow bursitis location: olecranon bursitis Cellulitis L03.114 Laterality: left Site of cellulitis: extremity Site of cellulitis of extremity: upper extremity Urinary incontinence R32 Asthma J45.909 Acid reflux K21.9 Anxiety F41.9 Hyperlipidemia E78.5 (1) Bursitis of left elbow Elbow bursitis location: olecranon bursitis Qualified Code(s): M70.22 - Olecranon bursitis, left elbow (2) Cellulitis Laterality: left Site of cellulitis: extremity Site of cellulitis of extremity: upper extremity Qualified Code(s): L03.114 - Cellulitis of left upper limb
[2023-06-20 19:58] LABS: Uric Acid 5.8 mg/dl (2.6-7.2)
[2023-06-20] MEDS ORDERED: ONDANSETRON 4 MG OD TAB PO PRN (20:29)
[2023-06-20] MEDS ORDERED: VANCOMYCIN HCL 1,500 MG in SODIUM CHLORIDE 0.9% 500 ML IV SCH (20:29)
[2023-06-20] MEDS ORDERED: ALBUTEROL 0.083% NEBU SOLN 3 ML VIAL INH PRN (20:33)
--- NOTE | 2023-06-20 20:54 | Pharmacy Report ---
Pharmacy Vanc AUC Short Note - Date of Service June 20, 2023 - Assessment & Plan Assessment 53 year old F receiving vancomycin for treatment of SSTI. Day #1 of antimicrobial therapy: 06/20/2023 Plan Vancomycin * Load: Vancomycin 1,750 mg IV once on 06/20/23 at 1616. * Maintenance: Vancomycin 1,250 mg IV q12h starting 06/20/23 at 2100. * AUC/MONIQUE is the preferred PK/PD target for vancomycin * AUC guided dosing is effective and associated with decreased risk of n ephrotoxicity compared to traditional trough targets * Trough level of 15.4 mcg/mL is predicted to achieve target AUC/MONIQUE of 400-600 mg/L.hr and may be associated with a 11% risk of nephrotoxicity * Trough or random level ordered for: 03/22/23 with AM labs. Pharmacy will continue to follow and will adjust dose/frequency as necessary. Thank you.
[2023-06-20] MEDS: FLUTICASONE PROPIONATE NA SPR 16 GM BTL SCH (21:31)
[2023-06-20] MEDS: VANCOMYCIN HCL 1,250 MG in SODIUM CHLORIDE 0.9% 250 ML IV SCH (21:34)
[2023-06-20] MEDS: ACETAMINOPHEN 325 MG TAB PO PRN (21:41)
[2023-06-21] MEDS: CEFEPIME 2,000 MG in SYRINGE 0 ML IV SCH ×2 (04:10→15:44)
[2023-06-21 07:06] LABS: Basophils # (auto) 0.04 K/uL (0-0.2); Basophils % (auto) 0.8 %; Eosinophils # (auto) 0.17 K/uL (0-0.50); Eosinophils % (auto) 3.3 %; Hematocrit (blood only) 37.2 % (37.0-47.0); Hemoglobin 12.3 g/dl (12.0-16.0); Immature Granulocytes # (auto) 0.01 K/uL (0.01-0.20); Immature Granulocytes % (auto) 0.2 %; Lymphocytes # (auto) 1.47 K/uL (1.2-3.4); Lymphocytes % (auto) 28.8 %; Mean Corpuscular Hgb Conc 33.1 g/dL (32.0-36.0); Mean Corpuscular Volume 84.7 fL (80.0-100.0); Mean Platelet Volume 9.1 fL (9.4-12.4); Monocytes # (auto) 0.35 K/uL (0.11-0.59); Monocytes % (auto) 6.9 %; Neutrophils # (auto) 3.06 K/uL (1.40-6.50); Platelet Count 219 K/uL (130-400); RDW Coefficient of Variation 12.5 % (11.5-14.5); RDW Standard Deviation 38.1 fL (36.4-46.3); Red Blood Count 4.39 M/uL (4.20-5.40)
[2023-06-21 07:21] LABS: Albumin Level 3.8 gm/dl (3.4-5.0); Calcium 8.9 mg/dl (8.6-10.3); Creatinine Clr Calc Pharmacy 148.2 ml/min; Est GFR (African American) 126.3 ml/min; Magnesium 1.7 mg/dl (1.7-2.4); Phosphorus 3.4 mg/dl (2.5-4.9); Potassium 4.1 mmol/L (3.5-5.1)
[2023-06-21] MEDS: VANCOMYCIN HCL 1,250 MG in SODIUM CHLORIDE 0.9% 250 ML IV SCH ×2 (08:18→21:33)
[2023-06-21] MEDS: MULTIVITAMIN TAB PO SCH (08:19)
[2023-06-21] MEDS: ATORVASTATIN 10 MG TAB PO SCH (08:19)
[2023-06-21] MEDS: CITALOPRAM 40 MG TAB PO SCH (08:19)
[2023-06-21] MEDS: PANTOprazole 40 MG TAB PO SCH (08:19)
[2023-06-21] MEDS: ATENOLOL 25 MG TABLET PO SCH (08:19)
[2023-06-21] MEDS: FENOFIBRATE NANOCRYSTALLIZED 145 MG TABLET PO SCH (08:19)
[2023-06-21] MEDS: CETIRIZINE HCL 10 MG TABLET PO SCH (08:19)
[2023-06-21] MEDS: OXYBUTYNIN CHLORIDE XL 5 MG TABCR PO SCH (08:20)
[2023-06-21] MEDS: ACETAMINOPHEN 325 MG TAB PO PRN (08:22)
--- NOTE | 2023-06-21 16:45 | Orthopedic Consultation ---
Date of Consultation June 21, 2023 Assessment & Plan (1) Olecranon bursitis of left elbow: Olecranon bursitis may or may not be septic. The area of olecranon bursa was sterilely prepped with Betadine and an 18-gauge needle was passed into the bursa and aspirated for clear slightly blood-tinged fluid no pus no clear evidence of infection. The specimen was sent for Gram stain culture sensitivity and did not have enough fluid for cell count as only 4 cc of fluid was aspirated. Recommend keeping n.p.o. at midnight and reassess tomorrow if condition continues to improve may not need incision drainage of olecranon bursa. If treating this bursitis nonoperatively may need IV antibiotics up to 5 days prior to switching to oral. (2) Cellulitis of left forearm: Continue IV antibiotics until cellulitis starts diminishing to the point where oral antibiotics will be satisfactory. History of Present Illness Reason for Consultation: Cellulitis left forearm, olecranon bursitis left elbow Attending Physician: Gurmeet Holland DO History of Present Illness 53-year-old female noticed some discomfort in her left elbow this past weekend went to the emergency room treated with oral antibiotics amoxicillin but had increased cellulitis and some swelling in olecranon area. Imaging demonstrated some fluid in the olecranon bursa consistent with olecranon bursitis fluid collection. Just cellulitis of the forearm otherwise. Allergies Allergy/AdvReac Type Severity Reaction Status Date / Time oxycodone AdvReac Intermediate hyperactivi Verified 06/20/23 18:56 ty tramadol AdvReac Intermediate N/V Verified 06/20/23 18:56 Home Medications Medication Instructions Recorded Confirmed Type multivitamin 1 tab PO QAM 03/10/19 06/20/23 History cetirizine 10 mg tablet (Zyrtec) 10 mg PO QAM 08/14/19 06/20/23 History famotidine 20 mg tablet (Pepcid) 20 mg PO BID PRN Heartburn 01/06/21 06/20/23 History albuterol sulfate 0.63 mg/3 mL 0.63 mg (3 mL) inhalation Q4H PRN 06/02/21 06/20/23 Rx solution for nebulization sob #90 mL CPAP Supplies #1 ea 09/22/21 04/21/23 Rx oxybutynin chloride 5 mg 5 mg PO DAILY 10/17/22 06/20/23 History tablet,extended release 24 hr atorvastatin 10 mg tablet (Lipitor) 10 mg PO QAM #90 tabs 11/10/22 06/20/23 Rx citalopram 40 mg tablet 40 mg PO QAM #90 tabs 01/10/23 06/20/23 Rx ondansetron 4 mg disintegrating 4 mg PO Q6 PRN nausea and vomiting 01/24/23 06/20/23 Rx tablet #14 tabs albuterol sulfate 90 mcg/actuation 2 puff inhalation Q4H PRN 02/13/23 06/20/23 Rx aerosol inhaler Shortness Of Breath Or Wheezing #18 grams atenolol 25 mg tablet 25 mg PO QAM #90 tabs 02/15/23 06/20/23 Rx fenofibrate micronized 134 mg 134 mg PO QAM #90 caps 02/15/23 06/20/23 Rx capsule mometasone 50 mcg/actuation nasal 2 spray intranasal HS #17 grams 03/28/23 06/20/23 Rx spray pantoprazole 20 mg tablet,delayed 20 mg PO QAM #30 tabs 04/10/23 06/20/23 Rx release (Protonix) celecoxib 200 mg capsule (Celebrex) 200 mg PO BID PRN Pain 04/21/23 06/20/23 History amoxicillin 875 mg-potassium 1 tab PO BID #20 tabs 06/16/23 06/20/23 Rx clavulanate 125 mg tablet Patient History Medical History Acid reflux controlled Anxiety Asthma well controlled Cerebral palsy Left sided deficits, slow speech, ambulates with cane PRN Hearing difficulty History of kidney stones 2005 and 11/2019 - no surgical intervention Hydroureteronephrosis Hyperlipidemia Hypertension Obesity Osteoarthritis Patellofemoral arthritis of right knee Prediabetes Sleep apnea CPAP Surgical History H/O varicose vein ligation History of esophageal dilatation History of esophagogastroduodenoscopy (EGD) 10/19/20: MAC sedation at [facility] History of partial knee replacement (01/2021) right-01/2021 History of suburethral sling procedure (09/2022) S/P carpal tunnel release Right S/P cholecystectomy S/P lumbar fusion S/P tubal ligation 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) Family History Father Coronary heart disease Myocardial infarction Hypertension Mother , Jun 2019 Sjogren's disease Diabetes Pacemaker Interstitial lung disease Brother Diabetes Other No family history of adverse response to anesthesia No family history of bleeding disorder Denies family history of Ovarian cancer Prostate cancer Breast cancer Lung cancer Colorectal cancer Social History Smoking Status: Never smoker Second Hand Exposure: No; Do You Dip or Chew Tobacco: No; Hx Alcohol Use: Yes Alcohol type: wine Alcohol Intake Frequency: Monthly or Less Hx Substance Use: No Preferred Language: Sri [place]ankan Communication Ability: Effective Communication Ability Comment: slow speech. clear speech. Visual Impairment: No Limitations Hearing Ability: Use of Hearing Aid Application Penetration Tester Required: No Beliefs That Will Affect Care: None marital status: Current Living Situation: Spouse current occupational status: employed current occupation: [employer] Feels Safe at Home: Yes Safety Concerns: Feels Safe At This Time Childhood Exposure to Second-Hand Smoke: Yes Diet: regular Diet Comment: regular caffeine: Yes during the past year weight has: remained stable Dental Care, Regularly: Yes Physical Activity Frequency: 5-6 Times per Week Physical Activity Frequency Comment: walking Seatbelt Use: always Sunscreen Use: Yes Assistive Devices: CPAP, Glasses and Hearing Aid - Bilateral Assistive Devices Comment: hearing aids are at home Review of Systems Review of Systems: No fever chills currently Physical Exam Physical Exam: Patient has some erythema around her forearm extending up toward the elbow and above the posterior elbow to the mid humerus area posteriorly. Erythema is mild. There is a small collection in the olecranon bursa. Elbow range of motion not painful no clinical evidence of any elbow joint effusion or septic elbow. Results & Data Vital Signs (Past 12 Hours) Vital Signs Temp Pulse Resp BP Pulse Ox O2 Del Method 06/21/23 15:35 37.0 C 82 18 127/82 95 Room Air 06/21/23 08:29 Room Air 06/21/23 07:17 36.4 C L 63 18 125/78 92 Room Air Laboratory Results ESR sed rate elevated moderately and white count normal, MRSA screen negative
--- NOTE | 2023-06-21 17:17 | Hospitalist Progress Note ---
Date of Service June 21, 2023 Assessment & Plan (1) Bursitis of left elbow: Plan: This is a 53-year-old female who presents to the hospital for evaluation of left olecranon bursitis that is possibly septic. Patient is currently being treated with IV antibiotics. -Continue vancomycin and cefepime begun in ED -Orthopedic surgery consulted, appreciate recommendations: Aspirated bursa and sent fluid collection to culture. Follow results. -Expect if culture returns negative, could send home on oral antibiotics after 5 days of IV antibiotics. -N.p.o. at midnight in case incision and drainage to be done on bursa. -Follow clinical examination (2) Cellulitis: Plan: See above (3) Urinary incontinence: Plan: -continue oxybutinin (4) Asthma: Plan: -continue home regimen (5) Acid reflux: Plan: - continue PPI (6) Anxiety: Plan: -continue celexa (7) Hyperlipidemia: Plan: -continue statin (8) Hypertension: Plan: -continue atenolol Plan Dispo: Keep overnight for observation of response to IV antibiotics DVT prophylaxis: Hold chemoprophylaxis in the setting of possible incision and drainage. Diet: N.p.o. at midnight, LR at 125 cc/h at that time CODE STATUS: Full code Admission and Anticipated Discharge Date Admission Date: June 20, 2023 Supervising Physician Co-Signing Physician Notes I personally examined the patient and verified all rangel points of history and exam, discussed case, and agree with decision making with Dr Parish d/azucena fonseca. input appreciated. pt OK w staying into tomorrow vitals noted nad heent nc at mmm breathing unlabored no accessory muscles good effort cellulitis/bursitis - fortunately does not appear to need surgical washout, continue abx for now. ongoing follow up and await culture from aspirate otherwise as above Subjective Patient seen at bedside this morning. No acute events reported overnight. Patient overall doing well and notes improvement in her cellulitis since starting the antibiotics. Minimal pain with movement of her arm. Denies any nausea, shortness of breath, chest pain. Eating and drinking without difficulty. No other complaints at this time. Review of Systems Review of Systems: All systems reviewed & are unremarkable except as noted in HPI & below Physical Exam Constitutional: well developed and well nourished Eyes: + anicteric sclerae Neck: trachea midline, no thyromegaly Respiratory: normal respiratory effort, lungs clear to auscultation Cardiovascular: RRR, no murmur, no edema Gastrointestinal (Abdomen): normal bowel sounds, soft, nontender, no hepatosplenomegaly Musculoskeletal: Head/Neck/Chest: normocephalic and head atraumatic There is a fluid collection posterior to the left olecranon with overlying erythema. Not hot to the touch. No discharge. Neurologic: moves all extremities Psychiatric: A+Ox3, euthymic affect Results & Data Results & Data Vital Signs (Past 12 Hours) Vital Signs Temp Pulse Resp BP Pulse Ox O2 Del Method 06/21/23 15:35 37.0 C 82 18 127/82 95 Room Air 06/21/23 08:29 Room Air 06/21/23 07:17 36.4 C L 63 18 125/78 92 Room Air (1) Bursitis of left elbow Elbow bursitis location: olecranon bursitis Qualified Code(s): M70.22 - Olecranon bursitis, left elbow (2) Cellulitis Laterality: left Site of cellulitis: extremity Site of cellulitis of extremity: upper extremity Qualified Code(s): L03.114 - Cellulitis of left upper limb
--- NOTE | 2023-06-21 18:58 | Billing Data ---
Date of Service June 21, 2023 Coding Level of Care Code 10130 SUB INP/OBS CARE
[2023-06-21] MEDS: FLUTICASONE PROPIONATE NA SPR 16 GM BTL SCH (21:33)
[2023-06-22] MEDS: CEFEPIME 2,000 MG in SYRINGE 0 ML IV SCH (04:06)
--- NOTE | 2023-06-22 07:00 | Hospitalist Progress Note ---
Date of Service June 22, 2023 Assessment & Plan (1) Bursitis of left elbow: Plan: This is a 53-year-old female who presents to the hospital for evaluation of left olecranon bursitis that is possibly septic. Patient is currently being treated with IV antibiotics. #Olecranon bursitis -Continue vancomycin and cefepime begun in ED - Ortho consulted: bursa aspirated and awaiting culture, no I&D today, recommending continuing IV antibiotics - per ortho, no procedure planned so will resume diet today - MRSA swab negative, culture pending, - will downgrade to IV vanco only and then tomorrow may switch to oral AB, such as doxy (2) Cellulitis: Plan: See above (3) Urinary incontinence: Plan: -continue oxybutinin (4) Asthma: Plan: -continue home regimen (5) Acid reflux: Plan: - continue PPI (6) Anxiety: Plan: -continue celexa (7) Hyperlipidemia: Plan: -continue statin (8) Hypertension: Plan: -continue atenolol Plan Dispo: Keep for observation of response to IV antibiotics, possible consolidation of antibiotics DVT prophylaxis: lovenox q24h Diet: heart healthy CODE STATUS: Full code Admission and Anticipated Discharge Date Admission Date: June 20, 2023 Supervising Physician Co-Signing Physician Notes I personally examined the patient and verified all rangel points of history and exam, discussed case, and agree with decision making with Dr Tiwari doing better. No new complaints vitals noted nad heent nc at mmm breathing unlabored no accessory muscles good effort cellulitis/bursitis - fortunately does not appear to need surgical washout, asp irate with no growth to date, given the high likelihood of resistant gram- positive's (skin infection, failed Augmentin) DC cefepime, continue resistant gram-positive coverage, anticipate home on doxycycline otherwise as above Subjective Pt is a 53 yo female with a past medical history of asthma, sleep apnea, HTN, and HLD who presents to the hospital on 06/20/23 for olecranon bursitis. Today, pt states that she feels okay and has no questions or concerns. No chest pain or SOB. No fever or chills. Overall feeling well. She states that her elbow feels fine today. Review of Systems Review of Systems: Per HPI. Physical Exam Physical Exam: General:Alert and oriented, no acute distress, Cardio: Regular rate and rhythm, no murmur, Resp:Lungs clear to auscultation b/l, no wheezes or rhonchi, GI: Soft and nontender, nondistended, bowel sounds active Skin: Warm, pink, dry, wrap over L elbow Results & Data Results & Data Vital Signs (Past 12 Hours) Vital Signs Temp Pulse Resp BP Pulse Ox O2 Del Method 06/21/23 21:05 36.6 C 74 18 124/77 95 Room Air Resident Activity Tracking Resident Involvement: Resident Care Provided Care Provided: Adult Hospital Medicine (1) Bursitis of left elbow Elbow bursitis location: olecranon bursitis Qualified Code(s): M70.22 - Olecranon bursitis, left elbow (2) Cellulitis Laterality: left Site of cellulitis: extremity Site of cellulitis of extremity: upper extremity Qualified Code(s): L03.114 - Cellulitis of left upper limb
[2023-06-22 07:27] LABS: Basophils # (auto) 0.04 K/uL (0-0.2); Basophils % (auto) 0.6 %; Eosinophils # (auto) 0.21 K/uL (0-0.50); Eosinophils % (auto) 3.2 %; Hematocrit (blood only) 37.5 % (37.0-47.0); Hemoglobin 12.3 g/dl (12.0-16.0); Immature Granulocytes # (auto) 0.02 K/uL (0.01-0.20); Immature Granulocytes % (auto) 0.3 %; Lymphocytes # (auto) 1.87 K/uL (1.2-3.4); Lymphocytes % (auto) 28.7 %; Mean Corpuscular Hemoglobin 27.6 pg (25.0-34.0); Mean Corpuscular Hgb Conc 32.8 g/dL (32.0-36.0); Mean Corpuscular Volume 84.3 fL (80.0-100.0); Mean Platelet Volume 9.6 fL (9.4-12.4); Monocytes # (auto) 0.49 K/uL (0.11-0.59); Monocytes % (auto) 7.5 %; Neutrophils # (auto) 3.88 K/uL (1.40-6.50); Neutrophils % (auto) 59.7 %; Platelet Count 239 K/uL (130-400); RDW Coefficient of Variation 12.4 % (11.5-14.5); RDW Standard Deviation 37.8 fL (36.4-46.3); Red Blood Count 4.45 M/uL (4.20-5.40); White Blood Count 6.51 K/ul (4.8-10.8)
[2023-06-22 07:44] LABS: Albumin Level 3.7 gm/dl (3.4-5.0); Calcium 8.9 mg/dl (8.6-10.3); Creatinine Clr Calc Pharmacy 132.3 ml/min; Est GFR (African American) 121.7 ml/min; Magnesium 1.8 mg/dl (1.7-2.4); Potassium 3.9 mmol/L (3.5-5.1)
[2023-06-22] MEDS ORDERED: VANCOMYCIN LEVEL ONE (08:00)
[2023-06-22] MEDS: ATENOLOL 25 MG TABLET PO SCH (08:10)
[2023-06-22] MEDS: VANCOMYCIN HCL 1,250 MG in SODIUM CHLORIDE 0.9% 250 ML IV SCH (08:10)
[2023-06-22] MEDS: ATORVASTATIN 10 MG TAB PO SCH (08:10)
[2023-06-22] MEDS: CETIRIZINE HCL 10 MG TABLET PO SCH (08:11)
[2023-06-22] MEDS: OXYBUTYNIN CHLORIDE XL 5 MG TABCR PO SCH (08:11)
[2023-06-22] MEDS: FENOFIBRATE NANOCRYSTALLIZED 145 MG TABLET PO SCH (08:11)
[2023-06-22] MEDS: MULTIVITAMIN TAB PO SCH (08:11)
[2023-06-22] MEDS: CITALOPRAM 40 MG TAB PO SCH (08:11)
[2023-06-22] MEDS: PANTOprazole 40 MG TAB PO SCH (08:11)
--- NOTE | 2023-06-22 08:32 | Orthopedic Progress Note ---
Date of Service June 22, 2023 Assessment & Plan (1) Olecranon bursitis of left elbow: Plan: She has very minimal fluid collection, erythema, induration, and tenderness over her left elbow olecranon bursa. She reports significant improvement in the appearance of her elbow over the past week. I do not think at this point she requires any surgical intervention. We can let her eat today. We will continue to observe her response to IV antibiotics. Admission and Anticipated Discharge Date Admission Date: June 20, 2023 Subjective Patient reports that her left elbow is improving both in terms of appearance and pain. She reports minimal discomfort currently. Physical Exam Physical Exam: Examination of the left elbow reveals very minimal swelling and a palpable fluid collection over the olecranon bursa. Very minimal surrounding erythema, and no significant surrounding induration. Very mild tenderness to palpation over the olecranon bursa, good elbow range of motion. Results & Data Vital Signs (Past 12 Hours) Vital Signs Temp Pulse Resp BP Pulse Ox O2 Del Method 06/22/23 07:07 36.8 C 74 18 144/83 H 95 Room Air 06/21/23 21:05 36.6 C 74 18 124/77 95 Room Air Diagnostic Findings Left elbow olecranon bursa aspirate obtained yesterday shows no organisms on Gram stain. Cultures are still pending.
--- NOTE | 2023-06-22 08:46 | Pharmacy Report ---
Pharmacy PK ABX Note - Date of Service June 22, 2023 - Assessment and Plan Assessment 53 year old F receiving IV Vancomycin + Cefepime for treatment of olecranon bursitis of left elbow. BCxs = no growth after 24 hours. Elbow culture pending. Renal function stable. Day # 3 of antimicrobial therapy. Plan Vancomycin * Current regimen: 1250 mg IV every 12 hours * Random level obtained 06/22/23 resulted as 12.2 mcg/mL. * Change to 1500 mg IV every 12 hours, this is predicted to achieve target AUC/MONIQUE of 400-600 mg/L.hr * Repeat level to be ordered if IV vancomycin continued > 5 days total Cefepime 2g IV Q12H for [facility] Pharmacy will continue to follow and will adjust dose/frequency as necessary. Thank you. Pharmacy has transitioned to AUC monitoring for vancomycin. AUC/MONIQUE is the preferred PK/PD target and is associated with decreased risk of nephrotoxicity compared to traditional trough targets.
[2023-06-22] MEDS: ENOXAPARIN INJ 40 MG/0.4 ML SYR SQ SCH (10:47)
[2023-06-22] MEDS: VANCOMYCIN HCL 1,500 MG in SODIUM CHLORIDE 0.9% 500 ML IV SCH (17:19)
--- NOTE | 2023-06-22 17:50 | Billing Data ---
Date of Service June 22, 2023 Coding Level of Care Code 11952 SUB INP/OBS CARE
--- NOTE | 2023-06-22 17:51 | Billing Data ---
Date of Service June 22, 2023 Coding Level of Care Code 81563 SUB INP/OBS CARE
[2023-06-22] MEDS: FLUTICASONE PROPIONATE NA SPR 16 GM BTL SCH (19:53)
[2023-06-22] MEDS: ACETAMINOPHEN 325 MG TAB PO PRN (21:50)
[2023-06-23] MEDS: VANCOMYCIN HCL 1,500 MG in SODIUM CHLORIDE 0.9% 500 ML IV SCH (04:48)
[2023-06-23 07:02] LABS: Basophils # (auto) 0.04 K/uL (0-0.2); Basophils % (auto) 0.7 %; Eosinophils # (auto) 0.19 K/uL (0-0.50); Eosinophils % (auto) 3.4 %; Hematocrit (blood only) 37.2 % (37.0-47.0); Hemoglobin 12.3 g/dl (12.0-16.0); Immature Granulocytes # (auto) 0.02 K/uL (0.01-0.20); Immature Granulocytes % (auto) 0.4 %; Lymphocytes % (auto) 34.5 %; Mean Corpuscular Hemoglobin 28.1 pg (25.0-34.0); Mean Corpuscular Hgb Conc 33.1 g/dL (32.0-36.0); Mean Corpuscular Volume 85.1 fL (80.0-100.0); Mean Platelet Volume 9.3 fL (9.4-12.4); Monocytes % (auto) 7.3 %; Neutrophils # (auto) 2.96 K/uL (1.40-6.50); Neutrophils % (auto) 53.7 %; Platelet Count 206 K/uL (130-400); RDW Coefficient of Variation 12.2 % (11.5-14.5); RDW Standard Deviation 37.8 fL (36.4-46.3); Red Blood Count 4.37 M/uL (4.20-5.40); White Blood Count 5.51 K/ul (4.8-10.8)
--- NOTE | 2023-06-23 07:15 | Discharge Summary ---
Date of Service June 23, 2023 Admission HPI Per Admitting Provider The patient is a 53-year-old female with a past medical history including urinary incontinence, asthma, allergic rhinitis, bilateral sensorineural hearing loss, gastritis, prediabetes, sleep apnea, GERD, hyperlipidemia, hypertension, cerebral palsy, anxiety and kidney stones. Patient reports that she felt a pop in her left elbow about a week ago, since that time its been gradually getting a little bit more uncomfortable, and now over the past 24 hours she has had significantly worsening symptoms. Admission Exam Per Admitting Provider The patient is awake, alert and oriented 3, well developed and well nourished, normocephalic and atraumatic, lying in bed and in no acute distress. HEENT--PERRL, EOMI, mucous membranes and oropharynx mildly dry. Neck--supple. No JVD. No bruits. Thyroid normal, trachea midline, no adenopathy. Heart--normal S1 and S2. No murmurs, rubs or gallops. Lungs--clear bilaterally, no respiratory distress, no accessory muscle use. Abdomen--normal bowel sounds and soft. Nontender. Nondistended, no hernias or masses, no organomegaly. Extremities--no cyanosis or clubbing. No edema. There are good distal pulses b/l. Dermatologic--left elbow with pocket of fluid at the olecranon process, and diffuse erythema more proximally fdc down the forearm Neurologic--cranial nerves II through XII grossly intact. Rheumatologic--normal range of motion. Psychiatric--normal affect. Principal Diagnosis Olecranon bursitis Discharge Exam General:Alert and oriented, no acute distress, Cardio: Regular rate and rhythm, no murmur, Resp:Lungs clear to auscultation b/l, no wheezes or rhonchi, GI: Soft and nontender, nondistended, bowel sounds active Skin: Warm, pink, dry, wrap over L elbow Discharge Data Allergies Allergy/AdvReac Type Severity Reaction Status Date / Time oxycodone AdvReac Intermediate hyperactivi Verified 06/20/23 18:56 ty tramadol AdvReac Intermediate N/V Verified 06/20/23 18:56 Consultations 06/20/23 17:40 ED Decision to Admit Stat 06/21/23 09:06 Consult Orthopedic Surgery Routine Hospital Course (1) Bursitis of left elbow: This is a 53-year-old female who presents to the hospital for evaluation of left olecranon bursitis that is possibly septic. Patient is currently being treated with IV antibiotics. Pt desires to go home and has been stable. Will send home with rx for doxycycline. #Olecranon bursitis -Continue vancomycin and cefepime begun in ED - Ortho consulted: bursa aspirated and awaiting culture, no I&D today, lisa mmending continuing IV antibiotics - per ortho, no procedure planned so will resume diet today - MRSA swab negative, culture pending, negative currently - will switch from IV vanco to oral doxycycline for discharge (2) Cellulitis: See above (3) Urinary incontinence: -continue oxybutinin (4) Asthma: -continue home regimen (5) Acid reflux: - continue PPI (6) Anxiety: -continue celexa (7) Hyperlipidemia: -continue statin (8) Hypertension: -continue atenolol Plan Dispo: Home Diet: heart healthy CODE STATUS: Full code Total Time Total Time Spent Total Time Spent (In Minutes): As per attending attestation. Discharge Plan Discharge Items Patient Disposition: Home - Self-Care Reason For Visit: LEFT ELBOW BURSITIS, CELLULITIS Discharge Diagnosis: Left elbow bursitis Activity: Resume your previous activity Non-emergency contact: Primary Care Provider Call non-emergency contact if: you have any medication questions, your temperature is above 101.5, your wound has increased redness, your wound has increased drainage and your wound pain has increased Follow-up/Referrals: Carlie Scott DO [Primary Care Provider] - Diet: Regular Addtl Attending Provider Instructions: You were admitted for left elbow bursitis. You were treated with needle drainage of the fluid and antibiotics. Your symptoms have improved, and we feel it is safe for you to return home. Medications: Your medication list has been reviewed and reconciled upon discharge to ensure accuracy and continuity of care. An updated list of all your medications is included with your hospital discharge paperwork. Please review this list closely, and make note of any changes. We sent a new medication, an antibiotic, called doxycycline to your pharmacy. Take doxycycline 100 mg twice daily for 5 days. If you have any issues filling these prescriptions, please call [phone] and ask to leave a message for Dr. Breindel. Take your medications as instructed; do not skip a dose of your medicines. Make sure all of your doctors know every medicine you are taking (including izer-xin-zplmtom medicines, vitamins, and supplements). Call your primary care provider before taking any new medicines (including over- the-counter medicines, vitamins, and supplements), because some of these may interact with your current medications, or may make your symptoms worse. Tell your primary care provider if you cannot afford your medications. Activity: You can do normal everyday activities as your body allows. Take rest breaks if you feel tired. Do not overexert. Stop activity if you have pain, shortness of breath or feel dizzy. Follow-up appointments: Make an appointment with your primary care physician within one week of discharge. A copy of this summary will be sent to them. Every time you see your primary care physician, or any other doctor, bring your medication list, a list of questions, and your recent weights. CONTACT YOUR PRIMARY CARE PROVIDER if you experience any of the following: Shortness of breath or difficulty breathing Swelling of your feet, ankles, hands or abdomen Feeling tired with normal activity or experiencing dizziness or fainting Difficulty following your treatment plan, or difficulty taking medications CALL 911 OR GO TO THE EMERGENCY DEPARTMENT if you experience any of the following: Severe abdominal pain or nausea/vomiting Severe chest pain, or chest pain that radiates (moves) to your jaw or arm Sudden, severe shortness of breath or difficulty breathing Thank you for allowing us to participate in your care. Pending Studies at Discharge: No Stand-Alone Forms: My [facility] [employer], Work/School Release Medications and DC Order Prescriptions: New doxycycline monohydrate 100 mg capsule 100 mg PO BID 5 Days Qty: 10 0RF Continued albuterol sulfate 0.63 mg/3 mL solution for nebulization 0.63 mg INHALATION Q4H PRN (Reason: sob) Qty: 90 1RF atorvastatin [Lipitor] 10 mg tablet 10 mg PO QAM Qty: 90 3RF citalopram 40 mg tablet 40 mg PO QAM Qty: 90 3RF albuterol sulfate 90 mcg/actuation HFA aerosol inhaler 2 puff INHALATION Q4H PRN (Reason: Shortness Of Breath Or Wheezing) Qty: 18 1RF atenolol 25 mg tablet 25 mg PO QAM Qty: 90 2RF fenofibrate micronized 134 mg capsule 134 mg PO QAM Qty: 90 2RF mometasone 50 mcg/actuation spray,non-aerosol 2 spray INTRANASAL HS Qty: 17 5RF pantoprazole [Protonix] 20 mg tablet,delayed release (DR/EC) 20 mg PO QAM Qty: 30 5RF celecoxib [Celebrex] 200 mg capsule 200 mg PO BID PRN (Reason: Pain) cetirizine [Zyrtec] 10 mg tablet 10 mg PO QAM (DME) CPAP Supplies Misc See Rx Instructions .Route Qty: 1 0RF Rx Instructions: CPAP supplies: tubing, filters, mask, all necessary supplies oxybutynin chloride 5 mg tablet extended release 24hr 5 mg PO DAILY multivitamin Tablet 1 tab PO QAM famotidine [Pepcid] 20 mg tablet 20 mg PO BID PRN (Reason: Heartburn) amoxicillin-pot clavulanate 875-125 mg tablet 1 tab PO BID Qty: 20 0RF ondansetron 4 mg tablet,disintegrating 4 mg PO Q6 PRN (Reason: nausea and vomiting) Qty: 14 0RF Discharge Orders: Discharge Order (Routine); Ordered 06/23/23 Ordered By: Yolanda Valentin/Other Patient Handouts: Cellulitis Dc Admission Data Admit Date/Time: 06/22/23 16:39 Attending Provider: Gurmeet Holland Admit Provider: Nelson Crenshaw Primary Care Provider: Carlie Scott Other Providers: Nelson Crenshaw ; Shashi Azul Other Interventions: Discharge Summary Assessment (RN) Last Done: 06/23/23 13:48 Supervising Physician Co-Signing Physician Notes I personally examined the patient and verified all rangel points of history and exam, discussed case, and agree with decision making with Dr Tiwari doing better. No new complaints. Feels up to going home. vitals noted nad heent nc at mmm breathing unlabored no accessory muscles good effort cellulitis/bursitis - fortunately does not appear to need surgical washout, aspirate with no growth to date, given the high likelihood of resistant gram- positives (skin infection, failed Augmentin) Home on doxycycline. Outpatient follow-up next week otherwise as above Resident Activity Tracking Resident Involvement: Resident Care Provided Care Provided: Adult Hospital Medicine
[2023-06-23 07:52] LABS: Albumin Level 3.6 gm/dl (3.4-5.0); BUN Creatinine Ratio 26.4 (10-20); Calcium 8.8 mg/dl (8.6-10.3); Creatinine Clr Calc Pharmacy 139.8 ml/min; Est GFR (African American) 123.9 ml/min; Est GFR (Non-African American) 106.9 ml/min; Magnesium 1.7 mg/dl (1.7-2.4); Phosphorus 2.7 mg/dl (2.5-4.9); Potassium 3.8 mmol/L (3.5-5.1)
[2023-06-23] MEDS: MULTIVITAMIN TAB PO SCH (08:02)
[2023-06-23] MEDS: FENOFIBRATE NANOCRYSTALLIZED 145 MG TABLET PO SCH (08:02)
[2023-06-23] MEDS: PANTOprazole 40 MG TAB PO SCH (08:02)
[2023-06-23] MEDS: CITALOPRAM 40 MG TAB PO SCH (08:02)
[2023-06-23] MEDS: ATENOLOL 25 MG TABLET PO SCH (08:05)
[2023-06-23] MEDS: OXYBUTYNIN CHLORIDE XL 5 MG TABCR PO SCH (08:06)
[2023-06-23] MEDS: CETIRIZINE HCL 10 MG TABLET PO SCH (08:06)
[2023-06-23] MEDS: ATORVASTATIN 10 MG TAB PO SCH (08:06)
[2023-06-23] MEDS: ENOXAPARIN INJ 40 MG/0.4 ML SYR SQ SCH (08:06)
--- NOTE | 2023-06-23 09:33 | Orthopedic Progress Note ---
Date of Service June 23, 2023 Assessment & Plan (1) Olecranon bursitis of left elbow: Plan: Patient has progressively gotten better over the last several days with her IV antibiotics. Cultures remain negative from the left olecranon bursa aspirate. Patient may use the elbow range of motion as tolerated. Discussed that she should hold off returning to work and see how she feels the following week. Increase use as tolerated. Oral antibiotics as per medicine service. Follow-up with orthopedics if symptoms remain or worsen. Okay from orthopedics for discharge to home. Ortho will sign off at this time. Admission and Anticipated Discharge Date Admission Date: June 22, 2023 Subjective Patient sitting in her chair at the bedside. Chaim wrap is somewhat unraveled around her elbow. She states that the elbow is feeling okay. No new complaints. Physical Exam Physical Exam: Chaim wrap removed from the left elbow. She has had most of her erythema resolved at this time. There is minimal swelling around the olecranon. No drainage. She has good range of motion of the left elbow at this time with minimal discomfort. Results & Data Vital Signs (Past 12 Hours) Vital Signs Temp Pulse Resp BP Pulse Ox O2 Del Method 06/23/23 08:07 36.3 C L 73 16 143/75 H 95 Room Air 06/22/23 21:50 36.4 C L 67 18 133/84 94 Room Air
--- NOTE | 2023-06-23 19:13 | Billing Data ---
Date of Service June 23, 2023 Coding Level of Care Code 28974 IN/OBS DISCH 30 MIN/LESS
[2023-06-24] MEDS ORDERED: VANCOMYCIN LEVEL SCH (15:00)
== END 2023-06-23 15:01 | disposition home or self-care (01) | DRG 603 ==
LOC: ED 13:51 → 3E 13:51 → SUATTDRO 19:02 → 3E 20:16